=== PATIENT | male | born 1990 | race Caucasian/White ===

== ENCOUNTER 2022-06-28 18:23 | Emergency (ER) | payer OTHER ==
[2022-06-28] MEDS ORDERED: MORPHINE 4 MG/ML SYR ONE (18:34)
[2022-06-28] MEDS ORDERED: ONDANSETRON 4 MG/2 ML VIAL ONE ×3 (18:34→20:38)
[2022-06-28] MEDS ORDERED: HYDROMORPHONE HCL 1 MG/ML INJ ONE ×2 (18:48→20:37)
[2022-06-28] MEDS ORDERED: DIPHENHYDRAMINE 50 MG/ML VIAL ONE (18:52)
--- NOTE | 2022-06-28 19:11 | ER ---
Nurse's Notes [facility] Name: Curtis Castorena Jr Age: 31 yrs Sex: Male : 1990 Arrival Date: 06/28/2022 Time: 18:24 Bed 4 Private MD: Diagnosis: avulsion fracture of the distal lateral humerus;Oblique fracture of the intratrochanteric and lesser trochanter left femur Presentation: 06/28 18:34 Chief complaint: EMS states: Fell riding skateboard, landed on L side, c/o pain to L ph hip/thigh area, obvious deformity to area, also c/o L elbow pain and states that he hit the L side of his face, denies LOC, IV initiated and 150 mcg Fentanyl total given. Coronavirus screen: Vaccine status: Patient reports receiving the 1st dose of the Covid vaccine. Ebola Screen: No symptoms or risks identified at this time. Initial Sepsis Screen: Does the patient meet any 2 criteria? Yes Does the patient have a suspected source of infection? No. Patient's initial sepsis screen is negative. Risk Assessment: Do you want to hurt yourself or someone else? Patient reports no desire to harm self or others. Onset of symptoms was June 28, 2022. 18:34 Method Of Arrival: EMS: [facility] ph 18:34 Acuity: NAVEEN 2 ph 19:00 Care prior to arrival: None. Mechanism of Injury: Fall skateboard. Trauma event ph details: Injury occurred in the [facility], Injury occurred: on a street or highway. Injury occurred: June 28, 2022. Triage Assessment: 18:37 General: Appears in no apparent distress. uncomfortable, slender, well groomed, ph Behavior is calm, cooperative, appropriate for age. Pain: Complains of pain in left elbow and left quadriceps. Neuro: Level of Consciousness is awake, alert, obeys commands, Oriented to person, place, time, situation. Cardiovascular: Capillary refill < 3 seconds in bilateral fingers Patient's skin is warm and dry. Respiratory: Airway is patent Respiratory effort is even, unlabored, Respiratory pattern is regular, symmetrical. GI: No signs and/or symptoms were reported involving the gastrointestinal system. Derm: Skin is healthy with good turgor, Skin is pink, warm \\T\\ dry. Musculoskeletal: Circulation, motion, and sensation intact. Range of motion: intact in all extremities, Swelling present in left quadriceps. Historical: - Allergies: 18:41 No Known Allergies; ph - PMHx: 18:41 Diabetes mellitus; ph - PSHx: 18:41 hernia repair; testicular torsion; ph - Immunization history:: Adult Immunizations unknown. - Social history:: Smoking status: Reported history of juuling and/or vaping. - Immunization history: Last tetanus immunization: Last tetanus immunization: - up to date. Screenin:44 [facility] ED Fall Risk Assessment (Adult) History of falling in the last 3 months, ph including since admission Yes- single mechanical fall (1 pt) Confusion or Disorientation No (0 pts) Intoxicated or Sedated No (0 pts) Impaired Gait Yes (1 pt) Mobility Assist Device Used Yes (1 pt) Altered Elimination No (0 pt) Score/Fall Risk Level 0 - 2 = Low Risk Oriented to surroundings, Maintained a safe environment, Educated pt \\T\\ family on fall prevention, incl call for assistance when getting out of bed, Hourly rounding (assess needs \\T\\ fall precautionary measures) done, Used ambulatory aids as needed (educated on \\T\\ assisted with). Abuse screen: Denies threats or abuse. Denies injuries from another. Nutritional screening: No deficits noted. Tuberculosis screening: No symptoms or risk factors identified. Primary Survey: 18:33 NO uncontrolled hemorrhage observed. A: The client is awake and alert. The airway is ph patent. Breathing/Chest: Spontaneous respiratory effort, equal unlabored respirations, breath sounds clear bilaterally, regular pattern, symmetrical chest rise and fall. Circulation: No external hemorrhage present. Regular and strong central pulse, skin warm/dry/normal color. Disability Pupils are equal, round, reactive to light and accommodation. Client is alert. Exposure/Environment: All clothing and personal items were removed. Forensic evidence collection is not deemed to be indicated at this time. Items placed in patient belonging bag. There is no evidence of uncontrolled external bleeding. Obvious injury(ies) are noted at this time: swelling to L thigh. 20:17 Reassessment Breathing: Spontaneous respiratory effort, equal unlabored respirations, tw5 breath sounds clear bilaterally, regular pattern with symmetrical chest rise and fall. Secondary Survey: 18:59 Musculoskeletal: Circulation, motion, and sensation intact. Bony deformity noted of ph left quadriceps Reports pain in left elbow and left quadriceps. Assessment: 18:56 Reassessment: Patient appears in no apparent distress at this time. Patient and/or ph family updated on plan of care and expected duration. Pain level reassessed. Patient is alert, oriented x 3, equal unlabored respirations, skin warm/dry/pink. Hives noted above IV site, pt denies itching, reports hx of allergies to some adhesives, ERP notified, Benadryl ordered, see MAR. 20:15 General: Appears uncomfortable, Behavior is cooperative, appropriate for age, agitated, tw5 Reports "I am in shit ton of pain.". Neuro: Level of Consciousness is awake, alert, obeys commands, Oriented to person, place, time, situation. Vital Signs: 18:34 BP 137 / 80; Pulse 57; Resp 18; Temp 97.6; Pulse Ox 100% on R/A; Weight 70.31 kg; ph Height 6 ft. 1 in. (185.42 cm); Pain 10/10; 20:15 BP 128 / 85; Pulse 90; Resp 18; Pulse Ox 100% on R/A; Pain 9/10; tw5 21:13 BP 134 / 82; Pulse 102; Resp 19; Pulse Ox 98% on R/A; kd3 18:34 Body Mass Index 20.45 (70.31 kg, 185.42 cm) ph Tania Coma Score: 18:59 Eye Response: spontaneous(4). Verbal Response: oriented(5). Motor Response: obeys ph commands(6). Total: 15. Trauma Score (Adult): 18:59 Eye Response: spontaneous(1); Verbal Response: oriented(1); Motor Response: obeys ph commands(2); Systolic BP: > 89 mm Hg(4); Respiratory Rate: 10 to 29 per min(4); Tania Score: 15; Trauma Score: 12 ED Course: 18:24 Patient arrived in ED. eb 18:26 Porsche Rosa FNP-C is [facility]. kb 18:26 Nikita Engle MD is Attending Physician. kb 18:34 Yasmin Mercedes, YUE is Primary Nurse. ph 18:37 Triage completed. ph 18:38 Arm band placed on Patient placed in an exam room, on a stretcher, on pulse oximetry. ph 19:01 Patient has correct armband on for positive identification. Placed in gown. Bed in low ph position. Call light in reach. Side rails up X2. Pulse ox on. NIBP on. Door closed. Warm blanket given. Pillow given. 19:02 Primary Nurse role handed off by Yasmin Mercedes RN tw5 19:02 Tyshawn Niki is Primary Nurse. tw5 19:05 Femur Left XRAY In Process Unspecified. EDMS 19:05 Elbow Left 3 View XRAY In Process Unspecified. EDMS 19:15 Orthoglass splint: posterior long arm splint applied to the left arm. mm9 19:28 Initiated transfer to [facility], spoke with Melani Colbert. wm 19:59 Pt accepted for transfer w/o Doc to [facility], by Lakhwinder Curtis per Melani Colbert. wm 20:17 No provider procedures requiring assistance completed. Patient transferred, IV remains tw5 in place. 20:18 Patient maintains SpO2 saturation greater than 95% on room air. tw5 20:18 Thermoregulation: warm blanket given to patient. tw5 20:28 Attending Physician role handed off by Nikita Engle MD [facility] 20:28 Checo Carcamo MD is Attending Physician. [facility] Administered Medications: 18:41 Drug: morphine 4 mg Route: IVP; Infused Over: 4 mins; Site: right forearm; ph 19:18 Follow up: Response: No adverse reaction ph 18:41 Drug: Zofran (Ondansetron) 4 mg Route: IVP; Site: right forearm; ph 19:18 Follow up: Response: No adverse reaction ph 18:47 Drug: Dilaudid (HYDROmorphone) 1 mg Route: IVP; Site: right forearm; ph 19:18 Follow up: Response: No adverse reaction ph 18:50 Drug: Benadryl (diphenhydrAMINE) 50 mg Route: IVP; Site: right forearm; ph 19:18 Follow up: Response: No adverse reaction ph 20:15 Drug: Dilaudid (HYDROmorphone) 0.5 mg Route: IVP; Site: right forearm; tw5 21:12 Follow up: Response: No adverse reaction kd3 20:15 Drug: Zofran (Ondansetron) 4 mg Route: IVP; Site: right forearm; tw5 21:12 Follow up: Response: No adverse reaction kd3 20:38 Drug: Valium (diazepam) 5 mg Route: IVP; Site: right forearm; bb 21:12 Follow up: Response: No adverse reaction kd3 20:40 Drug: Zofran (Ondansetron) 4 mg Route: IVP; Site: right forearm; bb 21:08 Follow up: Response: No adverse reaction bb 21:12 Follow up: Response: No adverse reaction kd3 20:42 Drug: Ketorolac 30 mg Route: IVP; Site: right forearm; bb 21:07 Follow up: Response: No change in condition bb 20:47 Drug: Dilaudid (HYDROmorphone) 1 mg Route: IVP; Site: right forearm; bb 21:08 Follow up: Response: No change in condition bb 21:08 Not Given (pt transferredd): Dilaudid (HYDROmorphone) 1 mg IVP once bb Medication: 18:56 VIS not applicable for this client. ph Intake: 18:59 PO: 0ml; Total: 0ml. ph Output: 18:59 Urine: 0ml; Total: 0ml. ph Outcome: 19:10 ER care complete, transfer ordered by . kb 20:17 Transferred by ground EMS tw5 20:17 Transferred Note: report called to Evangelina TURNER at [facility]. ETA for pickup 2100 20:17 Condition: stable 20:17 Discharge instructions given to patient, family, Instructed on the need for transfer. 20:50 Transferred Note: bedside report given to ems tw5 21:11 Patient's length of stay in the Emergency Department was greater than 2 hours. due to kd3 transportatrion Patient's length of stay extended due to 21:14 Patient left the ED. kd3 Signatures: Dispatcher [employer] EDNJ Porsche Rosa, MINESWEEPING OFFICERIsmaC MINESWEEPING OFFICER-Checo Caban MD MD cha Ballard, Brenda RN RN Yasmin Brown RN RN Ana Maria Alfaro Wendy wm Wood, Tiffany tw5 Gracie Sy RN RN kd3 Trinity Alfonso mm9 Corrections: (The following items were deleted from the chart) 19:34 19:28 Initiated transfer to [facility], spoke with [facility] 20:19 20:18 Immunization history Last tetanus immunization: unknown tw5 tw5 20:25 20:13 SARS-COV-2 Antigen Rapid+I.LAB.BRZ drawn and sent. bb EDMS
--- NOTE | 2022-06-28 19:11 | EDPHYS ---
Physician Documentation [facility] Name: Curtis Castorena Jr Age: 31 yrs Sex: Male : 1990 Arrival Date: 06/28/2022 Time: 18:24 Bed 4 Private MD: ED Physician Checo Carcamo HPI: 06/28 18:33 This 31 yrs old Male presents to ER via Unassigned with complaints of skateboard kb accident, leg pain . 18:33 Trauma demographics: County: The injury occurred in [place] Location of Injury: The kb injury occurred outdoors, Date: June 28, 2022. Mechanism of injury: Fall: the patient fell skateboard, and struck a concrete surface. Associated injuries: The patient sustained left quadriceps, decreased range of motion, painful injury, swelling, left elbow, decreased range of motion, painful injury. Onset: The symptoms/episode began/occurred just prior to arrival. The patient has not experienced similar symptoms in the past. The patient has not recently seen a physician. 18:37 Pt fell while trying to do a trick on a skateboard. Reports pain to left femur and kb elbow. Historical: - Allergies: 18:41 No Known Allergies; ph - PMHx: 18:41 Diabetes mellitus; ph - PSHx: 18:41 hernia repair; testicular torsion; ph - Immunization history:: Adult Immunizations unknown. - Social history:: Smoking status: Reported history of juuling and/or vaping. - Immunization history: Last tetanus immunization: Last tetanus immunization: - up to date. ROS: 18:33 Constitutional: Negative for fever, chills, and weight loss. kb 18:33 MS/extremity: Positive for decreased range of motion, pain, swelling, tenderness, of the left quadriceps. 18:33 MS/extremity: Positive for decreased range of motion, pain, of the left elbow. 18:33 All other systems are negative. Exam: 18:36 Constitutional: This is a well developed, well nourished patient who is awake, alert, kb and in no acute distress. Head/Face: Normocephalic, atraumatic. ENT: Moist Mucous membranes Cardiovascular: Regular rate and rhythm with a normal S1 and S2. No gallops, murmurs, or rubs. No pulse deficits. Respiratory: Respirations even and unlabored. No increased work of breathing. Talking in full sentences Abdomen/GI: Soft, non-tender. No distention Skin: Warm, dry with normal turgor. Normal color. Neuro: Awake and alert, GCS 15, oriented to person, place, time, and situation. Moves all extremities. Normal gait. Psych: Awake, alert, with orientation to person, place and time. Behavior, mood, and affect are within normal limits. 18:36 Musculoskeletal/extremity: Extremities: grossly normal except: noted in the left elbow: decreased ROM, pain, tenderness, noted in the left quadriceps: decreased ROM, pain, swelling, tenderness, ROM: limited active range of motion, in the left elbow and left leg, limited active range of motion due to pain, in the left elbow and left leg, Circulation is intact in all extremities. Sensation intact. Weight bearing: is unable to bear weight. Vital Signs: 18:34 BP 137 / 80; Pulse 57; Resp 18; Temp 97.6; Pulse Ox 100% on R/A; Weight 70.31 kg; ph Height 6 ft. 1 in. (185.42 cm); Pain 10/10; 20:15 BP 128 / 85; Pulse 90; Resp 18; Pulse Ox 100% on R/A; Pain 9/10; tw5 21:13 BP 134 / 82; Pulse 102; Resp 19; Pulse Ox 98% on R/A; kd3 18:34 Body Mass Index 20.45 (70.31 kg, 185.42 cm) ph Tania Coma Score: 18:59 Eye Response: spontaneous(4). Verbal Response: oriented(5). Motor Response: obeys ph commands(6). Total: 15. Trauma Score (Adult): 18:59 Eye Response: spontaneous(1); Verbal Response: oriented(1); Motor Response: obeys ph commands(2); Systolic BP: > 89 mm Hg(4); Respiratory Rate: 10 to 29 per min(4); Tania Score: 15; Trauma Score: 12 MDM: 18:26 Patient medically screened. kb 18:35 Data reviewed: vital signs, nurses notes. Data interpreted: Pulse oximetry: on room air kb is 100 %. Interpretation: normal. 18:49 ED course: pt developed hives near IV site. Benadryl ordered. kb 19:08 Counseling: I had a detailed discussion with the patient and/or guardian regarding: the kb historical points, exam findings, and any diagnostic results supporting the discharge/admit diagnosis, radiology results, the need to transfer to another facility, for higher level of care, [facility] does not immediately have the required specialist. Physician consultation: Syed Ortiz MD was contacted at 19:08, after a discussion of the case, a recommendation for transfer for higher level of care is made. 19:50 ED course: Dr Keane accepts pt to [place] without conference. . kb 06/28 20:25 Order name: SARS-COV-2 RT PCR EDMS 06/28 18:26 Order name: Femur Left XRAY; Complete Time: 19:28 kb 06/28 18:26 Order name: Elbow Left 3 View XRAY; Complete Time: 19:24 kb 06/28 18:38 Order name: Posterior Elbow Splint; Complete Time: 19:15 kb Administered Medications: 18:41 Drug: morphine 4 mg Route: IVP; Infused Over: 4 mins; Site: right forearm; ph 19:18 Follow up: Response: No adverse reaction ph 18:41 Drug: Zofran (Ondansetron) 4 mg Route: IVP; Site: right forearm; ph 19:18 Follow up: Response: No adverse reaction ph 18:47 Drug: Dilaudid (HYDROmorphone) 1 mg Route: IVP; Site: right forearm; ph 19:18 Follow up: Response: No adverse reaction ph 18:50 Drug: Benadryl (diphenhydrAMINE) 50 mg Route: IVP; Site: right forearm; ph 19:18 Follow up: Response: No adverse reaction ph 20:15 Drug: Dilaudid (HYDROmorphone) 0.5 mg Route: IVP; Site: right forearm; tw5 21:12 Follow up: Response: No adverse reaction kd3 20:15 Drug: Zofran (Ondansetron) 4 mg Route: IVP; Site: right forearm; tw5 21:12 Follow up: Response: No adverse reaction kd3 20:38 Drug: Valium (diazepam) 5 mg Route: IVP; Site: right forearm; bb 21:12 Follow up: Response: No adverse reaction kd3 20:40 Drug: Zofran (Ondansetron) 4 mg Route: IVP; Site: right forearm; bb 21:08 Follow up: Response: No adverse reaction bb 21:12 Follow up: Response: No adverse reaction kd3 20:42 Drug: Ketorolac 30 mg Route: IVP; Site: right forearm; bb 21:07 Follow up: Response: No change in condition bb 20:47 Drug: Dilaudid (HYDROmorphone) 1 mg Route: IVP; Site: right forearm; bb 21:08 Follow up: Response: No change in condition bb 21:08 Not Given (pt transferredd): Dilaudid (HYDROmorphone) 1 mg IVP once bb Disposition: 06/29 07:02 Co-signature as Attending Physician, Nikita Engle MD I agree with the assessment and rn plan of care. Attestation: The patient's history, exam findings, diagnostics, and a summary of any interventions or procedures was reviewed in detail with Porsche NIETO. Disposition Summary: 06/28/22 19:10 Transfer Ordered Transfer Location: [facility] Reason: Higher level of care kb Condition: Stable kb Problem: new kb Symptoms: are unchanged kb Accepting Physician: Dr. Keane(06/28/22 21:14) kd3 Diagnosis - Displaced femur fracture - left kb - Elbow fracture - left kb - avulsion fracture of the distal lateral humerus kb - Oblique fracture of the intratrochanteric and lesser trochanter left femur kb Forms: - Medication Reconciliation Form kb - SBAR form kb Signatures: Dispatcher [employer] Porsche Dejesus FNP-C FNP-CkCheco Browning MD MD cha Ballard, Brenda, RN RN Nikita Lake MD MD rn Hall, Patricia, RN RN Niki Villagran tw5 Gracie Sy RN RN kd3 Corrections: (The following items were deleted from the chart) 06/28 19:28 19:10 Dr valentin kb 19:52 19:28 Dr valentin kb 20:19 20:18 Immunization history Last tetanus immunization: unknown tw tw5 20:25 19:26 SARS-COV-2 Antigen Rapid+I.LAB.BRZ ordered. [facility] EDMI 21:14 19:52 Dr. Lakhwinder valentin kd3
--- NOTE | 2022-06-28 19:23 | RAD REPORT ---
EXAM DESCRIPTION: RAD - Elbow Left 3 View - 06/28/2022 7:03 pm CLINICAL HISTORY: Left elbow pain status post trauma FINDINGS: 2.6 centimeter avulsion fracture of the distal lateral humerus. This probably represents the lateral humeral condyle. If so then there is also a a dislocation of the radio capitellum joint
--- NOTE | 2022-06-28 19:25 | RAD REPORT ---
EXAM DESCRIPTION: RAD - Femur Left - 06/28/2022 7:03 pm CLINICAL HISTORY: Left leg pain FINDINGS: Oblique fracture involves the intratrochanteric and lesser trochanter left femur. It exten ds into the left femoral diaphysis. There is moderate displacement of fracture fragments and angulation present at the fracture site. The craniocaudal length of the fracture is 15 centimeters.
[2022-06-28] MEDS ORDERED: HYDROMORPHONE HCL 0.5 MG/0.5 ML INJ ONE (20:03)
[2022-06-28] MEDS ORDERED: DIAZEPAM 10 MG/2 ML INJ SYRINGE ONE (20:38)
[2022-06-28] MEDS ORDERED: KETOROLAC 30 MG/ML INJ ONE (20:38)
[2022-06-28 21:24] VITALS: TEMP 97.6
[2022-06-28 21:30] VITALS: BP 134/82; O2SAT 98
== END 2022-06-28 21:14 | disposition short-term general hospital (02) ==
LOC: ER 18:23
PROC: 2W3BX1Z Immobilization of Left Upper Arm using Splint (ICD-10-PCS; principal; 2022-06-28)
DX: S42.402A Unspecified fracture of lower end of left humerus, initial encounter for closed fracture (principal); S72.122A Displaced fracture of lesser trochanter of left femur, initial encounter for closed fracture; Z20.822 Contact with and (suspected) exposure to COVID-19
CPT/HCPCS: 73080; 73552; 96375; 96374; 99285; 29105; U0003; J1200; J3360; J1170 ×3; J2405 ×3

== ENCOUNTER 2022-09-02 19:17 | Emergency (ER) | payer OTHER ==
--- OUTSIDE RECORDS SUMMARY | 2022-09-02 19:24 | XMS REPORT | Continuity of Care Document ---
:1990 Author Organization [facility] t Address [address] [place] [address] Care Team Providers Name Role Phone Pcp, Patient Does Not Have A Primary Care Physician +[id number] JACOB BARAKAT Attending Clinician Unavailable JOHN CATHERINE Attending Clinician Unavailable COREY SANTOS Attending Clinician Unavailable Corey Clinton Attending Clinician Leonidas_A Attending Clinician Unavailable ELISEO GOLDSTEIN Attending Clinician Unavailable Jenna Lambert Attending Clinician Leonidas_A Admitting Clinician Unavailable Payers Payer Name Policy Type Policy Number Effective Date Expiration Date [facility] [id number] 2016 00:00:00 [facility] [id number] 2022 00:00:00 REGION 4 Problems Condition Condition Condition Status Onset Resolution Last Treating Co mments Source Name Details Category Date Date Treatment Clinician Date Displaced Displaced Disease Active [place] fracture fracture 2-08 Health of lateral of lateral 00:00: condyle of condyle of 00 left left humerus humerus with with routine routine healing healing Displaced Displaced Disease Active [place] fracture fracture 2-08 Health of lateral of lateral 00:00: epicondyle epicondyle 00 of left of left humerus humerus with with routine routine healing healing Displaced Displaced Disease Active UT subtrochan subtrochan 1-18 He alth teric teric 00:00: fracture fracture 00 of left of left femur, femur, initial initial encounter encounter for closed for closed fracture fracture Hyperglyce Hyperglyce Disease Active Deangelo thompson 6-28 ity of 00:00: [place] [address] Medical Branch Allergies, Adverse Reactions, Alerts Allergy Allergy Status Severity Reaction(s) Onset Inactive Treating Comm ents Source Name Type Date Date Clinician NO KNOWN Drug Active Univers ALLERGIE Class ity of S [place] [facility] Social History Social Habit Start Date Stop Date Quantity Comments Source Exposure to 2022-07-28 2022-08-07 Not sure [facility] SARS-CoV-2 (event) 00:00:00 12:37:00 [facility] 1990 [facility] [place] [facility] Medical Branch Smoking Status Start Date Stop Date Source Former Smoker [place] Gabe [facility] Tobacco smoking consumption [facility] Medical unknown Branch Medications Ordered Filled Start Stop Current Ordering Indication Dosage Frequency Signature Comments Components Source Medication Medication Date Date Medication? Clinician (SIG) Name Name magnesium 2022- Yes 2g 2 g, IV Univ ers sulfate in 09-02 Piggyback, it y of water 2 23:30: 11:29 Administer Kaleb as gram/50 mL 00 :00 over 60 Medica l (4 %) Minutes, Branch infusion 2 ONCE, 1 g dose, On Fri09/02/22 at 1730, Routine HYDROcodone 2022- Yes [id number] 1{tbl} Q6H Take 1 UT -acetaminop 2-03 -11 tablet by Vinny tyler ([place]) 00:00: 05:59 mouth 5-325 MG 00 :00 every 6 tablet (six) hours if needed for severe pain for up to 7 days. HYDROcodone 2022- Yes [id number] 1{tbl} Q6H Take 1 UT -acetaminop 2-03 02-11 tablet by Vinny tyler ([place]) 00:00: 05:59 mouth 5-325 MG 00 :00 every 6 tablet (six) hours if needed for severe pain for up to 7 days. methocarbam 2022- Yes [id number] 500mg Take 1 UT ol 07-25 tablet Health (Robaxin) 00:00: 05:59 (500 mg 500 MG 00 :00 total) by tablet mouth 1 (one) time each day if needed for muscle spasms for up to 20 days. methocarbam [id number] 500mg Take 1 UT ol 07-25 tablet Health (Robaxin) 00:00: 05:59 (500 mg 500 MG 00 :00 total) by tablet mouth 1 (one) time each day if needed for muscle spasms for up to 20 days. naloxone Yes [id number] 4mg Administer UT (Narcan) 4 07-18 1 spray (4 He alth mg/0.1 mL 00:00: 05:59 mg total) nasal spray 00 :00 into affected nostril(s) if needed for opioid reversal. May repeat every 2-3 minutes if needed, alternatin g nostrils, until medical assistance becomes available. naloxone Yes [id number] 4mg Administer UT (Narcan) 4 07-18 1 spray (4 He alth mg/0.1 mL 00:00: 05:59 mg total) nasal spray 00 :00 into affected nostril(s) if needed for opioid reversal. May repeat every 2-3 minutes if needed, alternatin g nostrils, until medical assistance becomes available. naloxone Yes [id number] 4mg Administer UT (Narcan) 4 07-18 1 spray (4 He alth mg/0.1 mL 00:00: 05:59 mg total) nasal spray 00 :00 into affected nostril(s) if needed for opioid reversal. May repeat every 2-3 minutes if needed, alternatin g nostrils, until medical assistance becomes available. naloxone Yes [id number] 4mg Administer UT (Narcan) 4 07-18 1 spray (4 He alth mg/0.1 mL 00:00: 05:59 mg total) nasal spray 00 :00 into affected nostril(s) if needed for opioid reversal. May repeat every 2-3 minutes if needed, alternatin g nostrils, until medical assistance becomes available. gabapentin Yes [id number] 300mg Q.[id number] Take 1 UT (Neurontin) 07-18 [id number] capsule Health 300 MG 00:00: 05:59 3D (300 mg capsule 00 :00 total) by mouth in the morning and 1 capsule (300 mg total) at noon and 1 capsule (300 mg total) in the evening. gabapentin 2022- Yes [id number] 300mg Q.[id number] Take 1 UT (Neurontin) 07-18 [id number] capsule Health 300 MG 00:00: 05:59 3D (300 mg capsule 00 :00 total) by mouth in the morning and 1 capsule (300 mg total) at noon and 1 capsule (300 mg total) in the evening. gabapentin 2022- Yes [id number] 300mg Q.[id number] Take 1 UT (Neurontin) 07-18 [id number] capsule Health 300 MG 00:00: 05:59 3D (300 mg capsule 00 :00 total) by mouth in the morning and 1 capsule (300 mg total) at noon and 1 capsule (300 mg total) in the evening. gabapentin 2022- Yes [id number] 300mg Q.[id number] Take 1 UT (Neurontin) 07-18 [id number] capsule Health 300 MG 00:00: 05:59 3D (300 mg capsule 00 :00 total) by mouth in the morning and 1 capsule (300 mg total) at noon and 1 capsule (300 mg total) in the evening. HYDROcodone 2022- Yes [id number] 1{tbl} Q6H Take 1 UT -acetaminop 07-18 tablet by Vinny tyler ([place]) 00:00: 05:59 mouth 5-325 MG 00 :00 every 6 tablet (six) hours if needed for severe pain for up to 7 days. methocarbam 2022- Yes [id number] 500mg Q.[id number] Take 1 UT ol 07-18 [id number] tablet Health (Robaxin) 00:00: 05:59 3D (500 mg 500 MG 00 :00 total) by tablet mouth in the morning and 1 tablet (500 mg total) at noon and 1 tablet (500 mg total) in the evening. Do all this for 7 days. HYDROcodone 2022- Yes [id number] 1{tbl} Q6H Take 1 UT -acetaminop 07-18 tablet by He chandu tyler ([place]) 00:00: 05:59 mouth 5-325 MG 00 :00 every 6 tablet (six) hours if needed for severe pain for up to 7 days. methocarbam 2022- Yes [id number] 500mg Q.[id number] Take 1 UT ol 07-18 [id number] tablet Health (Robaxin) 00:00: 05:59 3D (500 mg 500 MG 00 :00 total) by tablet mouth in the morning and 1 tablet (500 mg total) at noon and 1 tablet (500 mg total) in the evening. Do all this for 7 days. insulin Yes 20U inject 20 Unive rs glargine,hu 6-28 Units ity of .rec.anlog 14:36: under the ex (LANTUS 32 skin. Medical U-100 Branch INSULIN SC) insulin Yes 5U inject 5 Univer s lispro, 6-28 Units ity of human, 14:36: under the [place] (HUMALOG 32 skin 3 Medical U-100 (three) Branch INSULIN) times 100 unit/mL daily with injection meals. ondansetron Yes [id number] 4mg Take 1 Univers (ZOFRAN 6-28 tablet by ity of ODT) 4 mg 00:00: mouth [place] disintegrat 00 every 8 Medic al ing tablet (eight) Branch hours as needed for Nausea and Vomiting (N/V). ondansetron Yes [id number] 8mg Take 1 Univers 8 mg tablet 6-28 tablet by ity of 00:00: mouth [place] 00 every 8 Medical (eight) Branch hours as needed for Nausea and Vomiting (N/V). gabapentin gabapentin No gabapentin [place] 300 mg 300 mg 300 mg [facility] capsule capsule capsule Urolog y TAKE 1 TAKE 1 TAKE 1 CAPSULE BY CAPSULE BY CAPSULE BY MOUTH EVERY MOUTH EVERY MOUTH 8 HOURS FOR 8 HOURS FOR EVERY 8 7 DAYS. 7 DAYS. HOURS FOR 7 DAYS. hydrocodone hydrocodone No hydrocodon [place] 5 5 e 5 [facility] mg-acetamin mg-acetamin mg-acetami Urology ophen 325 ophen 325 nophen 325 mg tablet mg tablet mg tablet TAKE 1 TAKE 1 TAKE 1 TABLET BY TABLET BY TABLET BY MOUTH EVERY MOUTH EVERY MOUTH 6 HOURS FOR 6 HOURS FOR EVERY 6 UP TO 7 UP TO 7 HOURS FOR DAYS DAYS UP TO 7 NEEDED FOR NEEDED FOR DAYS SEVERE PAIN SEVERE PAIN NEEDED FOR SEVERE PAIN methocarbam methocarbam No methocarba [place] ol 750 mg ol 750 mg mol 750 mg [facility] tablet TAKE tablet TAKE tablet Urology 1 TABLET BY 1 TABLET BY TAKE 1 MOUTH EVERY MOUTH EVERY TABLET BY 6 HOURS FOR 6 HOURS FOR MOUTH 7 DAYS. 7 DAYS. EVERY 6 HOURS FOR 7 DAYS. naproxen naproxen No naproxen Iliana ston 500 mg 500 mg 500 mg [facility] tablet TAKE tablet TAKE tablet Urology 1 TABLET BY 1 TABLET BY TAKE 1 MOUTH EVERY MOUTH EVERY TABLET BY 12 HOURS 12 HOURS MOUTH FOR 7 DAYS FOR 7 DAYS EVERY 12 HOURS FOR 7 DAYS polyethylen polyethylen No polyethyle [place] e glycol e glycol ne glycol Me tro 3350 17 3350 17 3350 17 Urolog y gram/dose gram/dose gram/dose oral powder oral powder oral DISSOLVE 17 DISSOLVE 17 powder GRAMS IN GRAMS IN DISSOLVE WATER OR WATER OR 17 GRAMS JUICE AND JUICE AND IN WATER DRINK EVERY DRINK EVERY OR JUICE DAY FOR 7 DAY FOR 7 AND DRINK DAYS DAYS EVERY DAY FOR 7 DAYS gabapentin gabapentin No gabapentin [place] 300 mg 300 mg 300 mg Metro capsule capsule capsule Urolog y TAKE 1 TAKE 1 TAKE 1 CAPSULE BY CAPSULE BY CAPSULE BY MOUTH EVERY MOUTH EVERY MOUTH 8 HOURS FOR 8 HOURS FOR EVERY 8 7 DAYS. 7 DAYS. HOURS FOR 7 DAYS. hydrocodone hydrocodone No hydrocodon [place] 5 5 e 5 [facility] mg-acetamin mg-acetamin mg-acetami Urology ophen 325 ophen 325 nophen 325 mg tablet mg tablet mg tablet TAKE 1 TAKE 1 TAKE 1 TABLET BY TABLET BY TABLET BY MOUTH EVERY MOUTH EVERY MOUTH 6 HOURS FOR 6 HOURS FOR EVERY 6 UP TO 7 UP TO 7 HOURS FOR DAYS DAYS UP TO 7 NEEDED FOR NEEDED FOR DAYS SEVERE PAIN SEVERE PAIN NEEDED FOR SEVERE PAIN methocarbam methocarbam No methocarba [place] ol 750 mg ol 750 mg mol 750 mg [facility] tablet TAKE tablet TAKE tablet Urology 1 TABLET BY 1 TABLET BY TAKE 1 MOUTH EVERY MOUTH EVERY TABLET BY 6 HOURS FOR 6 HOURS FOR MOUTH 7 DAYS. 7 DAYS. EVERY 6 HOURS FOR 7 DAYS. naproxen naproxen No naproxen Iliana ston 500 mg 500 mg 500 mg [facility] tablet TAKE tablet TAKE tablet Urology 1 TABLET BY 1 TABLET BY TAKE 1 MOUTH EVERY MOUTH EVERY TABLET BY 12 HOURS 12 HOURS MOUTH FOR 7 DAYS FOR 7 DAYS EVERY 12 HOURS FOR 7 DAYS polyethylen polyethylen No polyethyle [place] e glycol e glycol ne glycol Me tro 3350 17 3350 17 3350 17 Urolog y gram/dose gram/dose gram/dose oral powder oral powder oral DISSOLVE 17 DISSOLVE 17 powder GRAMS IN GRAMS IN DISSOLVE WATER OR WATER OR 17 GRAMS JUICE AND JUICE AND IN WATER DRINK EVERY DRINK EVERY OR JUICE DAY FOR 7 DAY FOR 7 AND DRINK DAYS DAYS EVERY DAY FOR 7 DAYS gabapentin gabapentin No gabapentin [place] 300 mg 300 mg 300 mg Metro capsule capsule capsule Urolog y TAKE 1 TAKE 1 TAKE 1 CAPSULE BY CAPSULE BY CAPSULE BY MOUTH EVERY MOUTH EVERY MOUTH 8 HOURS FOR 8 HOURS FOR EVERY 8 7 DAYS. 7 DAYS. HOURS FOR 7 DAYS. hydrocodone hydrocodone No hydrocodon [place] 5 5 e 5 [facility] mg-acetamin mg-acetamin mg-acetami Urology ophen 325 ophen 325 nophen 325 mg tablet mg tablet mg tablet TAKE 1 TAKE 1 TAKE 1 TABLET BY TABLET BY TABLET BY MOUTH EVERY MOUTH EVERY MOUTH 6 HOURS FOR 6 HOURS FOR EVERY 6 UP TO 7 UP TO 7 HOURS FOR DAYS DAYS UP TO 7 NEEDED FOR NEEDED FOR DAYS SEVERE PAIN SEVERE PAIN NEEDED FOR SEVERE PAIN methocarbam methocarbam No methocarba [place] ol 750 mg ol 750 mg mol 750 mg [facility] tablet TAKE tablet TAKE tablet Urology 1 TABLET BY 1 TABLET BY TAKE 1 MOUTH EVERY MOUTH EVERY TABLET BY 6 HOURS FOR 6 HOURS FOR MOUTH 7 DAYS. 7 DAYS. EVERY 6 HOURS FOR 7 DAYS. naproxen naproxen No naproxen Iliana ston 500 mg 500 mg 500 mg [facility] tablet TAKE tablet TAKE tablet Urology 1 TABLET BY 1 TABLET BY TAKE 1 MOUTH EVERY MOUTH EVERY TABLET BY 12 HOURS 12 HOURS MOUTH FOR 7 DAYS FOR 7 DAYS EVERY 12 HOURS FOR 7 DAYS polyethylen polyethylen No polyethyle [place] e glycol e glycol ne glycol Me tro 3350 17 3350 17 3350 17 Urolog y gram/dose gram/dose gram/dose oral powder oral powder oral DISSOLVE 17 DISSOLVE 17 powder GRAMS IN GRAMS IN DISSOLVE WATER OR WATER OR 17 GRAMS JUICE AND JUICE AND IN WATER DRINK EVERY DRINK EVERY OR JUICE DAY FOR 7 DAY FOR 7 AND DRINK DAYS DAYS EVERY DAY FOR 7 DAYS Vital Signs Vital Name Observation Time Observation Value Comments Source Systolic blood 2022-09-02 20:04:00 140 mm[Hg] Univer sity of pressure [facility] Diastolic blood 2022-09-02 20:04:00 83 mm[Hg] Unive rsity of [facility] Heart rate 2022-09-02 20:04:00 55 /min [facility] Body temperature 2022-09-02 20:04:00 36.56 Edna [facility] Res[facility] 2022-09-02 20:04:00 18 /min [facility] Body weight 2022-09-02 20:04:00 63.504 kg [facility] Oxygen saturation in 2022-09-02 20:04:00 99 /min [facility] Arterial blood by [facility] Pulse oximetry Branch Height 2022-08-14 00:00:00 73 [in_i] [facility] Body height 2022-08-07 18:54:00 185.4 cm [facility] Body weight 2022-08-07 18:54:00 70.308 kg [facility] BMI 2022-08-07 18:54:00 20.45 kg/m2 [facility] Procedures Procedure Date / Time Performed Performing Clinician Sourc e LIPASE 2022-09-02 21:29:00 Corey Santos [facility] MAGNESIUM 2022-09-02 21:29:00 Corey Santos [facility] COMP. METABOLIC PANEL 2022-09-02 21:29:00 Corey Santos Un [facility] ([id number]) [facility] CBC WITH DIFF 2022-09-02 21:29:00 Corey Santos [facility] COVID-19 (ID NOW 2022-09-02 21:29:00 Corey Santos [facility] RAPID TESTING) [facility] CONSENT/REFUSAL FOR 2022-09-02 19:47:27 Doctor Unassigned, No Un [facility] DIAGNOSIS AND Name [facility] TREATMENT Plan of Care Planned Activity Planned Date Details Comments Source Diagnostic Test 2022-08-14 urinalysis, Artemio montaño Pending 00:00:00 dipstick [code = Urology urinalysis, dipstick] Encounters Start End Encounter Admission Attending Care Care Encounter Source Date/Time Date/Time Type Type Clinicians Facility Department ID 2022-07-18 Outpatient [facility] [id number] [place] 12:27:15 [id number] [facility] 2022-07-17 Outpatient [facility] [id number] [place] 15:48:48 [id number] [facility] 2022-07-16 Outpatient [facility] [id number] [place] 13:44:41 [id number] [facility] 2022-07-09 Outpatient [facility] [id number] [place] 10:37:11 [id number] [facility] 2022 2022 Outpatient ROSHNI, [facility] [id number] [place] 12:15:00 12:15:00 [facility] 2022 2022 Outpatient JUAN, [facility] [id number] [place] 12:00:00 12:00:00 [facility] 2022-09-02 2022-09-02 Emergency X [facility] ERT [id number] [facility] 14:06:00 17:23:00 COREY ity [facility] 2022-09-02 2022-09-02 Emergency [facility] [id number] [facility] 14:06:00 17:23:00 Corey Jolly [place] [id number] ity [facility] [id number] [facility] [id number] [place] [address] Branch 2022-08-26 2022-08-26 Outpatient Hananel_A [facility] [id number] [place] 00:00:00 00:00:00 [id number] [facility] 2022-08-20 2022-08-20 Outpatient Hananel_A [facility] [id number] [place] 00:00:00 00:00:00 [id number] [facility] 2022-08-20 2022-08-[address] [facility] - [id number] [place] 00:00:00 00:00:00 Artemio Lauren [facility]: [id number] [facility] [address], - [facility] [id number] , Ph. 2022-08-15 2022-08-15 Outpatient CHRIS [facility] [id number] [place] 12:15:00 12:15:00 ELISEO anderson 2022-08-14 2022-08-14 Outpatient Hananel_A [facility] [id number] [place] 00:00:00 00:00:00 [id number] [facility] 2022-08-14 2022-08-14 Outpatient Hananel_A U [facility] [id number] [place] 00:00:00 00:00:00 [id number] [facility] 2022-08-14 2022-08-14 Agustin Cohen [facility] - [id number] [place] 00:00:00 00:00:00 Artemio Lauren MD: [id number] [facility] [address], [place] [address] , Ph. 2022-08-12 2022-08-12 Outpatient Hananel_A U [facility] [id number] [place] 00:00:00 00:00:00 [id number] [facility] 2022-08-07 2022-08-07 Office BALTA Catherine 6414 [id number] [place] 13:00:00 13:26:[address] [id number] Health [id number] 1 2022-08-07 2022-08-07 Office BALTA BARAKAT 6414 [id number] [place] 13:15:00 13:15:[address] [id number] Health [id number] 1 2022-08-07 2022-08-07 Outpatient [facility] [id number] [place] 13:00:00 13:00:00 Health 2022-07-18 2022-07-18 Office BALTA Wilkerson 6414 [id number] [place] 12:30:00 13:54:[address] [id number] Health [id number] 1 2022-07-18 2022-07-18 Office BALTA Goldstein 6414 [id number] [place] 12:15:00 13:48:[address] [id number] Health [id number] 1 2022-07-18 2022-07-18 Outpatient [facility] [id number] UT 12:45:00 12:45:00 Health 2022-07-10 2022-07-10 Out[facility] [id number] [place] 00:00:00 00:00:00 [id number] [facility] 2022-07-10 2022-07-10 Outpatient [place]anel_[place] [facility] [id number] [place] 00:00:00 00:00:00 [id number] [facility] 2022-07-05 2022-07-05 [id number] [place] 00:00:00 00:00:00 [id number] [facility] Results Test Description Test Time Test Comments Results Result Comments Source Urinalysis macro (dipstick) panel - Urine 2022-08-14 14:52:0 0 Test Item Value Reference Range Interpretation Comme nts leukocytes (test code = negative neg leukocytes) urobilinogen (test code = 0.2 E.U./dL sm amt (.5-1mg/dL) urobilinogen) protein (test code = negative See_Comment [Autom ated message] The protein) system which ge nerated this result tra nsmitted reference range : <=150 mg/d. The refer ence range was not used to interpret this result as normal/abnormal . pH (test code = pH) 6.0 4.5-8 blood (test code = blood) negative See_Comment [ Automated message] The system which ge nerated this result tra nsmitted reference range : <=3 RBC. The reference r blanca was not used to int erpret this result as normal/abnormal . specific gravity (test code 1.015 1.005-1.025 = specific gravity) ketone (test code = ketone) trace none bilirubin (test code = negative neg bilirubin) glucose (test code = >=1000 See_Comment [Autom ated message] The glucose) system which ge nerated this result tra nsmitted reference range : <=130 mg/d. The refer ence range was not used to interpret this result as normal/abnormal . color (test code = color) yellow yellow clarity (test code = clear clear or cloudy clarity) nitrite (test code = negative neg nitrite) [facility] UrologyUrinalysis macro (dipstick) panel - [id number] 14:52:00 Test Item Value Reference Range Interpretation Comments leukocytes (test code negative neg = leukocytes) urobilinogen (test 0.2 E.U./dL sm amt (.5-1mg/dL) code = urobilinogen) protein (test code = negative See_Comment [Autom ated protein) message] The sy stem which generated this result transmitted reference range : <=150 mg/d. The reference range was not used to interpret this result as normal/abnormal . pH (test code = pH) 6.0 4.5-8 blood (test code = negative See_Comment [Automat ed blood) message] The sy stem which generated this result transmitted reference range : <=3 RBC. The reference range was not used to interpret this result as normal/abnormal . specific gravity 1.015 1.005-1.025 (test code = specific gravity) ketone (test code = trace none ketone) bilirubin (test code negative neg = bilirubin) glucose (test code = >=1000 See_Comment [Autom ated glucose) message] The sy stem which generated this result transmitted reference range : <=130 mg/d. The reference range was not used to interpret this result as normal/abnormal . color (test code = yellow yellow color) clarity (test code = clear clear or cloudy clarity) nitrite (test code = negative neg nitrite) [facility] UrologyUrinalysis macro (dipstick) panel - [id number] 14:52:00 Test Item Value Reference Range Interpretation Comments leukocytes (test code negative neg = leukocytes) urobilinogen (test 0.2 E.U./dL sm amt (.5-1mg/dL) code = urobilinogen) protein (test code = negative See_Comment [Autom ated protein) message] The sy stem which generated this result transmitted reference range : <=150 mg/d. The reference range was not used to interpret this result as normal/abnormal . pH (test code = pH) 6.0 4.5-8 blood (test code = negative See_Comment [Automat ed blood) message] The sy stem which generated this result transmitted reference range : <=3 RBC. The reference range was not used to interpret this result as normal/abnormal . specific gravity 1.015 1.005-1.025 (test code = specific gravity) ketone (test code = trace none ketone) bilirubin (test code negative neg = bilirubin) glucose (test code = >=1000 See_Comment [Autom ated glucose) message] The sy stem which generated this result transmitted reference range : <=130 mg/d. The reference range was not used to interpret this result as normal/abnormal . color (test code = yellow yellow color) clarity (test code = clear clear or cloudy clarity) nitrite (test code = negative neg nitrite) [facility] Urology
[2022-09-02] MEDS ORDERED: ONDANSETRON 4 MG/2 ML VIAL ONE (20:44)
[2022-09-02] MEDS ORDERED: NA CHLORIDE 0.9% 1,000 ML ONE ×2 (20:44→21:50)
[2022-09-02] MEDS ORDERED: FAMOTIDINE 20 MG/2 ML VIAL IV ONE (20:45)
[2022-09-02 21:11] LABS: Hematocrit 43.1 % (39.6-49.0); Lymphocytes % 6.9 % (15.3-44.8); MCV 86.3 fL (80-100); MPV 9.2 fL (7.6-11.3)
[2022-09-02 21:23] LABS: ALT/SGPT 27 U/L (16-61); AST/SGOT 16 U/L (15-37); Albumin 4.9 g/dL (3.4-5.0); Alkaline Phosphatase 148 U/L (45-117); BUN Blood Urea Nitrogen 23 mg/dL (7-18); Bicarbonate 22 mmol/L (21-32); Bilirubin Total 0.6 mg/dL (0.2-1.0); Glomerular Filtration Rate 80 ml/min (=/>90); Glucose Level 301 mg/dL (74-106); Lipase 14 U/L (13-75); Potassium 3.7 mmol/L (3.5-5.1); Protein, Total 8.6 g/dL (6.4-8.2); Sodium Level 137 mmol/L (136-145)
[2022-09-02] MEDS ORDERED: INSULIN -REGULAR HUMAN 50 UNIT/0.5 ML ML ONE (21:49)
[2022-09-02] MEDS ORDERED: NA CHLORIDE 0.9% 100 ML ONE (21:50)
[2022-09-02 21:51] LABS: SARS-COV-2 RT PCR NEGATIVE (NEGATIVE)
[2022-09-02] MEDS ORDERED: PROMETHAZINE INJ 25 MG/ML AMP ONE (22:29)
[2022-09-02 23:33] LABS: Urine Blood Negative (Negative); Urine Glucose 2+ (Negative); Urine Protein 1+ (Negative); Urine Specific Gravity >=1.030 (1.005-1.030); Urine pH 5.5 (5.0-7.0)
[2022-09-02] MEDS ORDERED: D5 0.45 NS 1,000 ML IV ONE (23:52)
--- NOTE | 2022-09-03 00:47 | EDPHYS ---
Physician Documentation [facility] Name: Curtis Castorena Jr Age: 31 yrs Sex: Male : 1990 Arrival Date: 09/02/2022 Time: 19:21 Bed 17 Private MD: ED Physician Yuniel Meraz HPI: 09/02 23:49 This 31 yrs old Male presents to ER via Ambulatory with complaints of Vomiting, kb Anxiety, High Blood Sugar. 23:49 The patient presents to the emergency department with nausea, vomiting, diarrhea. kb Onset: The symptoms/episode began/occurred this morning. Possible causes: unknown. The symptoms are aggravated by nothing. The symptoms are alleviated by nothing. Associated signs and symptoms: Pertinent positives: diarrhea, nausea, vomiting. Severity of symptoms: At their worst the symptoms were moderate in the emergency department the symptoms are unchanged. The patient has experienced similar episodes in the past. The patient has not recently seen a physician. Historical: - Allergies: 20:16 No Known Allergies; bb - PMHx: 20:16 diabetes mellitus; bb - Immunization history:: Client reports receiving the Dario \T\ Dario single-dose vaccine. - Social history:: Smoking status: Patient denies any tobacco usage or history of. ROS: 23:48 Constitutional: Negative for fever, chills, and weight loss. kb 23:48 Abdomen/GI: Positive for nausea, vomiting, and diarrhea. 23:48 All other systems are negative. Exam: 23:48 Constitutional: This is a well developed, well nourished patient who is awake, alert, kb and in no acute distress. Head/Face: Normocephalic, atraumatic. ENT: Moist Mucous membranes Cardiovascular: Regular rate and rhythm with a normal S1 and S2. No gallops, murmurs, or rubs. No pulse deficits. Respiratory: Respirations even and unlabored. No increased work of breathing. Talking in full sentences Abdomen/GI: Soft, non-tender. No distention Skin: Warm, dry with normal turgor. Normal color. MS/ Extremity: Pulses equal, no cyanosis. Neurovascular intact. Full, normal range of motion. Neuro: Awake and alert, GCS 15, oriented to person, place, time, and situation. Moves all extremities. Normal gait. 23:52 ECG was reviewed by the Attending Physician. kb Vital Signs: 20:12 BP 142 / 81; Pulse 55; Resp 23; Temp 99.2(O); Pulse Ox 100% on R/A; Weight 65.77 kg bb (R); Height 6 ft. 1 in. (185.42 cm) (R); Pain 10/10; 20:37 BP 147 / 85; Pulse 78; Resp 16; Pulse Ox 100% ; mb9 23:38 BP 136 / 65; Pulse 78; Resp 15; Pulse Ox 99% on R/A; kl 20:12 Body Mass Index 19.13 (65.77 kg, 185.42 cm) bb MDM: 20:31 Patient medically screened. kb 23:49 Differential diagnosis: gastritis, viral gastroenteritis, gastroenteritis, DKA. Data kb reviewed: vital signs, nurses notes. Consideration of Admission/Observation Patient was admitted/placed on observation. Patient will be transferred due to capacity.. Management of patient was discussed with the following: ERP. Independent interpretation of the following test(s) in the Emergency Department EKG: See my EKG interpretation above. Historians other than the Patient: Parent: Mother. Care significantly affected by the following chronic conditions: Diabetes. Counseling: I had a detailed discussion with the patient and/or guardian regarding: the historical points, exam findings, and any diagnostic results supporting the discharge/admit diagnosis, lab results, radiology results, the need to transfer to another facility. ED course: Patient is a 31-year-old male who presents for nausea, vomiting and diarrhea that started this morning. States he feels like he is in DKA. On exam patient has no abdominal tenderness, respirations even and unlabored, lungs clear throughout, nontoxic in appearance, tolerating p.o. intake. Patient educated that he should remain n.p.o. Patient still drinking his water. Serum labs completed. Anion gap of 19 with large serum ketones. Transfer to the [facility] initiated and pending.. 09/02 20:31 Order name: CMP kb 09/02 20: Order name: Lipase kb 09/03 19:31 Order name: IV Saline Lock; Complete Time: 21:01 kb 09/02 20: Order name: Labs collected and sent; Complete Time: 21:02 kb 09/02 20: Order name: Urine Dipstick-Ancillary (obtain specimen) kb 09/02 20:31 Order name: Acetone, Serum kb 09/02 20:31 Order name: EKG; Complete Time: 20:33 kb 09/02 20:31 Order name: EKG - Nurse/Tech; Complete Time: 21:01 kb 09/02 20:37 Order name: COVID-19/FLU A+B kb 09/02 21:33 Order name: ABG kb 09/02 20:34 Order name: Glucose, Ancillary Testing; Complete Time: 20:36 EDMS 09/02 21:22 Order name: CBC with Automated Diff; Complete Time: 21:23 EDMS 09/02 21:26 Order name: Comprehensive Metabolic Panel; Complete Time: 21:32 EDMS 09/02 21:26 Order name: Lipase; Complete Time: 21:32 EDMS 09/02 21:26 Order name: Acetone Level; Complete Time: 21:32 EDMS 09/02 21:51 Order name: COVID-19/FLU A+B; Complete Time: 21:53 EDMS 09/02 23:25 Order name: Glucose, Ancillary Testing; Complete Time: 23:29 EDMS 09/02 23:33 Order name: Urine Dipstick-Ancillary; Complete Time: 23:35 EDMS EC:52 Rate is 60 beats/min. Rhythm is regular. QRS [place] is Normal. NE interval is normal at kb 120 msec. QRS interval is normal at 94 msec. QT interval is normal at 456 msec. Administered Medications: 21:02 Drug: NS 0.9% 1000 ml Route: IV; Rate: 1 bolus; Site: left antecubital; mb9 21:02 Drug: Pepcid (famotidine) 20 mg Route: IVP; Site: left antecubital; mb9 21:02 Drug: Zofran (Ondansetron) 4 mg Route: IVP; Site: left antecubital; mb9 22:04 Drug: NS 0.9% 1000 ml Route: IV; Rate: 1000 ml; Site: left antecubital; kl 22:05 Drug: Insulin Drip - (Insulin Regular Human 100 units, NS 0.9% 100 ml) {Co-Signature: cecil jb4 (Merlin Narayan RN).} Route: IV; Rate: calculated rate; Site: left antecubital; 23:30 Follow up: Response: Blood sugar is lowered; Blood sugar is lowered to 189 rate kl deccreased to 2.5 units/hr 22:25 Drug: Phenergan (promethazine) 12.5 mg Route: IM; Site: left deltoid; kl 22:49 Follow up: Response: No adverse reaction; Marked relief of symptoms kl 23:55 Drug: D5-1/2 NS 1000 ml Route: IV; Rate: 150 ml/hr; Site: left antecubital; kl Disposition Summary: 09/03/22 00:46 Transfer Ordered Accepting Physician: Dr valentin Transfer Location: [facility] kb Reason: Higher level of care kb Condition: Stable kb Problem: new kb Symptoms: are unchanged kb Diagnosis - Diabetes mellitus due to underlying condition with ketoacidosis kb Discharge Instructions: - Discharge Summary Sheet bd Forms: - SBAR form bd - Medication Reconciliation Form kb Signatures: Dispatcher [employer] EDPorsche Lyon FNP-C FNP-Chelsie Elizabeth RN aNdiya Tena RN Lissa Riddle RN RN mb9 Merlin Narayan RN jb4 Corrections: (The following items were deleted from the chart) 21:42 20:32 CBC+H.LAB.BRZ ordered. EDMS HIDALGO
--- NOTE | 2022-09-03 00:47 | ER ---
Nurse's Notes [facility] Name: Curtis Castorena Jr Age: 31 yrs Sex: Male : 1990 Arrival Date: 09/02/2022 Time: 19:21 Bed 17 Private MD: Diagnosis: Diabetes mellitus due to underlying condition with ketoacidosis Presentation: 09/02 20:12 Chief complaint: Patient states: he thinks he has DKA he has been vomiting since 0500 bb this morning with diarrhea went to [facility] this morning and he was not seen. Coronavirus screen: At this time, the client does not indicate any symptoms associated with coronavirus-19. Ebola Screen: No symptoms or risks identified at this time. Initial Sepsis Screen: Does the patient meet any 2 criteria? No. Patient's initial sepsis screen is negative. Does the patient have a suspected source of infection? No. Patient's initial sepsis screen is negative. Risk Assessment: Do you want to hurt yourself or someone else? Patient reports no desire to harm self or others. Onset of symptoms was September 02, 2022. 20:12 Method Of Arrival: Ambulatory bb 20:12 Acuity: NAVEEN 2 bb Triage Assessment: 20:16 General: Appears uncomfortable, ill, Behavior is anxious. Pain: Complains of pain in bb all over. Neuro: Level of Consciousness is awake, alert, obeys commands, Oriented to person, place, time, situation. Cardiovascular: Capillary refill < 3 seconds Patient's skin is warm and dry. Respiratory: Respiratory effort is unlabored, Respiratory pattern is tachypnea. GI: Reports vomiting, since this morning. Derm: Skin is pink, warm \T\ dry. Musculoskeletal: Circulation, motion, and sensation intact. Historical: - Allergies: 20:16 No Known Allergies; bb - PMHx: 20:16 diabetes mellitus; bb - Immunization history:: Client reports receiving the Dario \T\ Dario single-dose vaccine. - Social history:: Smoking status: Patient denies any tobacco usage or history of. Screenin:38 [facility] ED Fall Risk Assessment (Adult) History of falling in the last 3 months, mb9 including since admission No falls in past 3 months (0 pts) Confusion or Disorientation No (0 pts) Intoxicated or Sedated No (0 pts) Impaired Gait No (0 pts) Mobility Assist Device Used No (0 pt) Altered Elimination No (0 pt) Score/Fall Risk Level 0 - 2 = Low Risk Oriented to surroundings, Maintained a safe environment, Educated pt \T\ family on fall prevention, incl call for assistance when getting out of bed. Abuse screen: Denies threats or abuse. Nutritional screening: No deficits noted. Nutritional screening: No deficits noted. Tuberculosis screening: No symptoms or risk factors identified. Assessment: 20:26 Reassessment: pt brought back to ER room. mb9 20:36 General: Appears in no apparent distress. Behavior is agitated, anxious. Pain: Denies mb9 pain. Neuro: Level of Consciousness is awake, alert, obeys commands, Oriented to person, place, time, situation, Appropriate for age. Cardiovascular: Patient's skin is warm and dry. Respiratory: Airway is patent Respiratory effort is even, unlabored, Respiratory pattern is regular, symmetrical. GI: Abdomen is flat, non-distended, Bowel sounds present X 4 quads. Abd is soft Abd is non tender Reports diarrhea, intolerance of fluids, nausea. :. Derm: Skin is pink, warm \T\ dry. Musculoskeletal: Range of motion: intact in all extremities. 21:16 Reassessment: Report given to YUE Jeter. mb9 23:37 Reassessment: Patient appears in no apparent distress at this time. Patient and/or kl family updated on plan of care and expected duration. Pain level reassessed. Patient is alert, oriented x 3, equal unlabored respirations, skin warm/dry/pink. Patient states feeling better. Patient states symptoms have improved. Vital Signs: 20:12 BP 142 / 81; Pulse 55; Resp 23; Temp 99.2(O); Pulse Ox 100% on R/A; Weight 65.77 kg bb (R); Height 6 ft. 1 in. (185.42 cm) (R); Pain 10/10; 20:37 BP 147 / 85; Pulse 78; Resp 16; Pulse Ox 100% ; mb9 23:38 BP 136 / 65; Pulse 78; Resp 15; Pulse Ox 99% on R/A; kl 20:12 Body Mass Index 19.13 (65.77 kg, 185.42 cm) ED Course: 19:21 Patient arrived in ED. ja2 19:52 Porsche Rosa FNP-C is PHCP. kb 19:52 Yuniel Merza MD is Attending Physician. kb 20:16 Triage completed. bb 20:16 Arm band placed on. bb 20:26 Lissa Ospina, YUE is Primary Nurse. mb9 20:38 Placed in gown. Bed in low position. Call light in reach. Side rails up X 1. Client mb9 placed on continuous cardiac and pulse oximetry monitoring. NIBP monitoring applied. groundwater monitoring technician on. 21:01 COVID-19/FLU A+B Sent. mb9 21:01 CMP Sent. mb9 21:01 Lipase Sent. mb9 21:02 EKG done, by ED staff, reviewed by Porsche NIETO. Inserted saline lock: 20 mb9 gauge in left antecubital area, using aseptic technique. Blood collected. 22:45 No apparent distress. Resting quietly. Appears to be sleeping. kl 23:39 Clinicals faxed to [facility]. bd Administered Medications: 21:02 Drug: NS 0.9% 1000 ml Route: IV; Rate: 1 bolus; Site: left antecubital; mb9 21:02 Drug: Pepcid (famotidine) 20 mg Route: IVP; Site: left antecubital; mb9 21:02 Drug: Zofran (Ondansetron) 4 mg Route: IVP; Site: left antecubital; mb9 22:04 Drug: NS 0.9% 1000 ml Route: IV; Rate: 1000 ml; Site: left antecubital; kl 22:05 Drug: Insulin Drip - (Insulin Regular Human 100 units, NS 0.9% 100 ml) {Co-Signature: cecil jb4 (Merlin Narayan RN).} Route: IV; Rate: calculated rate; Site: left antecubital; 23:30 Follow up: Response: Blood sugar is lowered; Blood sugar is lowered to 189 rate kl deccreased to 2.5 units/hr 22:25 Drug: Phenergan (promethazine) 12.5 mg Route: IM; Site: left deltoid; kl 22:49 Follow up: Response: No adverse reaction; Marked relief of symptoms kl 23:55 Drug: D5-1/2 NS 1000 ml Route: IV; Rate: 150 ml/hr; Site: left antecubital; kl Medication: 20:38 VIS not applicable for this client. mb9 Outcome: 09/03 00:46 ER care complete, transfer ordered by . kb Signatures: Porsche Rosa, SITE COORDINATOR-C SITE COORDINATOR-Meghan Cantu Kimberly, RN RN Nadiya Goodson RN RN Becky Willson Mary Beth RN RN mb9 Merlin Narayan RN jb4 Corrections: (The following items were deleted from the chart) 09/02 21:42 21:01 [facility]+H.LAB.JANELLE drawn and sent. mb9 EDMS
[2022-09-03 01:33] LABS: Potassium 3.5 mmol/L (3.5-5.1)
[2022-09-03 03:30] VITALS: TEMP 99.2
[2022-09-03 03:32] VITALS: BP 136/65; O2SAT 99
--- NOTE | 2022-09-03 17:33 | EKG ---
Test Date: 2022-09-02 Test Time: 20:57:31 Criminal Analyst: NINO MEASUREMENT RESULTS: Intervals: Rate: 60 HI: 120 QRSD: 94 QT: 456 QTc: 456 [place]: P: 68 HI: 120 QRS: 89 T: 75 INTERPRETIVE STATEMENTS: Sinus rhythm with marked sinus arrhythmia Incomplete right bundle branch block Borderline ECG No previous ECG available for comparison Electronically Signed On 09-03-22 17:31:12 MEMBERSHIP ADMINISTRATOR by Jerman Love
== END 2022-09-03 03:25 ==
LOC: ER 19:17
DX: E11.10 Type 2 diabetes mellitus with ketoacidosis without coma (principal); Z20.822 Contact with and (suspected) exposure to COVID-19
CPT/HCPCS: 96365; 96361; 93005; 85025; 80048; 36415; 82010; 82947 ×5; 81003; 83690; 80053; 0240U; 96375; 96372; 99285; 96366; J2550; J1815; J2405; J7799; J7030 ×2

== ENCOUNTER 2023-09-28 16:37 | Emergency (ER) | payer OTHER ==
--- OUTSIDE RECORDS SUMMARY | 2023-09-28 16:40 | XMS REPORT | Continuity of Care Document ---
Author Name Unknown Address [address] [facility] [address] [place] [address] [facility] thconnect Address [address] [facility] [place] [address] Care Team Providers Care Tile Layer Name Role Phone Pcp, Patient Does Not Have A Primary Care Physic sharlene Hananel_A Attending Clinician Unavailable JACOB BARAKAT Attending Clinician UnavailJOHN Ponce Attending Clinician Unavailable COREY SANTOS Attending Clinician UnavailCorey Lynn Attending Clinician ELISEO GOLDSTEIN Attending Clinician Unavaila Jenna Pepper Attending Clinician Hananel_A Admitting Clinician Unavailable Payers Payer Name Policy Type Policy Number Effective Date Expirati on Date Source [facility] OON [id number] 2016 00:00:00 [facility] 4 [id number] 2022 00:00:00 Problems Condition Name Condition Details Condition Category Status Onset Date Resolution Date Last Treatment Date Treating Clinician Comments Source Displaced fracture of lateral condyle of left humerus with routine healing Displaced fracture of lateral condyle of left humerus with routine healing Disease Active 08-07 00:00: 00 [facility] Displaced fracture of lateral epicondyle of left humerus with routine healing Displaced fracture of lateral epicondyle of left humerus with routine healing Disease Active 08-07 00:00: 00 [facility] Displaced subtrochan teric fracture of left femur, initial encounter for closed fracture Displaced subtrochan teric fracture of left femur, initial encounter for closed fracture Disease Active 1-18 00:00: 00 [facility] Hyperglyce jay Hyperglyce jay Disease Active 6- 00:00: 00 [facility] Allergies, Adverse Reactions, Alerts Allergy Name Allergy Type Status Severity Reaction(s) Onset Date Inactive Date Treating Clinician Comments Source NO KNOWN ALLERGIE S Drug Class Active [facility] Social History Social Habit Start Date Stop Date Quantity Comments Source Exposure to SARS-CoV-2 (event) 2022-07-28 00:00:00 2022-08-07 12:37:00 Not sure [facility] Sex Assigned At 1990 00:00:00 1990 00:00:00 [facility] Smoking Status Start Date Stop Date Source Former Smoker [facility] Tobacco smoking consumption unknown [facility] Medications Ordered Medication Name Filled Medication Name Start Date Stop Date Current Medication? Ordering Clinician Indication Dosage Frequency Signature (SIG) Comments Components Source magnesium sulfate in water 2 gram/50 mL (4 %) infusion 2 g 3 23:30: 00 09-03 11:29 :00 No 2g 2 g, IV Piggyback, Administer over 60 Minutes, ONCE, 1 dose, On Fri09/02/22 at 1730, Routine [facility] HYDROcodone -acetaminop hen (Navajo) 5-325 MG tablet 2- 00:00: 00 08-10 05:59 :00 No [id number] 1{tbl} Q6H Take 1 tablet by mouth every 6 (six) hours if needed for severe pain for up to 7 days. [facility] HYDROcodone -acetaminop hen (Navajo) 5-325 MG tablet 2-03 00:00: 00 08-10 05:59 :00 No [id number] 1{tbl} Q6H Take 1 tablet by mouth every 6 (six) hours if needed for severe pain for up to 7 days. [facility] methocarbam ol (Robaxin) 500 MG tablet 1-26 00:00: 00 08-15 05:59 :00 No [id number] 500mg Take 1 tablet (500 mg total) by mouth 1 (one) time each day if needed for muscle spasms for up to 20 days. [facility] methocarbam ol (Robaxin) 500 MG tablet 07-25 00:00: 00 08-15 05:59 :00 No [id number] 500mg Take 1 tablet (500 mg total) by mouth 1 (one) time each day if needed for muscle spasms for up to 20 days. [facility] naloxone (Narcan) 4 mg/0.1 mL nasal spray 07-18 00:00: 00 07-19 05:59 :00 No [id number] 4mg Administer 1 spray (4 mg total) into affected nostril(s) if needed for opioid reversal. May repeat every 2-3 minutes if needed, alternatin g nostrils, until medical assistance becomes available. [facility] naloxone (Narcan) 4 mg/0.1 mL nasal spray 07-18 00:00: 00 07-19 05:59 :00 No [id number] 4mg Administer 1 spray (4 mg total) into affected nostril(s) if needed for opioid reversal. May repeat every 2-3 minutes if needed, alternatin g nostrils, until medical assistance becomes available. [facility] naloxone (Narcan) 4 mg/0.1 mL nasal spray 07-18 00:00: 00 07-19 05:59 :00 No [id number] 4mg Administer 1 spray (4 mg total) into affected nostril(s) if needed for opioid reversal. May repeat every 2-3 minutes if needed, alternatin g nostrils, until medical assistance becomes available. [facility] naloxone (Narcan) 4 mg/0.1 mL nasal spray 07-18 00:00: 00 07-19 05:59 :00 No [id number] 4mg Administer 1 spray (4 mg total) into affected nostril(s) if needed for opioid reversal. May repeat every 2-3 minutes if needed, alternatin g nostrils, until medical assistance becomes available. [facility] gabapentin (Neurontin) 300 MG capsule 07-18 00:00: 00 08-18 05:59 :00 No [id number] 300mg Q.[id number] 3D Take 1 capsule (300 mg total) by mouth in the morning and 1 capsule (300 mg total) at noon and 1 capsule (300 mg total) in the evening. [facility] gabapentin (Neurontin) 300 MG capsule 07-18 00:00: 00 08-18 05:59 :00 No [id number] 300mg Q.[id number] 3D Take 1 capsule (300 mg total) by mouth in the morning and 1 capsule (300 mg total) at noon and 1 capsule (300 mg total) in the evening. [facility] gabapentin (Neurontin) 300 MG capsule 07-18 00:00: 00 08-18 05:59 :00 No [id number] 300mg Q.[id number] 3D Take 1 capsule (300 mg total) by mouth in the morning and 1 capsule (300 mg total) at noon and 1 capsule (300 mg total) in the evening. [facility] gabapentin (Neurontin) 300 MG capsule 07-18 00:00: 00 08-18 05:59 :00 No [id number] 300mg Q.[id number] 3D Take 1 capsule (300 mg total) by mouth in the morning and 1 capsule (300 mg total) at noon and 1 capsule (300 mg total) in the evening. [facility] HYDROcodone -acetaminop hen ([place]ajo) 5-325 MG tablet 07-18 00:00: 00 07-26 05:59 :00 No [id number] 1{tbl} Q6H Take 1 tablet by mouth every 6 (six) hours if needed for severe pain for up to 7 days. [facility] methocarbam ol (Robaxin) 500 MG tablet 07-18 00:00: 00 07-26 05:59 :00 No [id number] 500mg Q.[id number] 3D Take 1 tablet (500 mg total) by mouth in the morning and 1 tablet (500 mg total) at noon and 1 tablet (500 mg total) in the evening. Do all this for 7 days. [facility] HYDROcodone -acetaminop hen ([place]ajo) 5-325 MG tablet 07-18 00:00: 00 07-26 05:59 :00 No [id number] 1{tbl} Q6H Take 1 tablet by mouth every 6 (six) hours if needed for severe pain for up to 7 days. [facility] methocarbam ol (Robaxin) 500 MG tablet 07-18 00:00: 00 07-26 05:59 :00 No [id number] 500mg Q.[id number] 3D Take 1 tablet (500 mg total) by mouth in the morning and 1 tablet (500 mg total) at noon and 1 tablet (500 mg total) in the evening. Do all this for 7 days. [facility] insulin glarginegilaanlog (LANTUS U-100 INSULIN SC) 12-25 14:36: 32 Yes 20U inject 20 Units under the skin. [facility] insulin lispro, human, (HUMALOG U-100 INSULIN) 100 unit/mL injection 12-25 14:36: 32 Yes 5U inject 5 Units under the skin 3 (three) times daily with meals. [facility] ondansetron (ZOFRAN ODT) 4 mg disintegrat ing tablet 12-25 00:00: 00 Yes [id number] 4mg Take 1 tablet by mouth every 8 (eight) hours as needed for Nausea and Vomiting (N/V). [facility] ondansetron 8 mg tablet 12-25 00:00: 00 Yes [id number] 8mg Take 1 tablet by mouth every 8 (eight) hours as needed for Nausea and Vomiting (N/V). [facility] gabapentin 300 mg capsule TAKE 1 CAPSULE BY MOUTH EVERY 8 HOURS FOR 7 DAYS. gabapentin 300 mg capsule TAKE 1 CAPSULE BY MOUTH EVERY 8 HOURS FOR 7 DAYS. No gabapentin 300 mg capsule TAKE 1 CAPSULE BY MOUTH EVERY 8 HOURS FOR 7 DAYS. [facility] hydrocodone 5 mg-acetamin ophen 325 mg tablet TAKE 1 TABLET BY MOUTH EVERY 6 HOURS FOR UP TO 7 DAYS NEEDED FOR SEVERE PAIN hydrocodone 5 mg-acetamin ophen 325 mg tablet TAKE 1 TABLET BY MOUTH EVERY 6 HOURS FOR UP TO 7 DAYS NEEDED FOR SEVERE PAIN No hydrocodon e 5 mg-acetami nophen 325 mg tablet TAKE 1 TABLET BY MOUTH EVERY 6 HOURS FOR UP TO 7 DAYS NEEDED FOR SEVERE PAIN [facility] methocarbam ol 750 mg tablet TAKE 1 TABLET BY MOUTH EVERY 6 HOURS FOR 7 DAYS. methocarbam ol 750 mg tablet TAKE 1 TABLET BY MOUTH EVERY 6 HOURS FOR 7 DAYS. No methocarba mol 750 mg tablet TAKE 1 TABLET BY MOUTH EVERY 6 HOURS FOR 7 DAYS. [facility] naproxen 500 mg tablet TAKE 1 TABLET BY MOUTH EVERY 12 HOURS FOR 7 DAYS naproxen 500 mg tablet TAKE 1 TABLET BY MOUTH EVERY 12 HOURS FOR 7 DAYS No naproxen 500 mg tablet TAKE 1 TABLET BY MOUTH EVERY 12 HOURS FOR 7 DAYS [facility] polyethylen e glycol 3350 17 gram/dose oral powder DISSOLVE 17 GRAMS IN WATER OR JUICE AND DRINK EVERY DAY FOR 7 DAYS polyethylen e glycol 3350 17 gram/dose oral powder DISSOLVE 17 GRAMS IN WATER OR JUICE AND DRINK EVERY DAY FOR 7 DAYS No polyethyle ne glycol 3350 17 gram/dose oral powder DISSOLVE 17 GRAMS IN WATER OR JUICE AND DRINK EVERY DAY FOR 7 DAYS [facility] gabapentin 300 mg capsule TAKE 1 CAPSULE BY MOUTH EVERY 8 HOURS FOR 7 DAYS. gabapentin 300 mg capsule TAKE 1 CAPSULE BY MOUTH EVERY 8 HOURS FOR 7 DAYS. No gabapentin 300 mg capsule TAKE 1 CAPSULE BY MOUTH EVERY 8 HOURS FOR 7 DAYS. [facility] hydrocodone 5 mg-acetamin ophen 325 mg tablet TAKE 1 TABLET BY MOUTH EVERY 6 HOURS FOR UP TO 7 DAYS NEEDED FOR SEVERE PAIN hydrocodone 5 mg-acetamin ophen 325 mg tablet TAKE 1 TABLET BY MOUTH EVERY 6 HOURS FOR UP TO 7 DAYS NEEDED FOR SEVERE PAIN No hydrocodon e 5 mg-acetami nophen 325 mg tablet TAKE 1 TABLET BY MOUTH EVERY 6 HOURS FOR UP TO 7 DAYS NEEDED FOR SEVERE PAIN [facility] methocarbam ol 750 mg tablet TAKE 1 TABLET BY MOUTH EVERY 6 HOURS FOR 7 DAYS. methocarbam ol 750 mg tablet TAKE 1 TABLET BY MOUTH EVERY 6 HOURS FOR 7 DAYS. No methocarba mol 750 mg tablet TAKE 1 TABLET BY MOUTH EVERY 6 HOURS FOR 7 DAYS. [facility] naproxen 500 mg tablet TAKE 1 TABLET BY MOUTH EVERY 12 HOURS FOR 7 DAYS naproxen 500 mg tablet TAKE 1 TABLET BY MOUTH EVERY 12 HOURS FOR 7 DAYS No naproxen 500 mg tablet TAKE 1 TABLET BY MOUTH EVERY 12 HOURS FOR 7 DAYS [facility] polyethylen e glycol 3350 17 gram/dose oral powder DISSOLVE 17 GRAMS IN WATER OR JUICE AND DRINK EVERY DAY FOR 7 DAYS polyethylen e glycol 3350 17 gram/dose oral powder DISSOLVE 17 GRAMS IN WATER OR JUICE AND DRINK EVERY DAY FOR 7 DAYS No polyethyle ne glycol 3350 17 gram/dose oral powder DISSOLVE 17 GRAMS IN WATER OR JUICE AND DRINK EVERY DAY FOR 7 DAYS [facility] gabapentin 300 mg capsule TAKE 1 CAPSULE BY MOUTH EVERY 8 HOURS FOR 7 DAYS. gabapentin 300 mg capsule TAKE 1 CAPSULE BY MOUTH EVERY 8 HOURS FOR 7 DAYS. No gabapentin 300 mg capsule TAKE 1 CAPSULE BY MOUTH EVERY 8 HOURS FOR 7 DAYS. [facility] hydrocodone 5 mg-acetamin ophen 325 mg tablet TAKE 1 TABLET BY MOUTH EVERY 6 HOURS FOR UP TO 7 DAYS NEEDED FOR SEVERE PAIN hydrocodone 5 mg-acetamin ophen 325 mg tablet TAKE 1 TABLET BY MOUTH EVERY 6 HOURS FOR UP TO 7 DAYS NEEDED FOR SEVERE PAIN No hydrocodon e 5 mg-acetami nophen 325 mg tablet TAKE 1 TABLET BY MOUTH EVERY 6 HOURS FOR UP TO 7 DAYS NEEDED FOR SEVERE PAIN [facility] methocarbam ol 750 mg tablet TAKE 1 TABLET BY MOUTH EVERY 6 HOURS FOR 7 DAYS. methocarbam ol 750 mg tablet TAKE 1 TABLET BY MOUTH EVERY 6 HOURS FOR 7 DAYS. No methocarba mol 750 mg tablet TAKE 1 TABLET BY MOUTH EVERY 6 HOURS FOR 7 DAYS. [facility] naproxen 500 mg tablet TAKE 1 TABLET BY MOUTH EVERY 12 HOURS FOR 7 DAYS naproxen 500 mg tablet TAKE 1 TABLET BY MOUTH EVERY 12 HOURS FOR 7 DAYS No naproxen 500 mg tablet TAKE 1 TABLET BY MOUTH EVERY 12 HOURS FOR 7 DAYS [facility] polyethylen e glycol 3350 17 gram/dose oral powder DISSOLVE 17 GRAMS IN WATER OR JUICE AND DRINK EVERY DAY FOR 7 DAYS polyethylen e glycol 3350 17 gram/dose oral powder DISSOLVE 17 GRAMS IN WATER OR JUICE AND DRINK EVERY DAY FOR 7 DAYS No polyethyle ne glycol 3350 17 gram/dose oral powder DISSOLVE 17 GRAMS IN WATER OR JUICE AND DRINK EVERY DAY FOR 7 DAYS [facility] Vital Signs Vital Name Observation Time Observation Value Comments S ource Systolic blood pressure 2022-09-02 20:04:00 140 mm[Hg] [facility] Diastolic blood pressure 2022-09-02 20:04:00 83 mm[Hg] [facility] Heart rate 2022-09-02 20:04:00 55 /min [facility] Body temperature 2022-09-02 20:04:00 36.56 [place] [facility] Respiratory rate 2022-09-02 20:04:00 18 /min [facility] Body weight 2022-09-02 20:04:00 63.504 kg [facility] Oxygen saturation in Arterial blood by Pulse oximetry 2022-09-02 20:04:00 99 /min [facility] Height 2022-08-14 00:00:00 73 [in_i] [facility] Body height 2022-08-07 18:54:00 [facility] Body weight 2022-08-07 18:54:00 70.308 [facility] BMI 2022-08-07 18:54:00 20.45 kg/m2 [facility] Procedures Procedure Date / Time Performed Performing Clinicia n Source LIPASE 2022-09-02 21:29:00 Corey Santos U [facility] MAGNESIUM 2022-09-02 21:29:00 Corey Santos [facility] COMP. METABOLIC PANEL (39819) 2022-09-02 21:29:00 Corey Santos [facility] CBC WITH DIFF 2022-09-02 21:29:00 Corey Santos [facility] COVID-19 (ID NOW RAPID TESTING) 2022-09-02 21:29:00 Corey Santos [facility] CONSENT/REFUSAL FOR DIAGNOSIS AND TREATMENT 2022-09-02 19:47:27 Doctor Unassigned, [place] [facility] Plan of Care Planned Activity Planned Date Details Comments Source Diagnostic Test Pending 2022-08-14 00:00:00 urinalysis, dipstick [code = urinalysis, dipstick] [facility] Encounters Start Date/Time End Date/Time Encounter Type Admission Type Attending Clinicians Care Facility Care Department Encounter ID Source 2022-09-17 07:31:[address] [facility] [id number] [facility] 2022-09-16 15:36:[address] [facility] [id number] [facility] 2022-07-18 12:27:[address] [facility] [id number] [facility] 2022-07-17 15:48:[address] [facility] [id number] [facility] 2022-07-16 13:44:[address] [facility] [id number] [facility] 2022-07-09 10:37:[address] [facility] [id number] [facility] 2022-11-04 00:00:00 2022-11-04 00:00:00 Outpatient Hananel_A U [facility] [id number] [facility] 2022-09-30 00:00:00 2022-09-30 00:00:00 Outpatient Hananel_A [facility] [id number] [facility] 12:15:00 2022 12:15:[address] [facility] [id number] [facility] 2022 12:00:00 2022 12:00:[address] [facility] [id number] [facility] 2022 12:00:00 2022 12:00:[address] [facility] [id number] [facility] 2022-09-02 14:06:00 2022-09-02 17:23:00 Emergency X COREY SANTOS [facility] ERT [id number] [facility] 2022-09-02 14:06:00 2022-09-02 17:23:00 Emergency Corey Santos [facility] [id number] [facility] 2022-08-26 00:00:2022-08-26 00:00:00 Outpatient Hananel_A [facility] [id number] [facility] 2022-08-26 00:00:00 2022-08-26 00:00:00 Outpatient Hananel_A [facility] [id number] [facility] 2022-08-20 00:00:00 2022-08-20 00:00:00 Outpatient Hananel_A [facility] [id number] [facility] 2022-08-20 00:00:00 2022-08-20 00:00:00 Agustin Lauren MD: [id number] [address], [place] [address] [facility] [id number] [facility] 2022-08-15 12:15:00 2022-08-15 12:15:[address] [facility] [id number] [facility] 2022-08-14 00:00:00 2022-08-14 00:00:00 Outpatient Hananel_A [facility] [id number] [facility] 2022-08-14 00:00:00 2022-08-14 00:00:00 Outpatient Hananel_A [facility] [id number] [facility] 2022-08-14 00:00:00 2022-08-14 00:00:00 Agustin Lauren MD: [id number] [facility] [address], [place] [address] [address] [facility] [id number] [facility] 2022-08-12 00:00:00 2022-08-12 00:00:00 Outpatient Hananel_A [facility] [id number] [facility] 2022-08-07 13:00:00 2022-08-07 13:26:34 Office Visit John Martinez [facility] [address] [facility] [id number] [facility] 2022-08-07 13:15:00 2022-08-07 13:15:00 Office Visit JACOB BARAKAT [facility] [address] [id number] [facility] 2022-08-07 13:00:00 2022-08-07 13:00:[address] [facility] [id number] [facility] 2022-07-18 12:30:00 2022-07-18 13:54:05 Office Visit Rock Denisedixie [facility] [address] [id number] [facility] 2022-07-18 12:15:00 2022-07-18 13:48:22 Office Visit Eliseo Goldstein [facility] [address] [id number] [facility] 2022-07-18 12:45:00 2022-07-18 12:45:[address] [facility] [id number] [facility] 2022-07-10 00:00:00 2022-07-10 00:00:00 Outpatient Hananel_A [facility] [id number] [facility] 2022-07-10 00:00:00 2022-07-10 00:00:00 Outpatient Hananel_A [facility] U [id number] [facility] 2022-07-05 00:00:00 2022-07-05 00:00:00 Outpatient Hananel_A [facility] U [id number] [facility] 2022-07-03 13:15:00 2022-07-03 13:15:[address] [facility] [id number] [facility] 2022-07-01 10:00:00 2022-07-01 10:00:[address] [facility] [id number] [facility] Results Test Description Test Time Test Comments Results Result Co mments Source [facility] UrologyUrinalysis macro (dipstick) panel - [id number] 14:52:00* Test Item Value Reference Range Interpretation Comme nts leukocytes (test code = leukocytes) negative neg urobilinogen (test code = urobilinogen) 0.2 E.U./dL sm amt (.5-1mg/dL) protein (test code = protein) negative See_Comment [Automated messa ge] The system which generated this result transmitted reference range: <=150 mg/d. The reference range was not used to interpret this result as normal/abnormal. pH (test code = pH) 6.0 4.5-8 blood (test code = blood) negative See_Comment [Automated messa ge] The system which generated this result transmitted reference range: <=3 RBC. The reference range was not used to interpret this result as normal/abnormal. specific gravity (test code = specific gravity) 1.015 1.005-1.025 ketone (test code = ketone) trace none bilirubin (test code = bilirubin) negative neg glucose (test code = glucose) >=1000 See_Comment [Automated messa ge] The system which generated this result transmitted reference range: <=130 mg/d. The reference range was not used to interpret this result as normal/abnormal. color (test code = color) yellow yellow clarity (test code = clarity) clear clear or cloudy nitrite (test code = nitrite) negative neg [facility]rology[facility] macro (dipstick) panel - [id number] 14:52:00* Test Item Value Reference Range Interpretation Comme nts leukocytes (test code = leukocytes) negative neg urobilinogen (test code = urobilinogen) 0.2 E.U./dL sm amt (.5-1mg/dL) protein (test code = protein) negative See_Comment [Automated messa ge] The system which generated this result transmitted reference range: <=150 mg/d. The reference range was not used to interpret this result as normal/abnormal. pH (test code = pH) 6.0 4.5-8 blood (test code = blood) negative See_Comment [Automated messa ge] The system which generated this result transmitted reference range: <=3 RBC. The reference range was not used to interpret this result as normal/abnormal. specific gravity (test code = specific gravity) 1.015 1.005-1.025 ketone (test code = ketone) trace none bilirubin (test code = bilirubin) negative neg glucose (test code = glucose) >=1000 See_Comment [Automated [place] [employer]] The system which generated this result transmitted reference range: <=130 mg/d. The reference range was not used to interpret this result as normal/abnormal. color (test code = color) yellow yellow clarity (test code = clarity) clear clear or cloudy nitrite (test code = nitrite) negative neg [facility]
[2023-09-28] MEDS ORDERED: MORPHINE 4 MG/ML SYR ONE (17:00)
[2023-09-28] MEDS ORDERED: ONDANSETRON 4 MG (ODT) TAB ONE (17:00)
--- NOTE | 2023-09-28 17:38 | RAD REPORT ---
EXAM DESCRIPTION: RAD - Foot Left 3 View - 09/28/2023 5:28 pm CLINICAL HISTORY: PAIN COMPARISON: Knee Right 3 View dated 09/28/2023; Tib Fib Right dated 09/28/2023; Foot Right 3 View date d 09/28/2023; Ankle Right 3 View dated 09/28/2023 FINDINGS/IMPRESSION: Longitudinally oriented nondisplaced fracture involving the first toe, proximal phalanx. There is intra-articular extension.
--- NOTE | 2023-09-28 17:40 | RAD REPORT ---
EXAM DESCRIPTION: RAD - Knee Right 3 View - 09/28/2023 5:27 pm CLINICAL HISTORY: PAIN COMPARISON: No comparisons FINDINGS/IMPRESSION: Proximal tibial fracture with involvement of the tibial spine and lateral daron n of the tibial plateau. Proximal fibular fracture identified which is minimally displaced. Lipohemar throsis. CT could better delineate the fracture.
--- NOTE | 2023-09-28 17:41 | RAD REPORT ---
EXAM DESCRIPTION: RAD - Tib Fib Right - 09/28/2023 5:28 pm CLINICAL HISTORY: PAIN COMPARISON: Ankle Right 3 View dated 09/28/2023 FINDINGS/IMPRESSION: Proximal tibial and proximal fibular fracture. Reference knee radiograph. No ot her fracture of the tibia or fibula is identified. Intact ankle.
--- NOTE | 2023-09-28 17:41 | RAD REPORT ---
EXAM DESCRIPTION: RAD - Ankle Right 3 View - 09/28/2023 5:27 pm CLINICAL HISTORY: PAIN COMPARISON: No comparisons FINDINGS/IMPRESSION: No acute fracture. No malalignment. No significant focal degenerative changes.
--- NOTE | 2023-09-28 17:42 | RAD REPORT ---
EXAM DESCRIPTION: RAD - Foot Right 3 View - 09/28/2023 5:28 pm CLINICAL HISTORY: PAIN COMPARISON: No comparisons FINDINGS/IMPRESSION: No acute fracture. No malalignment. Mild degenerative changes at the first inte rphalangeal joint.
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
[2023-09-29 00:47] VITALS: BP 118/86; TEMP 97.3; O2SAT 99
== END 2023-09-28 18:22 | disposition home or self-care (01) ==
LOC: ER 16:37
DX: S82.831A Other fracture of upper and lower end of right fibula, initial encounter for closed fracture (principal); S82.101A Unspecified fracture of upper end of right tibia, initial encounter for closed fracture; S92.415A Nondisplaced fracture of proximal phalanx of left great toe, initial encounter for closed fracture
CPT/HCPCS: 73630 ×2; 73562; 73590; 73610; 96372; 99285; Q0162

== ENCOUNTER 2024-09-03 18:56 | Emergency (ER) | payer OTHER ==
--- OUTSIDE RECORDS SUMMARY | 2024-09-03 18:59 | XMS REPORT | Continuity of Care Document ---
Author Name Unknown Address [address] [place] [address] Organization [facility] Address [address] [place] [address] Care Team Providers Care Crane Ladle Person Name Role Phone No MD, Pcp Primary Care Physician Unavailab bobo Doctor Unassigned, [place] Attending Clinician U ELLIOTT [place] Attending Clinician Unavailable Elliott Linares MD Attending Clinician [phone] Ash Newby MD Attending Clinician [phone] ASH NEWBY Attending Clinician UnavailAsh Crowe Attending Clinician Unavailable WALLACE ROOT Attending Clinician Unavailable RAJAN DEAL Attending Clinician UnavailRAJAN Liu Attending Clinician Unavailprice Rivera, Generic Provider Attending Clinician Unavailable Wallace Root MD Attending Clinician [phone] Cindy Neely MD Attending Clinician [phone] Unknown, Attending Attending Clinician UnavailCINDY Lyle Attending Clinician Unavailable Fernando Attending Clinician Unavailable JACOB BARAKAT Attending Clinician UnavailJOHN Ponce Attending Clinician Unavailable COREY SANTOS Attending Clinician UnavailCorey Lynn Attending Clinician [phone] ELISEO GOLDSTEIN Attending Clinician Jenna Burton Attending Clinician Leonidas_Erin Admitting Clinician Unavailable Payers Payer Name Policy Type Policy Number Effective Date Expirati on Date Source [facility] [id number] 2016 00:00:00 [facility] 4 [id number] 2022 00:00:00 Problems Condition Name Condition Details Condition Category Status Onset Date Resolution Date Last Treatment Date Treating Clinician Comments Source Displaced fracture of lateral condyle of left humerus with routine healing Displaced fracture of lateral condyle of left humerus with routine healing Disease Active 08-07 00:00: 00 [facility] Displaced fracture of lateral epicondyle of left humerus with routine healing Displaced fracture of lateral epicondyle of left humerus with routine healing Disease Active 08-07 00:00: 00 [facility] Displaced subtrochan teric fracture of left femur, initial encounter for closed fracture Displaced subtrochan teric fracture of left femur, initial encounter for closed fracture Disease Active 07-17 00:00: 00 [facility] Hyperglyce jay Hyperglyce jay Disease Active 12-25 00:00: 00 [facility] Allergies, Adverse Reactions, Alerts Allergy Name Allergy Type Status Severity Reaction(s) Onset Date Inactive Date Treating Clinician Comments Source NO KNOWN ALLERGIE S Drug Class Active [facility] Social History Social Habit Start Date Stop Date Quantity Comments Source Sexual orientation U [facility] History of Social function 2024-01-16 00:00:00 2024-01-16 00:00:00 [facility] Exposure to SARS-CoV-2 (event) 2022-07-28 00:00:00 2022-08-07 12:37:00 Not sure [facility] Sex assigned at 1990 00:00:00 1990 00:00:00 [facility] Smoking Status Start Date Stop Date Source Former Smoker [facility] Tobacco smoking consumption unknown [facility] Medications Ordered Medication Name Filled Medication Name Start Date Stop Date Current Medication? Ordering Clinician Indication Dosage Frequency Signature (SIG) Comments Components Source Blood-Gluco se Sensor (GUARDIAN SENSOR 3) Lizzy 2023-06 00:00: 00 Yes Use as directed [facility] insulin aspart RAPID (NOVOLOG U-100 INSULIN ASPART) 100 unit/mL injection 2023-06 00:00: 00 Yes [id number] Use via insulin pump. Max dose 50 units daily. [facility] Blood-Gluco se Sensor (GUARDIAN 4 GLUCOSE SENSOR) Lizzy 03-12 00:00: 00 Yes Use as directed [facility] insulin aspart RAPID (NOVOLOG U-100 INSULIN ASPART) 100 unit/mL injection 03-12 00:00: 00 03-30 00:00 :00 No [id number] Use via insulin pump. Max dose 50 units daily. [facility] Blood-Gluco se Transmitter (DEXCOM G6 TRANSMITTER ) Lizzy 03-08 00:00: 00 Yes Use as directed [facility] Blood-Gluco se Sensor (DEXCOM G6 SENSOR) Lizzy 03-08 00:00: 00 Yes Use as directed [facility] insulin aspart RAPID (NOVOLOG U-100 INSULIN ASPART) 100 unit/mL injection 03-04 00:00: 00 03-12 00:00 :00 No Use via insulin pump. Max dose 50 units daily. [facility] insulin glarginegilarec.anlog (LANTUS U-100 INSULIN SC) 01-15 09:33: 34 Yes 20U inject 20 Units under the skin. [facility] insulin lispro, human, (HUMALOG U-100 INSULIN) 100 unit/mL injection 01-15 09:33: 34 03-12 00:00 :00 No 5U inject 5 Units under the skin in the morning and 5 Units at noon and 5 Units in the evening. inject with meals. [facility] empaglifloz in 25 mg Tab tablet 12-22 00:00: 00 Yes 12.5mg Take 0.5 tablets by mouth in the morning. [facility] traMADoL 50 mg tablet 12-22 00:00: 00 Yes 100mg Take 2 tablets by mouth as needed. [facility] HYDROcodone -acetaminop hen 5-325 mg tablet 10-05 00:00: 00 Yes 4647 1{tbl} Take 1 tablet by mouth every 6 (six) hours as needed for Pain (scale 7-10), Pain (scale 4-6) or Pain (scale 1-3). Indication s: acute pain [facility] ibuprofen 600 mg tablet 09-30 00:00: 00 Yes [id number] 600mg Take 1 tablet by mouth every 6 (six) hours as needed for Pain (scale 1-3) or Pain (scale 4-6). [facility] HYDROcodone -acetaminop hen 5-325 mg tablet 09-30 00:00: 00 10-05 00:00 :00 No 4647 1{tbl} Take 1 tablet by mouth every 6 (six) hours as needed for Pain (scale 7-10), Pain (scale 4-6) or Pain (scale 1-3) for up to 7 days. Indication s: acute pain [facility] acetaminoph en-codeine 300-30 mg tablet 09-30 00:00: 00 09-30 00:00 :00 No 4647 1{tbl} Take 1 tablet by mouth every 6 (six) hours as needed for Pain (scale 1-3), Pain (scale 4-6) or Pain (scale 7-10) for up to 7 days. Indication s: acute pain [facility] magnesium sulfate in water 2 gram/50 mL (4 %) infusion 2 g 09-02 23:30: 00 09-03 11:29 :00 No 2g 2 g, IV Piggyback, Administer over 60 Minutes, ONCE, 1 dose, On Fri09/02/22 at 1730, Routine [facility] methocarbam ol (Robaxin) 500 MG tablet 07-25 00:00: 00 08-15 05:59 :00 No [id number] 500mg Take 1 tablet (500 mg total) by mouth 1 (one) time each day if needed for muscle spasms for up to 20 days. [facility] naloxone (Narcan) 4 mg/0.1 mL nasal spray 07-18 00:00: 00 07-19 05:59 :00 No [id number] 4mg Administer 1 spray (4 mg total) into affected nostril(s) if needed for opioid reversal. May repeat every 2-3 minutes if needed, alternatin g nostrils, until medical assistance becomes available. [facility] methocarbam ol (Robaxin) 500 MG tablet 07-18 00:00: 00 07-26 05:59 :00 No [id number] 500mg [id number] 3D Take 1 tablet (500 mg total) by mouth in the morning and 1 tablet (500 mg total) at noon and 1 tablet (500 mg total) in the evening. Do all this for 7 days. [facility] insulin glarginegilarec.anlog (LANTUS U-100 INSULIN SC) 12-25 14:36: 32 Yes 20U inject 20 Units under the skin. [facility] insulin lispro, human, (HUMALOG U-100 INSULIN) 100 unit/mL injection 12-25 14:36: 32 Yes 5U inject 5 Units under the skin 3 (three) times daily with meals. [facility] ondansetron (ZOFRAN ODT) 4 mg disintegrat ing tablet 12-25 00:00: 00 Yes [id number] 4mg Take 1 tablet by mouth every 8 (eight) hours as needed for Nausea and Vomiting (N/V). [facility] ondansetron 8 mg tablet 12-25 00:00: 00 Yes [id number] 8mg Take 1 tablet by mouth every 8 (eight) hours as needed for Nausea and Vomiting (N/V). [facility] gabapentin 300 mg capsule TAKE 1 CAPSULE BY MOUTH EVERY 8 HOURS FOR 7 DAYS. gabapentin 300 mg capsule TAKE 1 CAPSULE BY MOUTH EVERY 8 HOURS FOR 7 DAYS. No gabapentin 300 mg capsule TAKE 1 CAPSULE BY MOUTH EVERY 8 HOURS FOR 7 DAYS. [facility] methocarbam ol 750 mg tablet TAKE 1 TABLET BY MOUTH EVERY 6 HOURS FOR 7 DAYS. methocarbam ol 750 mg tablet TAKE 1 TABLET BY MOUTH EVERY 6 HOURS FOR 7 DAYS. No methocarba mol 750 mg tablet TAKE 1 TABLET BY MOUTH EVERY 6 HOURS FOR 7 DAYS. [facility] naproxen 500 mg tablet TAKE 1 TABLET BY MOUTH EVERY 12 HOURS FOR 7 DAYS naproxen 500 mg tablet TAKE 1 TABLET BY MOUTH EVERY 12 HOURS FOR 7 DAYS No naproxen 500 mg tablet TAKE 1 TABLET BY MOUTH EVERY 12 HOURS FOR 7 DAYS [facility] polyethylen e glycol 3350 17 gram/dose oral [...] AND DRINK EVERY DAY FOR 7 DAYS [facility] gabapentin 300 mg capsule TAKE 1 CAPSULE BY MOUTH EVERY 8 HOURS FOR 7 DAYS. gabapentin 300 mg capsule TAKE 1 CAPSULE BY MOUTH EVERY 8 HOURS FOR 7 DAYS. No gabapentin 300 mg capsule TAKE 1 CAPSULE BY MOUTH EVERY 8 HOURS FOR 7 DAYS. [facility] methocarbam ol 750 mg tablet TAKE 1 TABLET BY MOUTH EVERY 6 HOURS FOR 7 DAYS. methocarbam ol 750 mg tablet TAKE 1 TABLET BY MOUTH EVERY 6 HOURS FOR 7 DAYS. No methocarba mol 750 mg tablet TAKE 1 TABLET BY MOUTH EVERY 6 HOURS FOR 7 DAYS. [facility] naproxen 500 mg tablet TAKE 1 TABLET BY MOUTH EVERY 12 HOURS FOR 7 DAYS naproxen 500 mg tablet TAKE 1 TABLET BY MOUTH EVERY 12 HOURS FOR 7 DAYS No naproxen 500 mg tablet TAKE 1 TABLET BY MOUTH EVERY 12 HOURS FOR 7 DAYS [facility] polyethylen e glycol 3350 17 gram/dose oral [...] AND DRINK EVERY DAY FOR 7 DAYS [facility] gabapentin 300 mg capsule TAKE 1 CAPSULE BY MOUTH EVERY 8 HOURS FOR 7 DAYS. gabapentin 300 mg capsule TAKE 1 CAPSULE BY MOUTH EVERY 8 HOURS FOR 7 DAYS. No gabapentin 300 mg capsule TAKE 1 CAPSULE BY MOUTH EVERY 8 HOURS FOR 7 DAYS. [facility] hydrocodone 5 mg-acetamin ophen 325 mg tablet [...] TO 7 DAYS NEEDED FOR SEVERE PAIN [facility] methocarbam ol 750 mg tablet TAKE 1 TABLET BY MOUTH EVERY 6 HOURS FOR 7 DAYS. methocarbam ol 750 mg tablet TAKE 1 TABLET BY MOUTH EVERY 6 HOURS FOR 7 DAYS. No methocarba mol 750 mg tablet TAKE 1 TABLET BY MOUTH EVERY 6 HOURS FOR 7 DAYS. [facility] naproxen 500 mg tablet TAKE 1 TABLET BY MOUTH EVERY 12 HOURS FOR 7 DAYS naproxen 500 mg tablet TAKE 1 TABLET BY MOUTH EVERY 12 HOURS FOR 7 DAYS No naproxen 500 mg tablet TAKE 1 TABLET BY MOUTH EVERY 12 HOURS FOR 7 DAYS [facility] polyethylen e glycol 3350 17 gram/dose oral [...] AND DRINK EVERY DAY FOR 7 DAYS [facility] Vital Signs Vital Name Observation Time Observation Value Comments S ource Systolic blood pressure 2024-03-12 15:11:00 98 mm[Hg] [facility] Diastolic blood pressure 2024-03-12 15:11:00 60 mm[Hg] [facility] Heart rate 2024-03-12 15:11:00 108 /min [facility] Body height 2024-03-12 15:11:00 185.4 cm [facility] Body weight 2024-03-12 15:11:00 65.726 kg [facility] BMI 2024-03-12 15:11:00 19.12 kg/m2 [facility] Oxygen saturation in Arterial blood by Pulse oximetry 2024-03-12 15:11:00 96 /min [facility] Systolic blood pressure 2024-01-16 14:34:00 125 mm[Hg] [facility] Diastolic blood pressure 2024-01-16 14:34:00 83 mm[Hg] [facility] Heart rate 2024-01-16 14:34:00 82 /min [facility] Respiratory rate 2024-01-16 14:34:00 17 /min [facility] Body height 2024-01-16 14:34:00 185.4 cm [facility] Body weight 2024-01-16 14:34:00 64.275 kg [facility] BMI 2024-01-16 14:34:00 18.70 kg/m2 [facility] Oxygen saturation in Arterial blood by Pulse oximetry 2024-01-16 14:34:00 100 /min [facility] Systolic blood pressure 2023-10-06 14:45:00 133 mm[Hg] [facility] Diastolic blood pressure 2023-10-06 14:45:00 87 mm[Hg] [facility] Heart rate 2023-10-06 14:45:00 99 /min [facility] Body temperature 2023-10-06 14:45:00 36.94 Edna [facility] Body height 2023-10-06 14:45:00 185.4 cm [facility] Body weight 2023-10-06 14:45:00 69.854 kg [facility] BMI 2023-10-06 14:45:00 20.32 kg/m2 [facility] Systolic blood pressure 2023-10-01 20:37:00 164 mm[Hg] [facility] Diastolic blood pressure 2023-10-01 20:37:00 99 mm[Hg] [facility] Heart rate 2023-10-01 20:36:00 88 /min [facility] Body temperature 2023-10-01 20:36:00 37.11 Edna [facility] Respiratory rate 2023-10-01 20:36:00 20 /min [facility] Body height 2023-10-01 20:36:00 185.4 cm [facility] Body weight 2023-10-01 20:36:00 69.945 kg [facility] BMI 2023-10-01 20:36:00 20.34 kg/m2 [facility] Oxygen saturation in Arterial blood by Pulse oximetry 2023-10-01 20:36:00 98 /min [facility] Systolic blood pressure 2022-09-02 20:04:00 140 mm[Hg] [facility] Diastolic blood pressure 2022-09-02 20:04:00 83 mm[Hg] [facility] Heart rate 2022-09-02 20:04:00 55 /min [facility] Body temperature 2022-09-02 20:04:00 36.56 Edna [facility] Respiratory rate 2022-09-02 20:04:00 18 /min [facility] Body weight 2022-09-02 20:04:00 63.504 kg [facility] Oxygen saturation in Arterial blood by Pulse oximetry 2022-09-02 20:04:00 99 /min [facility] Height 2022-08-14 00:00:00 73 [in_i] [facility] Body height 2022-08-07 18:54:00 185.4 cm [facility] Body weight 2022-08-07 18:54:00 70.308 [facility] BMI 2022-08-07 18:54:00 20.45 kg/m2 [facility] Procedures Procedure Date / Time Performed Performing Clinicia n Source POCT HEMOGLOBIN A1C TEST 2024-03-12 15:12:00 Ash Newby [facility] REFERRAL- REQUEST/RESPONSE 2023-12-03 16:29:41 Doctor Unassigned, [place] [facility] LIPASE 2022-09-02 21:29:00 Corey Santos [facility] MAGNESIUM 2022-09-02 21:29:00 Corey Santos U [facility] COMP. METABOLIC PANEL ([id number]) 2022-09-02 21:29:00 Corey Santos [facility] CBC WITH DIFF 2022-09-02 21:29:00 Corey Santos [facility] COVID-19 (ID NOW RAPID TESTING) 2022-09-02 21:29:00 Corey Santos [facility] CONSENT/REFUSAL FOR DIAGNOSIS AND TREATMENT 2022-09-02 19:47:27 Doctor Unassigned, [place] [facility] Plan of Care Planned Activity Planned Date Details Comments Source Diagnostic Test Pending 2022-08-14 00:00:00 urinalysis, dipstick [code = urinalysis, dipstick] [facility] Encounters Start Date/Time End Date/Time Encounter Type Admission Type Attending [facility] Care Department Encounter ID Source 2022-09-17 07:31:[address] [facility] [id number] [facility] 2022-09-16 15:36:[address] [facility] [id number] [facility] 2022-07-18 12:27:[address] [facility] [id number] [facility] 2022-07-17 15:48:[address] [facility] [id number] [facility] 2022-07-16 13:44:[address] [facility] [id number] [facility] 2022-07-09 10:37:[address] [facility] [id number] [facility] 2023-12-03 00:00:00 2024-08-14 07:36:01 Orders Only Doctor Unassigned, [place] Doctor Unassigned, [place] [facility] 1.2.840.114 350.1.13.10 4.2.7.2.686 [id number] [facility] 2024-08-10 14:30:00 2024-08-10 14:30:00 [id number] 2024-08-03 15:00:00 2024-08-03 15:00:00 [facility] [id number] [facility] 2024-03-25 00:00:00 2024-03-30 15:28:17 Patient Secure Msg Lina[place], [facility] 1.2840.114 350.1.13.10 4.2.7.2.686 [id number] [facility] 2024-03-12 00:00:00 2024-03-12 15:02:17 Refill NewbyAsh [facility] 1.2840.114 350.1.13.10 4.2.7.2.686 [id number] [facility] 2024-03-12 10:00:00 2024-03-12 11:00:30 Outpatient R ASH NEWBY [facility] [id number] [facility] 2024-03-12 10:00:00 2024-03-12 11:00:30 [facility] 1.2840.114 350.1.13.10 4.2.7.2.686 [id number] [facility] 2024-03-10 00:00:00 2024-03-10 15:02:19 Telephone Allen Ash [facility] 1.2840.114 350.1.13.10 4.2.7.2.686 [id number] [facility] 2024-03-05 00:00:00 2024-03-08 09:32:19 Telephone NewbyAsh [facility] 1.2840.114 350.1.13.10 4.2.7.2.686 [id number] [facility] 2024-03-04 00:00:00 2024-03-04 15:00:07 Telephone NewbyAsh [facility] 1.2840.114 350.1.13.10 4.2.7.2.686 [id number] [facility] 2024-03-03 00:00:00 2024-03-03 12:10:51 Telephone Ash Newby [facility] 1.2.840.114 350.1.13.10 4.2.7.2.686 [id number] [facility] 2024-02-27 13:30:00 2024-02-27 13:30:00 Outpatient R ASH [facility] [id number] [facility] 2024-02-24 00:00:00 2024-02-25 15:53:47 Telephone Ash Newby [facility] 1.2.840.114 350.1.13.10 4.2.7.2.686 [id number] [facility] 2024-01-16 09:00:00 2024-01-16 10:33:51 Outpatient R NEWBYASH BELL [facility] [id number] [facility] 2024-01-16 09:00:00 2024-01-16 10:33:51 Office Visit Ash Newby [facility] 1.2.840.114 350.1.13.10 4.2.7.2.686 [id number] [facility] 2023-11-11 13:00:00 2023-11-11 13:00:00 Outpatient WALLACE BENDER [facility] [id number] [facility] 2023-10-20 09:30:00 2023-10-20 09:30:00 Outpatient R RAJAN DEAL [facility] [id number] [facility] 2023-10-08 00:00:00 2023-10-08 00:00:00 Letter (Out) Campaigns, Generic Provider [facility] 1..840.114 350.1.13.10 4.2.7.2.686 [id number] [facility] 2023-10-06 09:00:00 2023-10-06 10:29:27 Outpatient WALLACE BENDER [facility] [id number] [facility] 2023-10-06 09:00:00 2023-10-06 10:29:27 Office Visit Wallace Root [facility] 1.840.114 350.1.13.10 4.2.7.2.686 [id number] [facility] 2023-10-01 15:20:00 2023-10-01 16:03:05 Urgent Care Cindy Neely, Attending [facility] 1..840.114 350.1.13.10 4.2.7.2.686 [id number] [facility] 2023-10-01 15:20:00 2023-10-01 16:03:05 Outpatient CINDY [facility] [id number] [facility] 2022-11-04 00:00:00 2022-11-04 00:00:00 Outpatient Hananel_A [facility] [id number] [facility] 2022-09-30 00:00:00 2022-09-30 00:00:00 Outpatient Hananel_A [facility] [id number] [facility] 2022 12:15:00 2022 12:15:[address] [facility] [id number] [facility] 2022 12:00:00 2022 12:00:[address] [facility] [id number] [facility] 2022 12:00:00 2022 12:00:[address] [facility] [id number] [facility] 2022-09-02 14:06:00 2022-09-02 17:23:00 Emergency X COREY SANTOS [facility] ERT [id number] [facility] 2022-09-02 14:06:00 2022-09-02 17:23:00 Emergency Corey Santos F [facility] 1.2.840.114 350.1.13.10 4.2.7.2.686 [id number] [facility] 2022-08-26 00:00:00 2022-08-26 00:00:00 Outpatient Hananel_A [facility] [id number] [facility] 2022-08-26 00:00:00 2022-08-26 00:00:00 Outpatient Hananel_A [facility] [id number] [facility] 2022-08-20 00:00:00 2022-08-20 00:00:00 Outpatient Hananel_A [facility] [id number] [facility] 2022-08-20 00:00:00 2022-08-20 00:00:00 Agustin Lauren MD: [id number] [facility] [address], [place] [address] , Ph. [facility] [id number] [facility] 2022-08-15 12:15:00 2022-08-15 12:15:[address] [facility] [id number] [facility] 2022-08-14 00:00:00 2022-08-14 00:00:00 Outpatient Hananel_A [facility] [id number] [facility] 2022-08-14 00:00:00 2022-08-14 00:00:00 Outpatient Hananel_A [facility] [id number] [facility] 2022-08-14 00:00:00 2022-08-14 00:00:00 Agutsin Lauren MD: [id number] [address], [place] [address] , Ph. [facility] OSVALDO - GENNY [id number] [facility] 2022-08-12 00:00:00 2022-08-12 00:00:00 Outpatient Hananel_A [facility] [id number] [facility] 2022-08-07 13:00:00 2022-08-07 13:26:34 Office Visit John Catherine [facility] [address] 1.2.840.114 350.1.13.58 9.2.7.2.686 [id number] [facility] 2022-08-07 13:15:00 2022-08-07 13:15:00 Office Visit ROSHNI, JACOB [facility] [address] 1.2.840.114 350.1.13.58 9.2.7.2.686 [id number] [facility] 2022-08-07 13:00:00 2022-08-07 13:00:[address] [facility] [id number] [facility] 2022-07-18 12:30:00 2022-07-18 13:54:05 Office Visit Jenna Wilkerson [facility] [address] 1.2.840.114 350.1.13.58 9.2.7.2.686 [id number] [facility] 2022-07-18 12:15:00 2022-07-18 13:48:22 Office Visit Eliseo Goldstein [facility] [address] 1.2.840.114 350.1.13.58 9.2.7.2.686 [id number] [facility] 2022-07-18 12:45:00 2022-07-18 12:45:[address] [facility] [id number] [facility] 2022-07-10 00:00:00 2022-07-10 00:00:00 Outpatient Hananel_A [facility] [id number] [facility] 2022-07-10 00:00:00 2022-07-10 00:00:00 Outpatient Hananel_A [facility] [id number] [facility] 2022-07-05 00:00:00 2022-07-05 00:00:00 Outpatient Hananel_A [facility] [id number] [facility] 2022-07-03 13:15:00 2022-07-03 13:15:[address] [facility] [id number] [facility] 2022-07-01 10:00:00 2022-07-01 10:00:[address] [facility] [id number] [facility] Results Test Description Test Time Test Comments Results Result Co mments Source [facility]/[id number] 16:29:41 Ordered by an unspecified provider.[facility] Hospital[facility] macro (dipstick) panel - [id number] 14:52:00* Test Item Value Reference Range Interpretation Comme nts leukocytes (test code = leukocytes) negative neg urobilinogen (test code = urobilinogen) 0.2 E.U./dL sm amt (.5-1mg/dL) protein (test code = protein) negative See_Comment [[employer]] The system which generated this result transmitted reference range: <=150 mg/d. The reference range was not used to interpret this result as normal/abnormal. pH (test code = pH) 6.0 4.5-8 blood (test code = blood) negative See_Comment [[employer]] The system which generated this result transmitted reference range: <=3 RBC. The reference range was not used to interpret this result as normal/abnormal. specific gravity (test code = specific gravity) 1.015 1.005-1.025 ketone (test code = ketone) trace none bilirubin (test code = bilirubin) negative neg glucose (test code = glucose) >=1000 See_Comment [[employer]] The system which generated this result transmitted reference range: <=130 mg/d. The reference range was not used to interpret this result as normal/abnormal. color (test code = color) yellow yellow clarity (test code = clarity) clear clear or cloudy nitrite (test code = nitrite) negative neg [facility] Urology Notes Date/Time Note Provider Source 2024-03-30 13:22:[address] Vijay sanders switched to [facility] pharm, pt verbalized understanding, stated he is waiting on sooner appointment if we have one available. [facility] 2024-03-12 15:01:17 Clarified RX with pharmacy. Order processing. No further actions. Cindy Hill RN [facility] 2024-03-11 10:23:02 Form received, awaiting provider signature. Cindy Hill RN [facility] 2024-03-10 14:20:21 [facility]ceived [facility] diabetic supplies rx, placed in providers box for review and signature. Alessandra Mendoza [facility] 2024-03-08 09:31:17 Dexcom g6 transmitter and sensors sent to [facility] Pharmacy. RX was accepted. Cindy Hill RN [facility] 2024-03-05 15:50:28 Estephania Penningtonmukul Albrecht is a 33 year old male Tasha from [employer] calling regarding pts transmitter and sensors asking for these orders to be sent over to [facility] so pt can receive supplies states [facility] They need to be sent to [facility] directly if any questions call back: [phone] extension [phone] David Cristina [facility] 2024-03-04 14:56:51 Insulin vials requested for pump training. Novolog sent per provider Arvind Downs RN [facility] 2024-03-03 12:10:40 Appointment scheduled for 03/12. Genet Arguelles RN [facility] 2024-03-03 09:54:42 Let PSS know if is ok by provider to OB patient Elio Garcia [facility] 2024-03-03 08:45:58 Estephania Castorena is a 33 year old male Pt is calling to request a sooner appt, Pt states, he was told to see Dr. Newby in two weeks, Pt denied to be scheduled next available appointment, Please advise (home) Anne Marie Houser [facility] 2024-02-24 16:44:58 Provider asked nurse to reach out [employer] for assistance with supplies. Email was sent to rep on 02/19/24. Rep responded that [facility] and that he will look into what supplier works with his insurance. Dr. Newby suggested re-scheduling patient's appointment so that patient is on pump for follow up. Patient became irate with PSS and demanded to speak directly with Dr. Newby. I offered to speak with patient and apologized for the delay in [employer] processing. Pt stated he should have had pump training set up by [facility] weeks ago. I advised patient that provider had recently asked for assistance from [facility] as [place] has had some staff changes. Pt stated "If doesn't call me tomorrow, I promise I'm coming up there and I'm going to cause some problems". Pt stated "Dr. Newby shouldn't be going on vacation while he has diabetic patients under his care, that is unacceptable. My sugars have been out of control due to this. Do you know how that feels?" I apologized to patient and told him his frustration was valid. I let him know that I would reach out to the [facility] to set up training, but that we do not know his availability so that it is usually easier for the patient to call. Pt was very upset with this as he states he was told that [facility] would set this up. I gave patient the reps number. Pt continued to voice anger with [facility]. Pt notified that I would forward his concerns to patient services. Pt disconnected phone call. [employer] rep, Lee Cleary called and given patient's info to set up training. Arvind Downs RN [facility]
[2024-09-03 19:38] LABS: Absolute Basophils 0.1 K/uL (0-0.5); Absolute Eosinophils 0.3 K/uL (0-0.5); Absolute Lymphocytes (CBC) 3.7 K/uL (0.7-4.9); Absolute Monocytes 0.7 K/uL (0.1-1.3); Absolute Neutrophil 5.5 K/uL (1.8-8.0); Basophils % 0.7 % (0-1.3); Eosinophils % 3.3 % (0-4.4); Hematocrit 42.2 % (39.6-49.0); Hemoglobin 14.2 g/dL (13.6-17.9); Lymphocytes % 35.8 % (15.3-44.8); MCH 30.3 pg (27.0-35.0); MCHC 33.7 g/dL (32.0-36.0); MPV 8.5 fL (7.6-11.3); Monocytes % 6.6 % (3.3-12.3); Neutrophils % 53.6 % (41.7-73.7); Platelets 273 thou/uL (152-406); RBC Red Blood Cell Count 4.69 M/uL (4.33-5.43); Red Cell Distribution Width 13.3 % (12.1-15.2)
[2024-09-03 19:47] LABS: PT Prothrombin Time 10.6 SECONDS (10.0-13.0); PTT, Activated Partial Thromb 44.6 SECONDS (24.3-36.9); Protime INR 0.93
--- NOTE | 2024-09-03 19:50 | EDPHYS ---
Physician Documentation [facility] Name: Curtis Castorena Jr Age: 33 yrs Sex: Male : 1990 Arrival Date: 09/03/2024 Time: 18:56 Bed 20 Private MD: ED Physician Hannah Joy HPI: 09/03 19:55 This 33 yrs old Male presents to ER via Law Enforcement with complaints of Suicidal sb4 Ideation. 19:55 Patient presents to the ED after suicide attempt and with current suicidal ideations. sb4 Patient attempted to hang himself on extension cord unsuccessfully. His girlfriend immediately called PD. Patient states that he tried to kill himself due to issues he is having with his girlfriend but will not elaborate any further. He does have a history of mental illness-bipolar disorder and depressive disorder. Had a previous suicide attempt several years ago. Historical: - Allergies: 19:10 No Known Allergies; me1 - PMHx: 19:10 diabetes mellitus; Bipolar disorder; Depressive disorder; ADHD; PTSD; me1 19:21 herniated disc lumbar spine; me1 - PSHx: 19:10 Elbow; leg; hernia repair; Testicular torsion; me1 - Immunization history:: Adult Immunizations up to date. - Infectious Disease History:: Denies. - Social history:: Smoking status: Reported history of juuling and/or vaping. ROS: 19:55 Constitutional: Negative for fever, chills, and weight loss, sb4 19:55 Psych: Positive for suicide gesture, suicidal ideation, 19:55 All other systems are negative, Exam: 19:55 Constitutional: This is a well developed, well nourished patient who is awake, alert, sb4 and in no acute distress. Head/Face: Normocephalic, atraumatic. Eyes: Extra-ocular motions intact. Periorbital areas with no swelling, redness, or edema. ENT: Mucous membranes moist. Respiratory: No increased work of breathing, no retractions or nasal flaring. Skin: Warm, dry with normal turgor. Normal color with no rashes, no lesions, and no evidence of cellulitis. 19:55 Psych: Behavior/mood is suicidal, Affect is flat, Patient having thoughts of suicide. Vital Signs: 19:14 BP 124 / 71; Pulse 77; Resp 16; Temp 98.2; Pulse Ox 99% ; Weight 72.57 kg; Height 6 ft. me1 1 in. ; 22:27 BP 119 / 68; Pulse 79; Resp 15; Temp 98.1; Pulse Ox 100% ; me1 19:14 Body Mass Index 21.11 (72.57 kg, 185.42 cm) [facility] [place]DM: 19:01 Medical Screening Exam initiated sb4 19:57 Data reviewed: vital signs, nurses notes, lab test result(s), EKG, radiologic studies. sb4 09/03 19:02 Order name: Acetaminophen; Complete Time: 19:58 sb4 09/03 19:02 Order name: Basic Metabolic Panel; Complete Time: 19:58 sb4 09/03 19:02 Order name: CBC with Diff; Complete Time: 19:46 sb4 09/03 19:02 Order name: ETOH Level; Complete Time: 19:52 sb4 09/03 19:02 Order name: Hepatic Function; Complete Time: 19:58 sb4 09/03 19:02 Order name: PT-INR; Complete Time: 19:48 sb4 09/03 19:02 Order name: Ptt, Activated; Complete Time: 19:48 sb4 09/03 19:02 Order name: Salicylate; Complete Time: 20:07 sb4 09/03 19:02 Order name: Urinalysis w/ reflexes; Complete Time: 21:24 sb4 09/03 19:02 Order name: Urine Drug Screen; Complete Time: 21:25 sb4 09/03 20:39 Order name: Glucose, Ancillary Testing; Complete Time: 20:44 EDNV 09/03 19:02 Order name: EKG - Nurse/Tech; Complete Time: 20:07 sb4 09/03 19:02 Order name: IV Saline Lock; Complete Time: 20:06 sb4 09/03 19:02 Order name: Labs collected and sent; Complete Time: 20:06 sb4 09/03 19:02 Order name: Suicide Precautions; Complete Time: 20:06 sb4 09/03 19:02 Order name: Suicide Screening (Randle); Complete Time: 20:06 sb4 EC:39 Rate is 74 beats/min. Rhythm is regular, Normal Sinus Rhythm. MD interval is normal at sb4 136 msec. QRS interval is normal at 98 msec. QT interval is normal at 392 msec. No Q waves. T waves are Normal. No ST changes noted. Clinical impression: Normal ECG. Interpreted by me. Reviewed by me. Administered Medications: 21:36 CANCELLED (Physician Discretion): ativan1 mg IVP once sb4 21:39 Drug: LORazepam IM 2 mg IM once Route: IM; Site: left deltoid; me1 22:26 Follow up: Response: No adverse reaction; Anxiety decreased me1 Disposition: 20:03 Co-signature as Attending Physician, Hannah Joy MD I reviewed the patient's care gb1 provided by the Advanced Practice Provider and agree with the diagnosis and treatment plan. Disposition Summary: 09/03/24 19:49 Transfer Ordered Notes: Transfer Location: Psych Facility sb4 Reason: Higher level of care sb4 Condition: Fair sb4 Problem: new sb4 Symptoms: are unchanged sb4 Accepting Physician: brittany(09/03/24 22:27) me1 Diagnosis - Suicidal ideations sb4 Forms: - Medication Reconciliation Form sb4 - SBAR form sb4 Signatures: Dispatcher [employer] EDJimena Ha PA-C PA-C sb4 Yvette Garza, YUE RN me1 Hannah Joy MD MD gb1 Corrections: (The following items were deleted from the chart) 19:02 19:02 ACETAMINOPHEN+C.LAB.BRZ ordered. EDMS EDMS 19:02 19:02 BASIC METABOLIC PANEL+C.LAB.BRZ ordered. EDMS EDMS 19:02 19:02 CBC+H.LAB.BRZ ordered. EDMS EDMS 19:02 19:02 ETHANOL+C.LAB.BRZ ordered. EDMS EDMS 19:02 19:02 HEPATIC FUNCTION+C.LAB.BRZ ordered. EDMS EDMS 19:02 19:02 PROTIME (+INR)+COAG.LAB.BRZ ordered. EDMS EDMS 19:02 19:02 PTT, ACTIVATED+COAG.LAB.BRZ ordered. EDMS EDMS 19:02 19:02 SALICYLATE+C.LAB.BRZ ordered. EDMS EDMS 19:02 19:02 Urinalysis+U.LAB.BRZ ordered. EDMS EDMS 19:02 19:02 URINE DRUG SCREEN+UC.LAB.BRZ ordered. EDMS EDMS 21:36 21:25 Ativan IVP 1 mg IVP once ordered. sb4 sb4 22:27 19:49 psych sb4 me1
--- NOTE | 2024-09-03 19:50 | ER ---
Nurse's Notes [facility] Name: Curtis Castorena Jr Age: 33 yrs Sex: Male : 1990 Arrival Date: 09/03/2024 Time: 18:56 Bed 20 Private MD: Diagnosis: Suicidal ideations Presentation: 09/03 19:05 Chief complaint:. Coronavirus screen: Vaccine status: Patient reports receiving the 1st me1 dose of the Covid vaccine. Ebola Screen: No symptoms or risks identified at this time. Initial Sepsis Screen:. Risk Assessment: Do you want to hurt yourself or someone else? Patient reports desire/thoughts of hurting themselves or someone else. Provider notified. Onset of symptoms is unknown. 19:05 Method Of Arrival: Law Enforcement: Fermin MARRERO ak1 19:05 Acuity: NAVEEN 2 me1 22:26 Initial Sepsis Screen: Does the patient meet any 2 criteria? No. Patient's initial me1 sepsis screen is negative. Does the patient have a suspected source of infection? No. Patient's initial sepsis screen is negative. Triage Assessment: 19:10 General: Appears well groomed, well developed, well nourished, Behavior is cooperative, me1 flat, quiet. Pain: Complains of pain in Right first toenail Pain does not radiate. Pain currently is 2 out of 10 on a pain scale. at worst was 8 out of 10 on a pain scale. Quality of pain is described as throbbing, Pain began gradually, Is continuous. Pain: Complains of pain in back of neck and right great toe. EENT: No signs and/or symptoms were reported regarding the EENT system. Neuro: Level of Consciousness is awake, alert, obeys commands, Oriented to person, place, time, situation, Appropriate for age. Cardiovascular: Patient's skin is warm and dry. Respiratory: Airway is patent Respiratory effort is even, unlabored, Respiratory pattern is regular, symmetrical. GI: No signs and/or symptoms were reported involving the gastrointestinal system. : No signs and/or symptoms were reported regarding the genitourinary system. Derm: Skin is intact, is healthy with good turgor, Skin is pink, warm \\T\\ dry. Musculoskeletal: Reports pain in Right first toenail. Musculoskeletal: Reports pain in back of neck. Injury Description: brought in by CONCHA MARRERO. Patient attempted to hang himself with an extension cord and his girlfriend interrupted and called the police. Patient does have a hx of suicide attempt from 8 years ago. Patient does not want to discuss why he wants to . States, "Lets just get me checked in and do this. I didn't want to do this. I'm here because of my girlfriend.". Historical: - Allergies: 19:10 No Known Allergies; me1 - PMHx: 19:10 diabetes mellitus; Bipolar disorder; Depressive disorder; ADHD; PTSD; me1 19:21 herniated disc lumbar spine; me1 - PSHx: 19:10 Elbow; leg; hernia repair; Testicular torsion; me1 - Immunization history:: Adult Immunizations up to date. - Infectious Disease History:: Denies. - Social history:: Smoking status: Reported history of juuling and/or vaping. Screenin:14 [facility] ED Fall Risk Assessment (Adult) History of falling in the last 3 months, ak1 including since admission No falls in past 3 months (0 pts) Confusion or Disorientation No (0 pts) Intoxicated or Sedated No (0 pts) Impaired Gait No (0 pts) Mobility Assist Device Used No (0 pt) Altered Elimination No (0 pt) Score/Fall Risk Level 0 - 2 = Low Risk Maintained a safe environment, Provided non-skid footwear, Hourly rounding (assess needs \\T\\ fall precautionary measures) done. Abuse screen: Denies threats or abuse. Nutritional screening: No deficits noted. Tuberculosis screening: No symptoms or risk factors identified. Assessment: 19:14 General: See triage assessment. me1 19:20 General: Patient is here voluntarily at this time per Officer Lina. Instructed to call me1 for RICHARD if needed.. 21:19 Reassessment: PT WANTS TO KEEP THE CURTAIN CLOSED. I ASKED PT IF WE CAN MEET CARE HOME br2 AND LEAVE CURTAIN OPEN AND CLOSE DOOR. PT BEGAN SCREAMING THAT HE WANTS THE CURTAINS CLOSED AND IF WE DON'T WE ARE GOING TO HAVE A PROBLEM. PT STATES HE WANTS IT DARK IN THE ROOM. FERMIN MARRERO NOTIFIED. 21:40 Reassessment: RICHARD obtained and placed on the chart. me1 21:50 General: Nurse to nurse done with Sayra at [facility].. me1 22:12 Reassessment: Patient accepted at [facility]. me1 Psych: 19:15 [place] Suicide Severity Screening: In the past month, have you wished you were me1 or wished you could go to sleep and not wake up? Patient responds "yes." Based off the client's responses additional C-SSRS screening is required. "In the past month, have you actually had any thoughts of killing yourself?" Patient responds "yes." Based off the client's response additional [place] suicide severity screening questions to be further documented on paper forms. "In your lifetime, have you ever done anything, started to do anything, or prepared to do anything to end your life?" Patient responds "yes." Patient reports suicidal intent occurred greater than 3 months prior. Patient hung himself tonight with an extension cord and girlfriend found him and called the yarn rewinder. Last suicide attempt was abouit 8 years ago. Subjective: Patient's mood is sad, Delusions are denied, Hallucinations are denied Having thoughts of suicide. Plan for suicide is hang himself. Objective: Patient is cooperative, Speech is normal, Affect is flat, Patient has mutilated themselves by denies. Interventions: Removed personal items and placed in bag. Patient placed in hospital gown. Searched person for dangerous items. Urine collected and sent for urine drug test. Belonging list filled out. Safety Checks: Personal items have been removed. Pt has been placed in a hallway bed/chair. No visitors are present at this time. PD Officer present at bedside. Pt denies substance abuse. Commitment: Patient will be a voluntary commitment. Vital Signs: 19:14 BP 124 / 71; Pulse 77; Resp 16; Temp 98.2; Pulse Ox 99% ; Weight 72.57 kg; Height 6 ft. me1 1 in. ; 22:27 BP 119 / 68; Pulse 79; Resp 15; Temp 98.1; Pulse Ox 100% ; me1 19:14 Body Mass Index 21.11 (72.57 kg, 185.42 cm) ak1 ED Course: 19:01 Patient arrived in ED. ll1 19:01 [facility] sb4 19:01 Hannah Joy MD is Attending Physician. sb4 19:05 Eddleman, Yvette, RN is Primary Nurse. me1 19:10 Triage completed. me1 19:10 Arm band placed on Patient placed in an exam room. me1 19:14 Patient has correct armband on for positive identification. Bed in low position. Call me1 light in reach. Side rails up X 1. Provided Education on: POC. Verbalized understanding.. 19:14 No provider procedures requiring assistance completed. me1 20:06 Initial lab(s) drawn, by ak, sent to lab. Inserted saline lock: 20 gauge in right me1 antecubital area, using aseptic technique. 20:07 EKG done, by ED staff, reviewed by Jimena Mcdonald PA-C. me1 20:14 initiated transfer with the [facility] spoke with Steffany. vk 20:40 [facility] to . vk 21:04 Urine Drug Screen Sent. me1 21:04 Urinalysis w/ reflexes Sent. me1 21:04 Urine collected: clean catch specimen, clear. me1 21:20 called [facility] spoke with Sue to verify they received documents advised they have and have vk sent to psychiatrist iron assorter. 21:26 faxed documents to Tania zheng, [facility]. vk 21:56 Behavioral Richard called for nurse to nurse transferred call to Yvette, alin sarmiento patient was accepted per Lorena at transfer center. 21:56 Patient was accepted to Dr. Eduardo \\[id number], Admin accepted Yary Rebollar \\T\\[id number]. 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 22:26 IV discontinued, intact, bleeding controlled, No redness/swelling at site. Pressure me1 dressing applied. Administered Medications: 21:36 CANCELLED (Physician Discretion): ativan1 mg IVP once sb4 21:39 Drug: LORazepam IM 2 mg IM once Route: IM; Site: left deltoid; me1 22:26 Follow up: Response: No adverse reaction; Anxiety decreased me1 Medication: 19:14 VIS not applicable for this client. me1 Outcome: 19:49 ER care complete, transfer ordered by MD. sb4 22:27 Transferred by ground EMS Note: Hilary Darling me1 22:27 Condition: stable 22:27 Instructed on the need for transfer, 22:27 Patient left the ED. me1 Signatures: Porsche Goldman RN RN ll1 Jimena Mcdonald PA-C PA-C sb4 Yvette Garza RN RN me1 Jo Ann Bean Belinda, RN RN br2 Corrections: (The following items were deleted from the chart) 21:51 19:14 BP 124 / 71; Pulse 77bpm; Resp 16bpm; Pulse Ox 99%; Temp 98.2F; me1 me1
[2024-09-03 19:57] LABS: ALT/SGPT 24 U/L (16-61); AST/SGOT 17 U/L (15-37); Albumin 4.2 g/dL (3.4-5.0); Albumin/Globulin Ratio 1.1 (1.1-1.8); Alkaline Phosphatase 116 U/L (45-117); Anion Gap 9.5 mEq/L (5.0-15.0); BUN Blood Urea Nitrogen 14 mg/dL (7-18); Bicarbonate 28 mEq/L (21-32); Bilirubin Direct < 0.2 mg/dL (0-0.2); Bilirubin Indirect, Calculated 0.3 mg/dL (0.2-0.8); Bilirubin Total 0.5 mg/dL (0.2-1.0); Globulin 3.9 g/dL (2.3-3.5); Glomerular Filtration Rate 98 ml/min (=/>90); Glucose Level 65 mg/dL (74-106); Potassium 3.5 mEq/L (3.5-5.1); Protein, Total 8.1 g/dL (6.4-8.2); Sodium Level 140 mEq/L (136-145)
[2024-09-03 21:13] LABS: Specific Gravity 1.016 (1.005-1.030); Urine Bilirubin NEGATIVE (Negative); Urine Blood Negative (Negative); Urine Clarity Clear (Clear); Urine Color Light-Yellow (Yellow); Urine Glucose NEGATIVE (Negative); Urine Ketones NEGATIVE (Negative); Urine Microscopic Reflex YN NO UMIC; Urine Nitrite NEGATIVE (Negative); Urine Protein NEGATIVE (Negative); Urine Urobilinogen Normal (Normal); Urine pH 6.5 (5.0-7.0)
[2024-09-03 21:24] LABS: Barbiturates NEGATIVE (NEGATIVE); Benzodiazepines NEGATIVE (NEGATIVE); Cocaine NEGATIVE (NEGATIVE); METHAMPHETAM NEGATIVE (NEGATIVE); Methadone NEGATIVE (NEGATIVE); Opiates NEGATIVE (NEGATIVE); Phencyclidine NEGATIVE (NEGATIVE); THC Cannibis POSITIVE (NEGATIVE)
[2024-09-03] MEDS ORDERED: LORazepam 2 MG/ML VIAL ONE (21:37)
[2024-09-03 22:53] VITALS: BP 119/68; TEMP 98.1; O2SAT 100
--- NOTE | 2024-09-07 11:14 | EKG ---
Test Date: 2024-09-03 Test Time: 19:38:05 Crozer Operator: MAURA MEASUREMENT RESULTS: Intervals: Rate: 74 IN: 136 QRSD: 98 QT: 392 QTc: 435 [place]: P: 60 IN: 136 QRS: 93 T: 61 INTERPRETIVE STATEMENTS: Normal sinus rhythm with sinus arrhythmia Normal ECG Compared to ECG 09/02/2022 20:57:31 Incomplete right bundle-branch block no longer present Electronically Signed On 09-07-24 11:03:50 CDT by Brian Dolan
== END 2024-09-03 22:27 ==
LOC: ER 18:56
DX: R45.851 Suicidal ideations (principal); F31.9 Bipolar disorder, unspecified
CPT/HCPCS: 36415; 80048; 80076; 80143; 80179; 80307; 81003; 82077; 82947; 85025; 85610; 85730; 93005; 96372; 99285

== ENCOUNTER 2024-11-17 18:36 | Inpatient (IN) | payer OTHER ==
--- OUTSIDE RECORDS SUMMARY | 2024-11-17 18:41 | XMS REPORT | Continuity of Care Document ---
Author Name Unknown Address [address] [facility] [place] [address] [facility] [address] [facility] [place] [address] Care Team Providers Care [employer] Designer Name Role Phone Pcp, Pcp Primary Care Physician UnavailJACOB Sawyer Attending Clinician UnavailJacob Ng MD Attending Clinician [phone] Doctor Unassigned, [place] Attending Clinician U ELLIOTT Staton Attending Clinician Unavailable Elliott Wayne MD Attending Clinician [phone] Ash Newby MD Attending Clinician [phone] ASH NEWBY Attending Clinician UnavailAsh Crowe Attending Clinician Unavailable WALLACE ROOT Attending Clinician Unavailable RAJAN DEAL Attending Clinician UnavailRAJAN Liu Attending Clinician Unavailprice Rivera, Generic Provider Attending Clinician Unavailable Wallace Root MD Attending Clinician [phone] Cindy Neely MD Attending Clinician [phone] Unknown, Attending Attending Clinician UnavailCINDY Lyle Attending Clinician Unavailable Hananel_A Attending Clinician Unavailable JACOB BARAKAT Attending Clinician UnavailJOHN Ponce Attending Clinician Unavailable COREY SANTOS Attending Clinician Corey Tavarez Attending Clinician ELISEO GOLDSTEIN Attending Clinician Jenna Burton Attending Clinician [phone] Fernando Admitting Clinician Unavailable Payers Payer Name Policy Type Policy Number Effective Date Expirati on Date Source [facility] OON [id number] 1 00:00:00 [facility] Other [id number] 2024 00:00:00 [facility] 4 [id number] 2022 00:00:00 Problems Condition Name Condition Details Condition Category Status Onset Date Resolution Date Last Treatment Date Treating Clinician Comments Source Displaced fracture of lateral condyle of left humerus with routine healing Displaced fracture of lateral condyle of left humerus with routine healing Disease Active 08-07 00:00: 00 [facility] Displaced fracture of lateral epicondyle of left humerus with routine healing Displaced fracture of lateral epicondyle of left humerus with routine healing Disease Active 08-07 00:00: 00 [facility] Displaced subtrochan teric fracture of left femur, initial encounter for closed fracture Displaced subtrochan teric fracture of left femur, initial encounter for closed fracture Disease Active 18 00:00: 00 [facility] Hyperglyce jay Hyperglyce jay Disease Active 12-25 00:00: 00 [facility] Allergies, Adverse Reactions, Alerts Allergy Name Allergy Type Status Severity Reaction(s) Onset Date Inactive Date Treating Clinician Comments Source NO KNOWN ALLERGIE S Drug Class Active [facility] Social History Social Habit Start Date Stop Date Quantity Comments Source Gender identity 2023-09-21 08:57:54 Identifies as male gender (finding) [facility] History of tobacco use Smokes tobacco daily [facility] Sexual orientation M rivka Lucas [facility] History of Social function 2023-11-14 00:00:00 2023-11-14 00:00:00 [facility] Exposure to SARS-CoV-2 (event) 2022-07-28 00:00:00 2022-08-07 12:37:00 Not sure [facility] Sex assigned at 1990 00:00:00 1990 00:00:00 [facility] Smoking Status Start Date Stop Date Source Smokes tobacco daily Laurita Palomino Former Smoker [facility] Tobacco smoking consumption unknown [facility] Medications Ordered Medication Name Filled Medication Name Start Date Stop Date Current Medication? Ordering Clinician Indication Dosage Frequency Signature (SIG) Comments Components Source amoxicillin -clavulanat e (Augmentin) 875-125 MG per tablet 875 mg amoxicillin -clavulanat e (Augmentin) 875-125 MG per tablet 875 mg 09-08 05:20: 00 09-08 06:29 :00 No 1{tbl} 875 mg (1 tablet), Oral, Once, On Fri09/08/24 at 0520, For 1 dose, Give with food., Suspected Indication (Select all that apply): Intra-abdo akosua Infection Laurita Palomino electrolyte solution pH 7.4 (Plasma-lyt e/Normosol/ Isolyte) infusion 1,000 mL [id number] [id number] 3-12 04:10: 00 09-08 05:10 :00 No 1000mL 1,000 mL, Intravenou s, Administer over 1 Hours, Once, On Fri09/08/24 at 0410, For 1 dose Laurita Palomino droperidol (Inapsine) injection 1.25 mg droperidol (Inapsine) injection 1.25 mg 09-08 01:05: 00 09-08 01:08 :00 No 1.25mg 1.25 mg, Intravenou s, Once, On Fri09/08/24 at 0105, For 1 dose Laurita Palomino iohexol (OMNIPaque) 350 MG/ML injection 65 mL iohexol (OMNIPaque) 350 MG/ML injection 65 mL 09-08 01:00: 28 09-08 01:27 :00 No 65mL 65 mL, Intravenou s, Once in imaging, Starting on Fri09/08/24 at 0100, For 1 dose Laurita Palomino morphine PF injection 4 mg morphine PF injection 4 mg 09-08 01:00: 00 09-08 01:08 :00 No 4mg 4 mg, Intravenou s, Once, On Fri09/08/24 at 0100, For 1 dose Laurita Palomino sodium chloride (NS) 0.9 % flush 10 mL sodium chloride (NS) 0.9 % flush 10 mL 09-08 00:55: 42 Yes 10mL [Order 1 Start] Name: Insert peripheral IV Signed Summary: Once, On Fri09/08/24 at 0056, For 1 occurrence [Order 1 End] [Order 2 Start] Name: Saline lock IV Signed Summary: Once, On Fri09/08/24 at 0056, For 1 occurrence [Order 2 End] [Order 3 Start] Name: sodium chloride (NS) 0.9 % flush 10 mL Signed Summary: 10 mL, Intravenou s, As needed, line care, Starting on Fri09/08/24 at 0055 [Order 3 End] Laurita Palomino amoxicillin -clavulanat e (Augmentin) 875-125 MG tablet amoxicillin -clavulanat e (Augmentin) 875-125 MG tablet 09-08 00:00: 00 09-15 23:59 :00 No 875mg Q12H Take 1 tablet by mouth in the morning and 1 tablet in the evening. Do all this for 7 days. Laurita Palomino Blood-Gluco se Sensor (GUARDIAN SENSOR 3) Lizzy 2023-06 00:00: 00 Yes Use as directed [facility] insulin aspart RAPID (NOVOLOG U-100 INSULIN ASPART) 100 unit/mL injection 2023-06 00:00: 00 Yes [id number] Use via insulin pump. Max dose 50 units daily. [facility] Blood-Gluco se Sensor (GUARDIAN 4 GLUCOSE SENSOR) Lizzy 03-12 00:00: 00 Yes Use as directed [facility] insulin aspart RAPID (NOVOLOG U-100 INSULIN ASPART) 100 unit/mL injection 03-12 00:00: 00 03-30 00:00 :00 No [id number] Use via insulin pump. Max dose 50 units daily. [facility] Blood-Gluco se Transmitter (DEXCOM G6 TRANSMITTER ) Lizzy 03-08 00:00: 00 Yes Use as directed [facility] Blood-Gluco se Sensor (DEXCOM G6 SENSOR) Lizzy 03-08 00:00: 00 Yes Use as directed [facility] insulin aspart RAPID (NOVOLOG U-100 INSULIN ASPART) 100 unit/mL injection 03-04 00:00: 00 03-12 00:00 :00 No Use via insulin pump. Max dose 50 units daily. [facility] insulin glargine,hu m.rec.anlog (LANTUS U-100 INSULIN SC) 01-15 09:33: 34 Yes 20U inject 20 Units under the skin. [facility] insulin lispro, human, (HUMALOG U-100 INSULIN) 100 unit/mL injection 01-15 09:33: 34 03-12 00:00 :00 No 5U inject 5 Units under the skin in the morning and 5 Units at noon and 5 Units in the evening. inject with meals. [facility] empaglifloz in 25 mg Tab tablet 12-22 00:00: 00 Yes 12.5mg Take 0.5 tablets by mouth in the morning. [facility] traMADoL 50 mg tablet 12-22 00:00: 00 Yes 100mg Take 2 tablets by mouth as needed. [facility] HYDROcodone -acetaminop hen 5-325 mg tablet 10-05 00:00: 00 Yes [id number] 1{tbl} Take 1 tablet by mouth every 6 (six) hours as needed for Pain (scale 7-10), Pain (scale 4-6) or Pain (scale 1-3). Indication s: acute pain [facility] ibuprofen 600 mg tablet 09-30 00:00: 00 Yes [id number] 600mg Take 1 tablet by mouth every 6 (six) hours as needed for Pain (scale 1-3) or Pain (scale 4-6). [facility] HYDROcodone -acetaminop hen 5-325 mg tablet 09-30 00:00: 00 10-05 00:00 :00 No [id number] 1{tbl} Take 1 tablet by mouth every 6 (six) hours as needed for Pain (scale 7-10), Pain (scale 4-6) or Pain (scale 1-3) for up to 7 days. Indication s: acute pain [facility] acetaminoph en-codeine 300-30 mg tablet 09-30 00:00: 00 09-30 00:00 :00 No [id number] 1{tbl} Take 1 tablet by mouth every 6 (six) hours as needed for Pain (scale 1-3), Pain (scale 4-6) or Pain (scale 7-10) for up to 7 days. Indication s: acute pain [facility] magnesium sulfate in water 2 gram/50 mL (4 %) infusion 2 g 09-02 23:30: 00 09-03 11:29 :00 No 2g 2 g, IV Piggyback, Administer over 60 Minutes, ONCE, 1 dose, On Fri09/02/22 at 1730, Routine [facility] methocarbam ol (Robaxin) 500 MG tablet 07-25 00:00: 00 08-15 05:59 :00 No [id number] 500mg Take 1 tablet (500 mg total) by mouth 1 (one) time each day if needed for muscle spasms for up to 20 days. [facility] naloxone (Narcan) 4 mg/0.1 mL nasal spray 07-18 00:00: 00 07-19 05:59 :00 No [id number] 4mg Administer 1 spray (4 mg total) into affected nostril(s) if needed for opioid reversal. May repeat every 2-3 minutes if needed, alternatin g nostrils, until medical assistance becomes available. [facility] methocarbam ol (Robaxin) 500 MG tablet 07-18 00:00: 00 07-26 05:59 :00 No [id number] 500mg Q.[id number] 3D Take 1 tablet (500 mg total) by mouth in the morning and 1 tablet (500 mg total) at noon and 1 tablet (500 mg total) in the evening. Do all this for 7 days. [facility] insulin glarginegilarec.anlog (LANTUS U-100 INSULIN SC) 12-25 14:36: 32 Yes 20U inject 20 Units under the skin. [facility] insulin lispro, human, (HUMALOG U-100 INSULIN) 100 unit/mL injection 12-25 14:36: 32 Yes 5U inject 5 Units under the skin 3 (three) times daily with meals. [facility] ondansetron (ZOFRAN ODT) 4 mg disintegrat ing tablet 12-25 00:00: 00 Yes [id number] 4mg Take 1 tablet by mouth every 8 (eight) hours as needed for Nausea and Vomiting (N/V). [facility] ondansetron 8 mg tablet 12-25 00:00: 00 Yes [id number] 8mg Take 1 tablet by mouth every 8 (eight) hours as needed for Nausea and Vomiting (N/V). [facility] gabapentin 300 mg capsule TAKE 1 CAPSULE BY MOUTH EVERY 8 HOURS FOR 7 DAYS. gabapentin 300 mg capsule TAKE 1 CAPSULE BY MOUTH EVERY 8 HOURS FOR 7 DAYS. No gabapentin 300 mg capsule TAKE 1 CAPSULE BY MOUTH EVERY 8 HOURS FOR 7 DAYS. [facility] methocarbam ol 750 mg tablet TAKE 1 TABLET BY MOUTH EVERY 6 HOURS FOR 7 DAYS. methocarbam ol 750 mg tablet TAKE 1 TABLET BY MOUTH EVERY 6 HOURS FOR 7 DAYS. No methocarba mol 750 mg tablet TAKE 1 TABLET BY MOUTH EVERY 6 HOURS FOR 7 DAYS. [facility] naproxen 500 mg tablet TAKE 1 TABLET BY MOUTH EVERY 12 HOURS FOR 7 DAYS naproxen 500 mg tablet TAKE 1 TABLET BY MOUTH EVERY 12 HOURS FOR 7 DAYS No naproxen 500 mg tablet TAKE 1 TABLET BY MOUTH EVERY 12 HOURS FOR 7 DAYS [facility] polyethylen e glycol 3350 17 gram/dose oral [...] [facility] gabapentin 300 mg capsule TAKE 1 CAPSULE BY MOUTH EVERY 8 HOURS FOR 7 DAYS. gabapentin 300 mg capsule TAKE 1 CAPSULE BY MOUTH EVERY 8 HOURS FOR 7 DAYS. No gabapentin 300 mg capsule TAKE 1 CAPSULE BY MOUTH EVERY 8 HOURS FOR 7 DAYS. [facility] methocarbam ol 750 mg tablet TAKE 1 TABLET BY MOUTH EVERY 6 HOURS FOR 7 DAYS. methocarbam ol 750 mg tablet TAKE 1 TABLET BY MOUTH EVERY 6 HOURS FOR 7 DAYS. No methocarba mol 750 mg tablet TAKE 1 TABLET BY MOUTH EVERY 6 HOURS FOR 7 DAYS. [facility] naproxen 500 mg tablet TAKE 1 TABLET BY MOUTH EVERY 12 HOURS FOR 7 DAYS naproxen 500 mg tablet TAKE 1 TABLET BY MOUTH EVERY 12 HOURS FOR 7 DAYS No naproxen 500 mg tablet TAKE 1 TABLET BY MOUTH EVERY 12 HOURS FOR 7 DAYS [facility] polyethylen e glycol 3350 17 gram/dose oral [...] [facility] gabapentin 300 mg capsule TAKE 1 CAPSULE BY MOUTH EVERY 8 HOURS FOR 7 DAYS. gabapentin 300 mg capsule TAKE 1 CAPSULE BY MOUTH EVERY 8 HOURS FOR 7 DAYS. No gabapentin 300 mg capsule TAKE 1 CAPSULE BY MOUTH EVERY 8 HOURS FOR 7 DAYS. [facility] hydrocodone 5 mg-acetamin ophen 325 mg tablet [...] [facility] methocarbam ol 750 mg tablet TAKE 1 TABLET BY MOUTH EVERY 6 HOURS FOR 7 DAYS. methocarbam ol 750 mg tablet TAKE 1 TABLET BY MOUTH EVERY 6 HOURS FOR 7 DAYS. No methocarba mol 750 mg tablet TAKE 1 TABLET BY MOUTH EVERY 6 HOURS FOR 7 DAYS. [facility] naproxen 500 mg tablet TAKE 1 TABLET BY MOUTH EVERY 12 HOURS FOR 7 DAYS naproxen 500 mg tablet TAKE 1 TABLET BY MOUTH EVERY 12 HOURS FOR 7 DAYS No naproxen 500 mg tablet TAKE 1 TABLET BY MOUTH EVERY 12 HOURS FOR 7 DAYS [facility] polyethylen e glycol 3350 17 gram/dose oral [...] [facility] Vital Signs Vital Name Observation Time Observation Value Comments Ivonne celestin Systolic blood pressure 2024-09-08 07:54:00 130 mm[Hg] [facility] Diastolic blood pressure 2024-09-08 07:54:00 92 mm[Hg] [facility] Heart rate 2024-09-08 07:54:00 112 /min [facility] 2024-09-08 07:54:00 37.06 Edna [facility] Respiratory rate 2024-09-08 07:54:00 18 /min [facility] Oxygen saturation in Arterial blood by Pulse oximetry 2024-09-08 07:54:00 99 /min [facility] Body height 2024-09-08 00:23:00 172.7 cm [facility] Body weight 2024-09-08 00:23:00 68.04 kg [facility] BMI 2024-09-08 00:23:00 22.81 kg/m2 [facility] Systolic blood pressure 2024-09-08 07:54:00 130 mm[Hg] [facility] Diastolic blood pressure 2024-09-08 07:54:00 92 mm[Hg] [facility] Heart rate 2024-09-08 07:54:00 112 /min [facility] Body temperature 2024-09-08 07:54:00 37.06 Edna [facility] Respiratory rate 2024-09-08 07:54:00 18 /min [facility] Oxygen saturation in Arterial blood by Pulse oximetry 2024-09-08 07:54:00 99 /min [facility] Body height 2024-09-08 00:23:00 172.7 cm Marv [facility] Body weight 2024-09-08 00:23:00 68.04 kg [facility] BMI 2024-09-08 00:23:00 22.81 kg/m2 Marv kathleen [facility] Systolic blood pressure 2024-03-12 15:11:00 98 mm[Hg] [facility] Diastolic blood pressure 2024-03-12 15:11:00 60 mm[Hg] [facility] Heart rate 2024-03-12 15:11:00 108 /min Unive [facility] Body height 2024-03-12 15:11:00 185.4 cm [facility] Body weight 2024-03-12 15:11:00 65.726 kg [facility] BMI 2024-03-12 15:11:00 19.12 kg/m2 [facility] Oxygen saturation in Arterial blood by Pulse oximetry 2024-03-12 15:11:00 96 /min [facility] Systolic blood pressure 2024-01-16 14:34:00 125 mm[Hg] [facility] Diastolic blood pressure 2024-01-16 14:34:00 83 mm[Hg] [facility] Heart rate 2024-01-16 14:34:00 82 /min [facility] Respiratory rate 2024-01-16 14:34:00 17 /min [facility] Body height 2024-01-16 14:34:00 185.4 cm Univ [facility] Body weight 2024-01-16 14:34:00 64.275 kg [facility] BMI 2024-01-16 14:34:00 18.70 kg/m2 [facility] Oxygen saturation in Arterial blood by Pulse oximetry 2024-01-16 14:34:00 100 /min [facility] Systolic blood pressure 2023-10-06 14:45:00 133 mm[Hg] [facility] Diastolic blood pressure 2023-10-06 14:45:00 87 mm[Hg] [facility] Heart rate 2023-10-06 14:45:00 99 /min Un[facility] Body temperature 2023-10-06 14:45:00 36.94 Edna [facility] Body height 2023-10-06 14:45:00 185.4 cm Univ [facility] Body weight 2023-10-06 14:45:00 69.854 kg [facility] BMI 2023-10-06 14:45:00 20.32 kg/m2 [facility] Systolic blood pressure 2023-10-01 20:37:00 164 mm[Hg] [facility] Diastolic blood pressure 2023-10-01 20:37:00 99 mm[Hg] [facility] Heart rate 2023-10-01 20:36:00 88 /min [facility] Body temperature 2023-10-01 20:36:00 37.11 Edna [facility] Respiratory rate 2023-10-01 20:36:00 20 /min [facility] Body height 2023-10-01 20:36:00 185.4 cm Univ [facility] Body weight 2023-10-01 20:36:00 69.945 kg [facility] BMI 2023-10-01 20:36:00 20.34 kg/m2 [facility] Oxygen saturation in Arterial blood by Pulse oximetry 2023-10-01 20:36:00 98 /min [facility] Systolic blood pressure 2022-09-02 20:04:00 140 mm[Hg] [facility] Diastolic blood pressure 2022-09-02 20:04:00 83 mm[Hg] [facility] Heart rate 2022-09-02 20:04:00 55 /min [facility] Body temperature 2022-09-02 20:04:00 36.56 Edna [facility] Respiratory rate 2022-09-02 20:04:00 18 /min [facility] Body weight 2022-09-02 20:04:00 63.504 kg [facility] Oxygen saturation in Arterial blood by Pulse oximetry 2022-09-02 20:04:00 99 /min [facility] Height 2022-08-14 00:00:00 73 [in_i] [facility] Body height 2022-08-07 18:54:00 185.4 cm [facility] Body weight 2022-08-07 18:54:00 70.308 [facility] BMI 2022-08-07 18:54:00 20.45 kg/m2 [facility] Procedures Procedure Date / Time Performed Performing Clinician Source UA WITH CULTURE IF INDICATED 2024-09-08 04:33:00 Jacob Lemus [facility] ABDOMEN PELVIS W IV CONTRAST 2024-09-08 01:27:00 Jacob Lemus [facility] Epi c COMPLETE BLOOD COUNT 2024-09-08 01:11:00 Gay Lemus [facility] Epic AUTOMATED DIFFERENTIAL 2024-09-08 01:11:00 Jamila Lemus eat [facility] Epic BASIC METABOLIC PANEL 2024-09-08 01:11:00 Vinny Lemus [facility] Epic HEPATIC FUNCTION PANEL 2024-09-08 01:11:00 Jamila Lemus marie [facility] Epic LIPASE LEVEL 2024-09-08 01:11:00 Jacob Lemus [facility] [place] [facility] COMPLETE BLOOD COUNT W/DIFF AND PLATELET 2024-09-08 01:11:00 Jacob Lemus [facility] Epi c POCT HEMOGLOBIN A1C TEST 2024-03-12 15:12:00 Ash Newby [facility] REFERRAL- REQUEST/RESPONSE 2023-12-03 16:29:41 Doctor Unassigned, [place] [facility] LIPASE 2022-09-02 21:29:00 Corey Santos U [facility] MAGNESIUM 2022-09-02 21:29:00 Corey Santos [facility] COMP. METABOLIC PANEL ([id number]) 2022-09-02 21:29:00 Corey Santos [facility] CBC WITH DIFF 2022-09-02 21:29:00 Corey Santos [facility] COVID-19 (ID NOW RAPID TESTING) 2022-09-02 21:29:00 Corey Santos [facility] CONSENT/REFUSAL FOR DIAGNOSIS AND TREATMENT 2022-09-02 19:47:27 Doctor Unassigned, [place] [facility] Oxygen Therapy - Patient Type: Adult; Device: Nasal Cannula; Rate in liters per minute: 2 Lpm; SpO2 Goals (select one): General: > or equal to 92%; Follow Respiratory Pathway: Yes [facility] Plan of Care Planned Activity Planned Date Details Comments Source Diagnostic Test Pending 2022-08-14 00:00:00 urinalysis, dipstick [code = urinalysis, dipstick] [facility] Encounters Start Date/Time End Date/Time Encounter Type Admission Type Attending [facility] Facility Care Department Encounter ID Source 2022-09-17 07:31:21 Outpatient [facility] [id number] [facility] 2022-09-16 15:36:55 Outpatient [facility] [id number] [facility] 2022-07-18 12:27:15 Outpatient [facility] [id number] [facility] 2022-07-17 15:48:48 Outpatient [facility] [id number] [facility] 2022-07-16 13:44:41 Outpatient [facility] [id number] [facility] 2022-07-09 10:37:11 Outpatient [facility] [id number] [facility] 2024-09-08 00:23:00 2024-09-08 08:00:00 Emergency Emergency JACOB LEMUS [facility] General Medicine [id number] [facility] 2024-09-08 00:23:00 2024-09-08 08:00:00 Emergency Jacob Lemus [facility] 1..840.114 350.1.13.70 [id number] Laurita malik [facility] 2023-12-03 00:00:00 2024-08-14 07:36:01 Orders Only Doctor Unassigned, [place] Doctor Unassigned, [place] [facility] [id number] 350.1.13.10 [id number] [id number] [facility] 2024-08-10 14:30:00 2024-08-10 14:30:00 Outpatient R ELLIOTT WAYNE [facility] [id number] [facility] 2024-08-03 15:00:00 2024-08-03 15:00:00 Outpatient R ELLIOTT WAYNE [facility] [id number] [facility] 2024-03-25 00:00:00 2024-03-30 15:28:17 Patient Secure Msg [facility] MIYA?[facility] [id number] 350.1.13.10 [id number] [id number] [facility] 2024-03-12 00:00:00 2024-03-12 15:02:17 [facility] 1..840.114 350.1.13.10 4.2.7.2.686 [id number] [facility] 2024-03-12 10:00:00 2024-03-12 11:00:30 Outpatient R KEYONNA ASH [facility] [id number] [facility] 2024-03-12 10:00:00 2024-03-12 11:00:30 [facility] 1..840.114 350.1.13.10 4.2.7.2.686 [id number] [facility] 2024-03-10 00:00:00 2024-03-10 15:02:19 [facility] [id number] 350.1.13.10 4.2.7.2.686 [id number] [facility] 2024-03-05 00:00:00 2024-03-08 09:32:19 [facility] [id number] 350.1.13.10 4.2.7.2.686 [id number] [facility] 2024-03-04 00:00:00 2024-03-04 15:00:07 Telephone Ash Newby [facility] MIYA?[facility] 1..840.114 350.1.13.10 4.2.7.2.686 [id number] [facility] 2024-03-03 00:00:00 2024-03-03 12:10:51 Telephone Ash Newby [facility] 1..840.114 350.1.13.10 4.2.7.2.686 [id number] [facility] 2024-02-27 13:30:00 2024-02-27 13:30:00 Outpatient R KEYONNA ASH [facility] [id number] [facility] 2024-02-24 00:00:00 2024-02-25 15:53:47 Telephone Ash Newby [facility] 1..840.114 350.1.13.10 4.2.7.2.686 [id number] [facility] 2024-01-16 09:00:00 2024-01-16 10:33:51 Outpatient R KEYONNA ASH [facility] [id number] [facility] 2024-01-16 09:00:00 2024-01-16 10:33:51 Office Visit Ash Newby [facility] 1.2.840.114 350.1.13.10 4.2.7.2.686 [id number] [facility] 2023-11-11 13:00:00 2023-11-11 13:00:00 Outpatient R WALLACE ROOT [facility] [id number] [facility] 2023-10-20 09:30:00 2023-10-20 09:30:00 Outpatient RAJAN PALMER CRAIG [facility] [id number] [facility] 2023-10-08 00:00:00 2023-10-08 00:00:00 Letter (Out) Campaigns, Generic Provider [facility] 1..840.114 350.1.13.10 4.2.7.2.686 [id number] [facility] 2023-10-06 09:00:00 2023-10-06 10:29:27 Outpatient WALLACE BENDER [facility] [id number] [facility] 2023-10-06 09:00:00 2023-10-06 10:29:27 Office Visit Wallace Root [facility] 1..840.114 350.1.13.10 4.2.7.2.686 [id number] [facility] 2023-10-01 15:20:00 2023-10-01 16:03:05 Urgent Care Cindy Neely Unknown, [facility] 1.2.840.114 350.1.13.10 4.2.7.2.686 [id number] [facility] 2023-10-01 15:20:00 2023-10-01 16:03:05 Outpatient CINDY RAJAN [facility] [id number] [facility] 2022-11-04 00:00:00 2022-11-04 00:00:00 Outpatient Hananel_A [facility] [id number] [facility] 2022-09-30 00:00:00 2022-09-30 00:00:00 Outpatient Hananel_A [facility] [id number] [facility] 2022 12:15:2022 12:15:00 Outpatient JACOB BARAKAT [facility] [id number] [facility] 2022 12:00:00 2022 12:00:00 Outpatient JOHN CATHERINE [facility] [id number] [facility] 2022 12:00:00 2022 12:00:00 Outpatient [facility] [id number] [facility] 2022-09-02 14:06:00 2022-09-02 17:23:00 Emergency X COREY SANTOS [facility] E[facility] [id number] [facility] 2022-09-02 14:06:00 2022-09-02 17:23:00 Emergency Dorothea Santossabra F [facility] 1.2.840.114 350.1.13.10 4.2.7.2.686 [id number] [facility] 2022-08-26 00:00:00 2022-08-26 00:00:00 Outpatient Hananel_A [facility] [id number] [facility] 2022-08-26 00:00:00 2022-08-26 00:00:00 Outpatient Hananel_A [facility] [id number] [facility] 2022-08-20 00:00:00 2022-08-20 00:00:00 Outpatient Hananel_A [facility] [id number] [facility] 2022-08-20 00:00:00 2022-08-20 00:00:00 Agustin Lauren MD: [id number], [place] [address] , Ph. [facility] [id number] [facility] 2022-08-15 12:15:00 2022-08-15 12:15:00 Outpatient ELISEO GOLDSTEIN [facility] [id number] [facility] 2022-08-14 00:00:00 2022-08-14 00:00:00 Outpatient Hananel_A [facility] [id number] [facility] 2022-08-14 00:00:00 2022-08-14 00:00:00 Outpatient Hananel_A [facility] [id number] [facility] 2022-08-14 00:00:00 2022-08-14 00:00:00 Agustin Lauren MD: [id number] [address] , Ph. [facility] [place] - [place] [id number] [facility] 2022-08-12 00:00:00 2022-08-12 00:00:00 Outpatient Hananel_A [facility] [id number] [facility] 2022-08-07 13:00:00 2022-08-07 13:26:34 Office Visit John Catherine [facility] [address] 1.2.840.114 350.1.13.58 9.2.7.2.686 [id number] [facility] 2022-08-07 13:15:00 2022-08-07 13:15:00 Office Visit JACOB BARAKAT [facility] [address] 1.2.840.114 350.1.13.58 9.2.7.2.686 [id number] [facility] 2022-08-07 13:00:00 2022-08-07 13:00:00 Outpatient [facility] [id number] [facility] 2022-07-18 12:30:00 2022-07-18 13:54:05 Office Visit Jenna Wilkerson [facility] [address] 1.2.840.114 350.1.13.58 9.2.7.2.686 [id number] [facility] 2022-07-18 12:15:00 2022-07-18 13:48:22 Office Visit Eliseo Goldstein [facility] [address] 1.2.840.114 350.1.13.58 9.2.7.2.686 [id number] [facility] 2022-07-18 12:45:00 2022-07-18 12:45:00 Outpatient [facility] [id number] [facility] 2022-07-10 00:00:00 2022-07-10 00:00:00 Outpatient Hananel_A [facility] [id number] [facility] 2022-07-10 00:00:00 2022-07-10 00:00:00 Outpatient Hananel_A [facility] [id number] [facility] 2022-07-05 00:00:00 2022-07-05 00:00:00 Outpatient Hananel_A [facility] [id number] [facility] 2022-07-03 13:15:00 2022-07-03 13:15:00 Outpatient JOHN CATHERINE [facility] [id number] [facility] 2022-07-01 10:00:00 2022-07-01 10:00:00 Outpatient ELISEO GOLDSTEIN [facility] [id number] [facility] Results Test Description Test Time Test Comments Results Result Co mments Source [facility]/[id number] 16:29:41 Ordered by an unspecified provider.[facility] CenterUrinalysis macro (dipstick) panel - [id number] 14:52:00* Test Item Value Reference Range Interpretation Comme nts leukocytes (test code = leukocytes) negative neg urobilinogen (test code = urobilinogen) 0.2 E.U./dL sm amt (.5-1mg/dL) protein (test code = protein) negative See_Comment [Automated Vertisheara ge] The system which generated this result transmitted reference range: <=150 mg/d. The reference range was not used to interpret this result as normal/abnormal. pH (test code = pH) 6.0 4.5-8 blood (test code = blood) negative See_Comment [Automated Vertisheara ge] The system which generated this result transmitted reference range: <=3 RBC. The reference range was not used to interpret this result as normal/abnormal. specific gravity (test code = specific gravity) 1.015 1.005-1.025 ketone (test code = ketone) trace none bilirubin (test code = bilirubin) negative neg glucose (test code = glucose) >=1000 See_Comment [Automated Vertisheara ge] The system which generated this result transmitted reference range: <=130 mg/d. The reference range was not used to interpret this result as normal/abnormal. color (test code = color) yellow yellow clarity (test code = clarity) clear clear or cloudy nitrite (test code = nitrite) negative neg [facility] Notes Date/Time Note Provider Source 2024-09-08 08:24:51 [facility] Suicide Severity Rating Scale (Screener/Recent Self-Report) Question Answer Date of Assessment Author 1. Wish to be (Past 1 Month) No 025 12:24 AM HAYLEYT Gerry Merida, YUE 2. Non-Specific Active Suici mesfin Thoughts (Past 1 Month) No 09/08/2024 12:24 AM HAYLEYT Cristian Merida, RN 6. Suicidal Behavior (Lifetime) No 12:24 AM HAYLEYT Gerry Merida, YUE [facility]psqvy8640-97-58 08:24:51Scheduled Orders Health Maintenance Due Date Last Done Comments Lipid Panel 1990 Annual Physical 1993 Diabetes: Foot Exam 2000 Diabetes: Retinopathy Screening 2000 Varicella Vaccines (1 of 2 - 13+ 2-dose series) 09/19/2003 DTaP/Tdap/Td Vaccines (1 - Tdap) 2009 Diabetes: Urine Protein Screening 2009 Hepatitis B Vaccines (1 of 3 - 19+ 3-dose series) 2009 Pneumococcal Vaccine: Pediatrics (0 to 5 Years) and At-Risk Patients (6 to 64 Years) (1 of 2 - PCV) 2009 Influenza Vaccine (#1) 2024 Diabetes: Hemoglobin A1C 06/11/2024 024, 12/25/2018 HIB Vaccines Aged Out No longer eligi ble based on patient's age to complete this topic HPV Vaccines Aged Out No longer eligi ble based on patient's age to complete this topic Hepatitis A Vaccines Aged Out No long er eligible based on patient's age to complete this topic IPV Vaccines Aged Out No longer eligi ble based on patient's age to complete this topic Meningococcal Vaccine Aged Out No amaury albina eligible based on patient's age to complete this topic Rotavirus Vaccines Aged Out No longer eligible based on patient's age to complete this topic [facility]woodPnkufvo8967-40-76 08:24:51 Diagnosis Generalized abdominal pain - Primary Abdominal pain, generalized Colitis Other and unspecified noninfectious gastroenteritis and colitis [facility] KingwoodObrweyz3298-46-48 08:24:51 [facility]woodMacpfah3910-90-70 00:19:00 History of Present Illness: Chief Complaint: Patient presents with Abdominal Pain Nausea Vomiting 33 year old male with PMHx of IDDM, neuropathy, psychiatric issues and currently being treated at [facility] after trying to hang self in a SI attempt, presents to the ED accompanied by caregiver for evaluation of abdominal pain onset today. Pain is constant, epigastric, nonradiating and moderate in severity. No known exacerbating or alleviatng factors reported. Reports associated sxs of nausea, vomiting and diarrhea. Denies any fever, chest pain and any other associated sxs. No other complaints were provided at this time. 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 No reported ETOH or recreational drug use Meds: aripiprazole, bactrim, gabapentin, ondansetron, promethazine, trazodone, olanzapine, insulin Patient History Medical History[1] Surgical History[2] Family History[3] Social History: Tobacco Use Smoking status: Every Day Smokeless tobacco: Not on file Substance Use Topics Alcohol use: Not on file Drug use: Not on file Review of Systems: Review of Systems Constitutional: Negative for chills and fever. HENT: Negative for ear pain and sore throat. Eyes: Negative for pain and visual disturbance. Respiratory: Negative for cough and shortness of breath. Cardiovascular: Negative for chest pain and palpitations. Gastrointestinal: Positive for abdominal pain, diarrhea, nausea and vomiting. Genitourinary: Negative for dysuria and hematuria. Musculoskeletal: Negative for arthralgias and back pain. Skin: Negative for color change and rash. Neurological: Negative for seizures and syncope. All other systems reviewed and are negative. Triage Vitals: BP: 128/72, Heart Rate: 60, Temp: 36.9 ?C (98.5 ?F), Resp: 18, SpO2: 100 %, Height: 172.7 cm (5' 8"), Weight: 68 kg (150 lb) Physical Exam: Vitals and nursing note reviewed. Constitutional: General: He is not in acute distress. Appearance: He is well-developed. HENT: Head: Normocephalic and atraumatic. Eyes: Conjunctiva/sclera: Conjunctivae normal. Cardiovascular: Rate and Rhythm: Normal rate and regular rhythm. Heart sounds: No murmur heard. Pulmonary: Effort: Pulmonary effort is normal. No respiratory distress. Breath sounds: Normal breath sounds. Abdominal: Palpations: Abdomen is soft. Tenderness: There is abdominal tenderness in the right upper quadrant and epigastric area. Musculoskeletal: General: No swelling. Cervical back: Neck supple. Skin: General: Skin is warm and dry. Capillary Refill: Capillary refill takes less than 2 seconds. Neurological: Mental Status: He is alert. Psychiatric: Mood and Affect: Mood normal. Procedures Performed: Procedures ED Course : Medical Decision Making 33 year old male with PMHx of IDDM, neuropathy, psychiatric issues and currently being treated at [facility] after trying to hang self in a SI attempt, presents to the ED accompanied by caregiver for evaluation of abdominal pain onset today. Pain is constant, epigastric, nonradiating and moderate in severity. No known exacerbating or alleviatng factors reported. Reports associated sxs of nausea, vomiting and diarrhea. Denies any fever, chest pain and any other associated sxs. No other complaints were provided at this time. Differential diagnosis includes but is not limited to: Bowel obstruction, Appendicitis, Perforated Bowel, Biliary Disease, Hepatic Disease, Gastritis, Gastroenteritis, Diarrhea, Infectious Colitis, Cystitis, Pyelonephritis, dka, hyperglycemia Labs, ct a/p, meds, ua My interpretation of patient results includes the following, CT shows some inflammation of the colon concerning for colitis, urine is negative for UTI however he does have glucose and ketones in the urine. His BMP shows a mildly elevated potassium to 5.0 and a glucose of 317, however he is getting IV fluids. His liver function tests are all within normal range his lipase is 52. His CBC does show a leukocytosis to 19.61 with a left shift, however he was not vomiting pretty profusely when he got here. Likely margination secondary to vomiting as a cause. Patient resting in bed in no acute distress. Patient has moderate risk for serious illness, but with improvement in their symptoms with ER treatment. Discussed the results of laboratory and radiology studies with patient. Advised patient of the plan for ongoing outpatient treatment, and close follow-up with their primary care physician or clinic. Patient acknowledges understanding of the results and is in agreement with the plan of care. All labs were reviewed individually, appropriate treatments were initiated based on these lab results then these lab results were then entered into the electronic medical record and used as part of the medical decision making process. The patient's plain films and/or CTs were reviewed by myself and the official read from radiology was entered into the medical record and uses part of the medical decision making. Had a conversation with the patient advising no need for hospitalization at this time or any surgical procedures. Patient will be sent home with prescription. Patient does not need further testing at this time. Amount and/or Complexity of Data Reviewed Labs: ordered. Decision-making details documented in ED Course. Radiology: ordered and independent interpretation performed. Decision-making details documented in ED Course. ECG/medicine tests: ordered and independent interpretation performed. Decision-making details documented in ED Course. Risk Prescription drug management. Parenteral controlled substances. Decision regarding hospitalization. ED Course: as of 09/08/24 0532 FriSep 08, [address] shows mildly hyperemic colon suspicious for colitis which is into him with his nausea vomiting diarrhea, however more in tune with a viral gastroenteritis versus colitis versus hyperglycemia. [HR] 0508 Patient's urine is negative for UTI however he does have glucose and ketones in the urine. [HR] ED Course: User Index [HR] Jacob Lemus MD Diagnoses as of 09/08/24 0532 Generalized abdominal pain Colitis Last Recorded Vitals: BP: 113/71, Heart Rate: 100, Temp: 36.9 ?C (98.5 ?F), Resp: 18, SpO2: 96 %, Height: 172.7 cm (5' 8"), Weight: 68 kg (150 lb) Medications Medications sodium chloride (NS) 0.9 % flush 10 mL (has no administration in time range) amoxicillin-clavulanate (Augmentin) 875-125 MG per tablet 875 mg (has no administration in time range) morphine PF injection 4 mg (4 mg Intravenous Given 09/08/24 0108) iohexol (OMNIPaque) 350 MG/ML injection 65 mL (65 mL Intravenous Given 09/08/24 0127) droperidol (Inapsine) injection 1.25 mg (1.25 mg Intravenous Given 09/08/24 0108) electrolyte solution pH 7.4 (Plasma-lyte/Normosol/Isolyte) infusion 1,000 mL (1,000 mL Intravenous Given 09/08/24 0410) Labs Ordered and Reviewed Labs Reviewed BASIC METABOLIC PANEL - Abnormal Result Value Glucose Lvl 317 (*) BUN 15 Creatinine Lvl 1.22 Sodium Lvl 136 Potassium Lvl 5.0 (*) Chloride Lvl 99 CO2 Lvl 20.8 Anion Gap 21.2 (*) Calcium Lvl 9.2 eGFR 80 UA WITH CULTURE IF INDICATED - Abnormal UA Color Light Yellow UA Turbidity Clear UA Spec Grav >=1.050 (*) UA pH 6.0 UA Protein Negative UA Glucose 500 (*) UA Ketones 80 (*) UA Bilirubin Negative UA Blood Negative UA Urobilinogen <=1.0 UA Nitrite Negative UA Leuk Esterase Negative UA Ascorbic Acid Negative UA Sq Epi Occasional UA WBC <1 UA RBC (Num) 1 COMPLETE BLOOD COUNT - Abnormal WBC 19.61 (*) RBC 4.60 NRBC % 0.0 Hgb 13.7 Hct 40.7 MCV 88.5 MCH 29.8 MCHC 33.7 RDW - SD 39.8 (*) Plt Count 284 MPV 10.7 AUTOMATED DIFFERENTIAL - Abnormal Segs % 89.0 (*) Lymphs % 6.2 (*) Monos % 4.0 (*) Eos % 0.0 (*) Basos % 0.2 Immature Grans % 0.6 Segs # 17.46 (*) Lymphs # 1.21 Monos # 0.78 Eos # 0.00 Basos # 0.04 Imm Grans # 0.12 (*) HEPATIC FUNCTION PANEL - Normal Protein 7.4 Albumin Lvl 4.5 Bilirubin Total 0.96 Bilirubin Direct 0.3 Bilirubin Indirect 0.7 Alkaline Phosphatase 101 AST 22 ALT 21 Globulin, Calc 2.9 Albumin/Globulin Ratio 1.55 LIPASE LEVEL - Normal Lipase Lvl 52 COMPLETE BLOOD COUNT W/DIFF AND PLATELET Narrative: The following orders were created for panel order CBC and differential. Procedure Abnormality Status --------- ------ Complete Blood Count[[id number]] Abnormal Final result Automated Differential[[id number]] Abnormal Final result Please view results for these tests on the individual orders. Radiology Interpretations CT ABDOMEN PELVIS W IV CONTRAST Final Result This patient's colon appears mildly hyperemic, concerning for colitis. Electronically signed by: David Martinez MD 09/08/2024 01:36 AM CDT RP Impression Final diagnoses: [R10.84] Generalized abdominal pain [K52.9] Colitis Prescriptions New Prescriptions AMOXICILLIN-CLAVULANATE (AUGMENTIN) 875-125 MG TABLET Take 1 tablet by mouth in the morning and 1 tablet in the evening. Do all this for 7 days. Disposition: Discharge Data Reviewed PROBLEMS ADDRESSED Patient presents with: [ ] 1 acute, uncomplicated illness or injury [ ] 2 or more self-limited or minor problems [ ] 1 stable, chronic illness [ ] 2 or more stable, chronic illnesses [ x ] 1 or more chronic illness with acute exacerbation or progression [ ] 2 or more chronic illnesses with acute exacerbation or progression [ x ] 1 new problem with uncertain prognosis [ ] 2 or more new problems with uncertain prognosis [ ] 1 acute illness with systemic symptoms [ ] 2 or more acute illnesses with systemic symptoms [ ] 1 acute complicated injury/illnesses [ ] 2 or more acute complicated injuries/illnesses [ ] 1 or more chronic illnesses with severe exacerbation or progression [ ] 1 acute or chronic illness or injury that represents a highly morbid condition with a possible threat to life or bodily function [ ] 2 or more illnessesthat represent highly morbid conditions with possible threat to life or bodily function DATA REVIEWED AND ANALYZED Category 1: Test, documents, or independent historians Additional history was required and obtained from: [ ] Family/Friends [ ] EMS/PD [ ] PCP/Specialist [ ] Other: Prior documentation reviewed: [ ] Prior ER [ ] H&P [ ] Clinic [ ] [facility] [ ] DC Summary [ ] Procedure [ ] External pharmacy records [ x ] Transfer papers [ ] PDMP [ ] Other: Prior test results reviewed: [ ] Serum labs [ ] Radiographs [ ] Cultures [ ] EKG [ ] Echo [ ] Other: [ x ] Tests were ordered and the results were independently reviewed by me [ ] Tests considered but not ordered: Category 2: Independent interpretation of tests [ x ] Tests were independently viewed and interpreted by me Category 3: Discussion of management with another professional [ ] [facility] [facility] [ ] Admitting service [ ] Radiology [ ] Behavioral Health [ ] Other: PATIENT MANAGEMENT (risk of complications and morbidity or mortality) [ x ] Prescription Drug Management [ ] Decision regarding minor surgery/procedure with identified patient or procedure risk factors [ ] Decision regarding major surgery/procedure with identified patient or procedure risk factors [ ] Social Determinates of health addressed: [ ] Poor access to care -- resources/referrals given [ ] Poor health literacy -- education provided [ ] Difficulty filling meds -- Good Rx cards and resources provided [ ] Non-Qatari -- medical logistics specialist used [ ] Other: [ x ] Considered / decision regarding hospitalization [ x ] Controlled parenteral medications [ ] Medications requiring intensive monitoring for toxicity or adverse effects were administered in ED or prior to ED, requiring same level of monitoring. [ ] Other: Raffy Dillard II is scribing for and in the presence of Dr. Jacob Lemus MD at 5:32 AM on 09/08/24. I personally performed the services described in documentation, reviewed and edited the documentation which was dictated to the scribe in my presence, and it accurately records my words and actions. Jacob Lemus MD Emergency Medicine [1] No past medical history on file. [2] Past Surgical History: Procedure Laterality Date ELBOW SURGERY Left 07/03/2022 OPEN REDUCTION INTERNAL FIXATION LEFT CAPITELLUM FEMUR SURGERY Left 07/01/2022 INTRAMEDULLARY NAILING LEFT FEMUR [3] No family history on file. Jacob Lemus MD 09/08/24 0532 [facility]woodKptilzw6135-26-31 13:22:[address] Vijay sanders switched to [facility] pharm, pt verbalized understanding, stated he is waiting on sooner appointment if we have one available. [facility]qd5148[facility]72-53 15:01:17 Clarified RX with pharmacy. Order processing. No further actions. [facility] Hill [facility] CenterMsivks3866-71-18 10:23:02 Form received, awaiting provider signature. Cindy Hill [facility] CenterSjmfoa0244-57-77 14:20:21 Received [place] outpatient pharmacy diabetic supplies rx, placed in providers box for review and signature. Alessandra MendozaAd[facility] County [facility] Medical CenterXvfrpg2363-88-04 09:31:17 Dexcom g6 transmitter and sensors sent to [facility] Pharmacy. RX was accepted. Cindy Hill [facility] CenterLdjool1248-23-54 15:50:28 Estephania Castorena is a 33 year old male Tasha from [employer] calling regarding pts transmitter and sensors asking for these orders to be sent over to [place] so pt can receive supplies states they do not handle these type of referrals with [place]. They need to be sent to [place] directly if any questions call back: [phone] extension [phone] David CristinaAdams County Regional Medical CenterTpttsw1555-91-54 14:56:51 Insulin vials requested for pump training. Novolog sent per provider Arvind Downs [facility] CenterKggjqc9212-04-81 12:10:40 Appointment scheduled for 03/12. Genet Arguelles RNUTMB - [id number] 09:54:42 Let PSS know if is ok by provider to OB patient Elio MartiCentral [facility] HospitalBucrkm7292-60-10 08:45:58 Estephania Castorena Jr. is a 33 year old male Pt is calling to request a sooner appt, Pt states, he was told to see Dr. Newby in two weeks, Pt denied to be scheduled next available appointment, Please advise (home) Anne Marie HouserAdams County Regional Medical CenterUxwodw1846-89-01 16:44:58 Provider asked nurse to reach out [employer] for assistance with supplies. [facility] on 02/19/24. Rep responded that the [place] originally shipped out his pump and that [...] have had pump training set up by [facility] weeks ago. I advised patient that provider had recently asked for assistance from [facility] as [place] has had some staff changes. Pt stated [...] that I would reach out to the rep to set up training, but that we do not know his availability so that it is usually easier for the patient to call. Pt was very upset with this as he states he was told that [facility] would set this up. I gave patient the reps number. Pt continued to voice anger with [facility]. Pt notified that I would forward his concerns to patient services. Pt disconnected phone call. [employer] rep, Lee Cleary called and given patient's info to set up training. [facility]
[2024-11-17] MEDS ORDERED: PROMETHAZINE INJ 25 MG/ML AMP IM ONE (19:21)
[2024-11-17] MEDS ORDERED: NA CHLORIDE 0.9% 1,000 ML ONE ×2 (19:21→20:09)
[2024-11-17 19:33] LABS: Absolute Basophils 0.1 K/uL (0-0.5); Absolute Lymphocytes (CBC) 1.2 K/uL (0.7-4.9); Absolute Monocytes 1.5 K/uL (0.1-1.3); Absolute Neutrophil 24.2 K/uL (1.8-8.0); Basophils % 0.2 % (0-1.3); Hemoglobin 16.3 g/dL (13.6-17.9); Lymphocytes % 4.5 % (15.3-44.8); MCH 30.1 pg (27.0-35.0); MCHC 33.9 g/dL (32.0-36.0); MCV 88.9 fL (80-100); MPV 10.4 fL (7.6-11.3); Monocytes % 5.6 % (3.3-12.3); Neutrophils % 89.7 % (41.7-73.7); Platelets 357 thou/uL (152-406); Red Cell Distribution Width 13.1 % (12.1-15.2)
[2024-11-17 19:52] LABS: Albumin 5.2 g/dL (3.4-5.0); Albumin/Globulin Ratio 1.2 (1.1-1.8); Anion Gap 26.5 mEq/L (5.0-15.0); Bilirubin Total 0.7 mg/dL (0.2-1.0); Globulin 4.2 g/dL (2.3-3.5); Potassium 4.5 mEq/L (3.5-5.1); Protein, Total 9.4 g/dL (6.4-8.2)
[2024-11-17 20:04] LABS: Band Neutrophils 3 % (0-1); Differential Total Cells Count 100; Lymphocytes 9 % (15-42); Monocytes 11 % (0-10); Segmented Neutrophils 77 % (40-80)
[2024-11-17 20:05] LABS: Blood Morphology Comment NOT SEEN (NOT SEEN); Platelet Estimate ADEQ
[2024-11-17] MEDS ORDERED: INSULIN REGULAR (HUMAN) 100 UNIT/ML ONE (20:08)
[2024-11-17] MEDS ORDERED: NA CHLORIDE 0.9% 100 ML ONE (20:09)
[2024-11-17] MEDS ORDERED: METOCLOPRAMIDE 10 MG/2mL INJ ONE (20:28)
[2024-11-17] MEDS ORDERED: DIPHENHYDRAMINE 50 MG/ML VIAL ONE (20:28)
[2024-11-17 20:55] LABS: PTT, Activated Partial Thromb 33.4 SECONDS (27.2-37.4); Protime INR 0.96
--- NOTE | 2024-11-17 21:11 | ER ---
Nurse's Notes [facility] Name: Curtis Castorena Jr Age: 34 yrs Sex: Male : 1990 Arrival Date: 11/17/2024 Time: 18:36 Bed 7 Private MD: Diagnosis: Diabetes mellitus due to underlying condition with ketoacidosis Presentation: 11/17 18:56 Chief complaint: Vomiting since this afternoon. Feels like DKA again. Home BGL 350. hb Coronavirus screen: At this time, the client does not indicate any symptoms associated with coronavirus-19. Ebola Screen: No symptoms or risks identified at this time. Initial Sepsis Screen: Does the patient meet any 2 criteria? No. Patient's initial sepsis screen is negative. Does the patient have a suspected source of infection? No. Patient's initial sepsis screen is negative. Risk Assessment: Do you want to hurt yourself or someone else? Patient reports no desire to harm self or others. Onset of symptoms was November 17, 2024. 18:56 Method Of Arrival: Ambulatory hb 18:56 Acuity: NAVEEN 2 hb Historical: - PMHx: 18:58 adhd; Bipolar disorder; depressive disorder; diabetes mellitus; herniated disc lumbar hb spine; PTSD; - PSHx: 18:58 hernia repair; Elbow; leg; Testicular torsion; hb - Immunization history:: Adult Immunizations up to date. - Infectious Disease History:: Denies. - Social history:: Smoking status: unknown. Screenin:45 [facility] ED Fall Risk Assessment (Adult) History of falling in the last 3 months, bm8 including since admission No falls in past 3 months (0 pts) Confusion or Disorientation No (0 pts) Intoxicated or Sedated No (0 pts) Impaired Gait No (0 pts) Mobility Assist Device Used No (0 pt) Altered Elimination No (0 pt) Score/Fall Risk Level 0 - 2 = Low Risk Oriented to surroundings, Maintained a safe environment, Educated pt \T\ family on fall prevention, incl call for assistance when getting out of bed, Assessed \T\ reinforced patient's understanding of fall precautions, Hourly rounding (assess needs \T\ fall precautionary measures) done, Used ambulatory aids as needed (educated on \T\ assisted with), Used gait belt as appropriate. Abuse screen: Denies threats or abuse. Nutritional screening: No deficits noted. Tuberculosis screening: No symptoms or risk factors identified. Assessment: 19:25 General: Appears uncomfortable, ill, Behavior is calm, cooperative. Neuro: Level of kd3 Consciousness is awake, alert, obeys commands, Oriented to person, place, time, situation. Cardiovascular: Patient's skin is warm and dry. Respiratory: Airway is patent Trachea midline Respiratory effort is even, unlabored, Respiratory pattern is regular, symmetrical. 20:42 Pain: Complains of pain in abdomen. Neuro: No deficits noted. Level of Consciousness is bm8 awake, alert, obeys commands, Oriented to person, place, time, situation, Appropriate for age. Cardiovascular: Denies chest pain, Capillary refill < 3 seconds in bilateral fingers Patient's skin is warm and dry. Respiratory: Airway is patent Respiratory effort is even, unlabored, Respiratory pattern is regular, symmetrical, Breath sounds are clear bilaterally. GI: Reports lower abdominal pain, upper abdominal pain, nausea, Pain is 6 out of 10 on a pain scale. vomiting. : No signs and/or symptoms were reported regarding the genitourinary system. EENT: No signs and/or symptoms were reported regarding the EENT system. Derm: No signs and/or symptoms reported regarding the dermatologic system. Musculoskeletal: No signs and/or symptoms reported regarding the musculoskeletal system. 22:45 Reassessment: Patient appears in no apparent distress at this time. No changes from bm8 previously documented assessment. Patient and/or family updated on plan of care and expected duration. Pain level reassessed. Patient is alert, oriented x 3, equal unlabored respirations, skin warm/dry/pink. 11/18 00:02 Reassessment: Patient appears in no apparent distress at this time. Patient and/or bm8 family updated on plan of care and expected duration. Pain level reassessed. Patient is alert, oriented x 3, equal unlabored respirations, skin warm/dry/pink. Vital Signs: 11/17 18:56 BP 143 / 101; Pulse 94; Resp 18; Temp 97.9; Pulse Ox 100% on R/A; Pain 8/10; hb 20:42 BP 141 / 92; Pulse 64; Resp 16; Temp 98; Pulse Ox 99% ; Pain 6/10; bm8 22:45 BP 122 / 70; Pulse 65; Resp 17; Temp 98; Pulse Ox 97% ; Pain 7/10; bm8 23:43 Weight 66.68 kg; bm8 11/18 00:02 BP 125 / 76; Pulse 75; Resp 19; Temp 98.3; Pulse Ox 99% ; Pain 5/10; bm8 11/17 18:56 Pain Scale: Adult hb 20:42 Pain Scale: Adult bm8 22:45 Pain Scale: Adult bm8 11/18 00:02 Pain Scale: Adult bm8 [place] Score: 11/17 20:42 Eye Response: spontaneous(4). Motor Response: obeys commands(6). Verbal Response: bm8 oriented(5). Total: 15. 22:45 Eye Response: spontaneous(4). Motor Response: obeys commands(6). Verbal Response: bm8 oriented(5). Total: 15. 11/18 00:02 Eye Response: spontaneous(4). Motor Response: obeys commands(6). Verbal Response: bm8 oriented(5). Total: 15. ED Course: 11/17 18:38 Patient arrived in ED. im 18:40 Porsche Rosa FNP-C is PHCP. kb 18:40 Oswald Benson MD is Attending Physician. kb 18:58 Triage completed. hb 19:09 Gracie Sy, RN is Primary Nurse. kd3 19:24 Inserted saline lock: 22 gauge in right forearm, using aseptic technique. Blood kd3 collected. Flushed with 10 mL NS. 19:25 Initial lab(s) drawn, by me, sent to lab. kd3 21:09 Prince Powers MD is Hospitalizing Provider. kb 22:45 No provider procedures requiring assistance completed. Patient admitted, IV remains in bm8 place. 22:45 Patient has correct armband on for positive identification. Bed in low position. Call bm8 light in reach. Side rails up X 1. Adult w/ patient. Provided Education on: need for admission. Client placed on continuous cardiac and pulse oximetry monitoring. NIBP monitoring applied. Pulse ox on. NIBP on. Door closed. Noise minimized. Warm blanket given. Pillow given. Verbal reassurance given. Head of bed elevated. 11/18 00:04 Arm band placed on right wrist. bm8 Administered Medications: 11/17 18:55 CANCELLED (Physician Discretion): Ondansetron Oral Disintegrating Tablet 4 mg PO once kb 19:29 Drug: NS 0.9% IV 1000 ml IV at 1 bolus Per protocol; to be given as a bolus over 60 kd3 minutes Route: IV; Rate: 1 bolus; Site: right antecubital; 22:44 Follow up: Response: No adverse reaction; IV Status: Completed infusion bm8 19:34 CANCELLED (given ): [id number] mg IM once kd3 19:35 Drug: Promethazine IM 25 mg IM once {Note: Given IV Right forearm .} Route: IM; Site: kd3 Other; 22:44 Follow up: Response: No adverse reaction bm8 20:39 Drug: diphenhydrAMINE IVP 12.5 mg IVP once Route: IVP; Site: right forearm; bm8 22:45 Follow up: Response: No adverse reaction bm8 20:39 Drug: metoCLOPramide IVP 10 mg IVP once; over 1 to 2 minutes Route: IVP; Site: right bm8 forearm; 22:45 Follow up: Response: No adverse reaction bm8 20:40 Drug: NS 0.9% IV 1000 ml IV at 1000 ml once; to be given as a bolus over 60 minutes bm8 Route: IV; Rate: 1000 ml; Site: right forearm; 22:45 Follow up: Response: No adverse reaction; IV Status: Completed infusion bm8 20:41 Drug: Insulin Drip - (Insulin Regular Human IVP 100 units, NS 0.9% IV 100 ml) IV at bm8 calculated rate continuous; Standard concentration 1unit/ml; Dose for DKA is 0.1 units/kg/hr {Co-Signature: kd3 (Gracie Sy RN).} Route: IV; Rate: calculated rate; Site: right forearm; 21:35 Follow up: titrated Medication to 3.5 units per/hr per DKA protocol. bm8 22:44 Follow up: titrtated to 1.75 units/ hr per DKA protocol. for BS 162 bm8 11/18 00:03 Follow up: Response: No adverse reaction; IV Status: Infusion continued upon admission bm8 Medication: 11/17 22:45 VIS not applicable for this client. bm8 Intake: Outcome: 21:10 Decision to Hospitalize by Provider. kb 11/18 00:02 Admitted to ICU accompanied by nurse, via wheelchair, room icu 5, with chart, Report bm8 called to dolores davis Condition: stable Instructed on the need for admit, Demonstrated understanding of instructions, follow-up care, medications, 00:08 Patient left the ED. bm8 Signatures: Porsche Rosa, GAMING MANAGER-C GAMING MANAGER-CkGinna Scott RN RN Gracie Sy RN RN kd3 Gabrielle Calero Brad, RN RN bm8 Gracie Sy RN kd3 Corrections: (The following items were deleted from the chart) 11/17 19:35 19:35 Promethazine IM 25 mg IM in Other; Given IV Right A/C kd3 kd3
--- NOTE | 2024-11-17 21:11 | EDPHYS ---
Physician Documentation [facility] Name: Curtis Castorena Jr Age: 34 yrs Sex: Male : 1990 Arrival Date: 11/17/2024 Time: 18:36 Bed 7 Private MD: ED Physician Oswald Benson HPI: 11/17 18:51 This 34 yrs old Male presents to ER via Unassigned with complaints of DKA. kb 18:51 Pt is a 34 year old male who presents for "DKA." States he has been in it before and kb this feels the same. Reports BGL greater than 350 even after insulin. Reports vomiting, inability to tolerate po. Reports bodyaches. Symptoms began this morning. . Historical: - PMHx: 18:58 adhd; Bipolar disorder; depressive disorder; diabetes mellitus; herniated disc lumbar hb spine; PTSD; - PSHx: 18:58 hernia repair; Elbow; leg; Testicular torsion; hb - Immunization history:: Adult Immunizations up to date. - Infectious Disease History:: Denies. - Social history:: Smoking status: unknown. ROS: 18:52 Constitutional: As per HPI kb Exam: 18:52 Constitutional: This is a well developed, well nourished patient who is awake, alert, kb and in no acute distress. Head/Face: Normocephalic, atraumatic. ENT: Moist Mucous membranes Cardiovascular: Regular rate Respiratory: Respirations even and unlabored. No increased work of breathing. Talking in full sentences Skin: Warm, dry with normal turgor. Normal color. MS/ Extremity: Pulses equal, no cyanosis. Neurovascular intact. Full, normal range of motion. Neuro: Awake and alert, GCS 15, oriented to person, place, time, and situation. 19:42 ECG was reviewed by the Attending Physician. kb Vital Signs: 18:56 BP 143 / 101; Pulse 94; Resp 18; Temp 97.9; Pulse Ox 100% on R/A; Pain 8/10; hb 20:42 BP 141 / 92; Pulse 64; Resp 16; Temp 98; Pulse Ox 99% ; Pain 6/10; bm8 22:45 BP 122 / 70; Pulse 65; Resp 17; Temp 98; Pulse Ox 97% ; Pain 7/10; bm8 23:43 Weight 66.68 kg; bm8 11/18 00:02 BP 125 / 76; Pulse 75; Resp 19; Temp 98.3; Pulse Ox 99% ; Pain 5/10; bm8 11/17 18:56 Pain Scale: Adult hb 20:42 Pain Scale: Adult bm8 22:45 Pain Scale: Adult bm8 11/18 00:02 Pain Scale: Adult bm8 [place] Coma Score: 11/17 20:42 Eye Response: spontaneous(4). Motor Response: obeys commands(6). Verbal Response: bm8 oriented(5). Total: 15. 22:45 Eye Response: spontaneous(4). Motor Response: obeys commands(6). Verbal Response: bm8 oriented(5). Total: 15. 11/18 00:02 Eye Response: spontaneous(4). Motor Response: obeys commands(6). Verbal Response: bm8 oriented(5). Total: 15. MDM: 11/17 18:40 Medical Screening Exam initiated kb 21:08 Differential diagnosis: Hyperglycemia, DKA, abnormal electrolytes, dehydration. Data kb reviewed: vital signs, nurses notes. Consideration of Admission/Observation Patient was admitted/placed on observation. Escalation of care including admission/observation considered. Management of patient was discussed with the following: Hospitalist: Dr Cotton accepts pt for admission. Historians other than the Patient: Spouse/Significant Other: spouse. Counseling: I had a detailed discussion with the patient and/or guardian regarding the historical points, exam findings, and any diagnostic results supporting the discharge/admit diagnosis, lab results, the need for further work-up and treatment in the hospital. 11/17 18:53 Order name: CBC with Diff; Complete Time: 20:37 kb 11/17 18:53 Order name: CMP; Complete Time: 19:58 kb 11/17 18:53 Order name: UA Rfx Phan Cult if indicated; Complete Time: 23:05 kb 11/17 19:44 Order name: Manual Differential; Complete Time: 20:37 EDMS 11/17 20:00 Order name: Blood Culture Adult (2) kb 11/17 20:00 Order name: Lactate w/ 2H reflex if indic.; Complete Time: 21:08 kb 11/17 20:00 Order name: Protime (+inr); Complete Time: 21:02 kb 11/17 20:00 Order name: Ptt, Activated; Complete Time: 21:02 kb 11/17 20:53 Order name: Magnesium EDMS 11/17 20:53 Order name: Phosphorus EDMS 11/17 20:53 Order name: Basic Metabolic Panel EDMS 11/17 20:53 Order name: Basic Metabolic Panel EDMS 11/17 20:53 Order name: Basic Metabolic Panel EDMS 11/17 20:53 Order name: Basic Metabolic Panel EDMS 11/17 20:53 Order name: CBC with Automated Diff EDMS 11/17 20:53 Order name: CBC with Automated Diff EDMS 11/17 20:53 Order name: CBC with Automated Diff EDMS 11/17 20:53 Order name: CBC with Automated Diff EDMS 11/17 21:49 Order name: Glucose, Ancillary Testing; Complete Time: 21:52 EDMS 11/17 22:49 Order name: Glucose, Ancillary Testing; Complete Time: 23:05 EDMS 11/17 23:52 Order name: Glucose, Ancillary Testing EDMS 11/17 18:53 Order name: EKG; Complete Time: 18:54 kb 11/17 18:53 Order name: IV Saline Lock; Complete Time: 19:24 kb 11/17 18:53 Order name: Labs collected and sent; Complete Time: 19:24 kb 11/17 18:53 Order name: EKG - Nurse/Tech; Complete Time: 19:41 kb 11/17 20:00 Order name: O2 Per Protocol; Complete Time: 20:40 kb 11/17 20:00 Order name: O2 Sat Monitoring; Complete Time: 20:40 kb 11/17 20:00 Order name: Vital Signs; Complete Time: 20:40 kb EC:42 Rate is 61 beats/min. Rhythm is regular. QRS [place] is Normal. NE interval is normal at kb 118 msec. QRS interval is normal at 98 msec. QT interval is normal at 408 msec. Administered Medications: 18:55 CANCELLED (Physician Discretion): Ondansetron Oral Disintegrating Tablet 4 mg PO once kb 19:29 Drug: NS 0.9% IV 1000 ml IV at 1 bolus Per protocol; to be given as a bolus over 60 kd3 minutes Route: IV; Rate: 1 bolus; Site: right antecubital; 22:44 Follow up: Response: No adverse reaction; IV Status: Completed infusion bm8 19:34 CANCELLED (given ): [id number] mg IM once kd3 19:35 Drug: Promethazine IM 25 mg IM once {Note: Given IV Right forearm .} Route: IM; Site: kd3 Other; 22:44 Follow up: Response: No adverse reaction bm8 20:39 Drug: diphenhydrAMINE IVP 12.5 mg IVP once Route: IVP; Site: right forearm; bm8 22:45 Follow up: Response: No adverse reaction bm8 20:39 Drug: metoCLOPramide IVP 10 mg IVP once; over 1 to 2 minutes Route: IVP; Site: right bm8 forearm; 22:45 Follow up: Response: No adverse reaction bm8 20:40 Drug: NS 0.9% IV 1000 ml IV at 1000 ml once; to be given as a bolus over 60 minutes bm8 Route: IV; Rate: 1000 ml; Site: right forearm; 22:45 Follow up: Response: No adverse reaction; IV Status: Completed infusion bm8 20:41 Drug: Insulin Drip - (Insulin Regular Human IVP 100 units, NS 0.9% IV 100 ml) IV at bm8 calculated rate continuous; Standard concentration 1unit/ml; Dose for DKA is 0.1 units/kg/hr {Co-Signature: kd3 (Gracie Sy RN).} Route: IV; Rate: calculated rate; Site: right forearm; 21:35 Follow up: titrated Medication to 3.5 units per/hr per DKA protocol. bm8 22:44 Follow up: titrtated to 1.75 units/ hr per DKA protocol. for BS 162 bm8 11/18 00:03 Follow up: Response: No adverse reaction; IV Status: Infusion continued upon admission bm8 Disposition Summary: 11/17/24 21:10 Hospitalization Ordered Notes: Hospitalization Status: Inpatient Admission kb Provider: Prince barbie Powers Location: Intensive Care Unit kb Condition: Stable kb Problem: new kb Symptoms: are unchanged kb Bed/Room Type: Standard Room Assignment: 5-(11/17/24 23:55) kl Diagnosis - Diabetes mellitus due to underlying condition with ketoacidosis kb Forms: - Medication Reconciliation Form kb - SBAR form kb - Leadership Thank You Letter kb Critical care time excluding procedures: 11/17 21:09 Critical care time: Bedside Care: 11 minutes, Consultation: 10 minutes, Family kb Intervention: 10 minutes. Total time: 31 minutes Addendum: 11/19/2024 02:20 Co-signature as Attending Physician, Oswald Benson MD I reviewed the patient's care r t provided by the Advanced Practice Provider and agree with the diagnosis and treatment plan. Signatures: Dispatcher [employer] EDPorsche Lyon, BLUE LEATHER SETTER-C BLUE LEATHER SETTER-Ckb Chelsie Goldman, RN RN kl Ginna Hu, RN YUE Gracie Sy, RN YUE kd3 Oswald Benson MD MD rt Gonzalo Elder RN YUE bm8 Gracie Sy RN kd3 Corrections: (The following items were deleted from the chart) 11/17 18:55 18:53 Ondansetron Oral Disintegrating Tablet Oral Disintegrating Tablet 4 mg PO once kb ordered. kb 19:34 18:56 Promethazine IM 25 mg IM once ordered. barbie kd3 20:37 20:37 BLOOD CULTURE*+BA.LAB.BRZ ordered. EDMS EDMS 20:37 20:37 LACTATE+C.LAB.BRZ ordered. EDMS EDMS 20:37 20:37 PROTIME (+INR)+COAG.LAB.BRZ ordered. EDMS EDMS 20:37 20:37 PTT, ACTIVATED+COAG.LAB.BRZ ordered. EDMS EDMS 20:40 20:00 Cardiac monitoring ordered. barbie bm8 23:55 21:10 barbie jacob
[2024-11-17] MEDS ORDERED: PROMETHAZINE INJ 25 MG/ML AMP IV PRN (21:14)
--- NOTE | 2024-11-17 21:14 | P.HP ---
Certification for Inpatient Patient admitted to: Inpatient With expected LOS: >2 Midnights Practitioner: I am a practitioner with admitting privileges, knowledge of patient current condition, hospital course, and medical plan of care. Services: Services provided to patient in accordance with Admission requirements found in Title 42 Section 412.3 of the Code of Federal Regulations Patient History Date of Service: 11/17/24 Reason for admission: DKA History of Present Illness: Patient is a 34-year-old male with a past medical history of type 1 diabetes mellitus currently on insulin pump. He presented to the ER complaining of intractable nausea and vomiting ongoing for the past week. Patient states that his insulin pump stop malfunctioning approximately 1 week ago. He tried to substitute his regimen with NovoLog, no long-acting insulin. He became increasingly symptomatic. He arrived in the ER hypovolemic. During my evaluation, patient was having coffee-ground emesis. As per at bedside, he did not have nonbloody emesis until now. He is being admitted to ICU for DKA. Physical Examination - Physical Exam General: Acute distress HEENT: Atraumatic, Normocephalic Cardiovascular: No edema, Regular rate/rhythm, Normal S1 S2, Other (Tachycardic) Neurological: Normal speech - Studies Laboratory Data (last 24 hrs) 11/17/24 11/17/24 11/17/24 20:05 19:27 19:27 WBC 27.00 H Hgb 16.3 Hct 48.0 Plt Count 357 PT 11.0 INR 0.96 APTT 33.4 Sodium 133 L Potassium 4.5 BUN 19 H Creatinine 1.58 H Glucose 320 H Total Bilirubin 0.7 AST 14 L ALT 32 Alkaline Phosphatase 164 H Assessment and Plan - Problems (Diagnosis) (1) DKA, type 1 Current Visit: Yes Status: Acute - Plan Assessment This is a 34-year-old male with type 1 diabetes mellitus currently managed with insulin pump. He is being admitted for DKA after presented with intractable nausea vomiting which led up progressing to coffee-ground emesis. Patient insulin pump started malfunctioning roughly 1 week ago. He was on NovoLog in the interval period. Presents with a WBC of 27. Patient is actively vomiting coffee-ground emesis. DKA Coffee-ground emesis, suspecting upper GI bleeding Leukocytosis Plan: Will admit to the ICU Aggressive volume repletion DKA protocol BMP every 4 hours, blood glucose hourly Zosyn for empiric coverage. High risk for aspiration PPI for GI prophylaxis GI consult - Advance Directives Does patient have a Living Will: No Does patient have a Durable POA for Healthcare: No
[2024-11-17] MEDS ORDERED: SODIUM CHLORIDE 0.9% 10ML INJ IV PRN (21:15)
[2024-11-17] MEDS ORDERED: ONDANSETRON 4 MG/2 ML VIAL ONE (22:04)
[2024-11-17 22:49] LABS: Specific Gravity 1.027 (1.005-1.030); Sqamous Epithelial <5 /HPF (None Seen); Urine Bacteria None Seen /HPF (<20); Urine Bilirubin NEGATIVE (Negative); Urine Blood Trace (Negative); Urine Clarity Clear (Clear); Urine Color Light-Yellow (Yellow); Urine Culture Reflex Order NOT NEEDED; Urine Glucose 4+ (Over) (Negative); Urine Ketones 4+ (Over) (Negative); Urine Microscopic Reflex YN ORDER UMIC; Urine Nitrite NEGATIVE (Negative); Urine Protein 1+ (Negative); Urine RBC <5 /HPF (None Seen); Urine Urobilinogen Normal (Normal); Urine WBC <5 /HPF (<5); Urine pH 5.5 (5.0-7.0)
[2024-11-18] MEDS: INSULIN REGULAR, HUMAN 100 UNIT in NA CHLORIDE 0.9% 100 ML IV SCH (00:20)
[2024-11-18] MEDS ORDERED: D50W 25 GM/50 ML SYRINGE IV PRN (00:46)
[2024-11-18] MEDS ORDERED: GLUCAGON 1 MG/VIAL IM PRN (00:46)
[2024-11-18] MEDS: D5 0.45 NS 1,000 ML IV SCH (00:55)
[2024-11-18 01:00] VITALS: O2SAT 99
[2024-11-18] MEDS: NACHLORIDE 0.45% 1,000 ML IV SCH (01:00)
[2024-11-18] MEDS: NA CHLORIDE 0.9% 1,000 ML IV SCH (01:03)
[2024-11-18] MEDS: PANTOPRAZOLE 40 MG INJ IVP SCH (01:20)
[2024-11-18 01:30] VITALS: BMI 18.8
[2024-11-18] MEDS: HYDROMORPHONE HCL 1 MG/ML INJ IV PRN (01:33)
[2024-11-18 01:44] LABS: Anion Gap 24.4 mEq/L (5.0-15.0); Magnesium 1.7 mg/dL (1.6-2.4); Phosphorus 3.7 mg/dL (2.5-4.9); Potassium 4.4 mEq/L (3.5-5.1)
[2024-11-18] MEDS: NA CHLORIDE 0.9% IM PRN (02:11)
[2024-11-18] MEDS: PROMETHAZINE IM PRN (02:11)
[2024-11-18] MEDS: PIPER TAZO 3.375 GM in NA CHLORIDE 0.9% 100 ML IV SCH (03:37)
[2024-11-18] MEDS: ONDANSETRON 4 MG/2 ML VIAL IV PRN (05:02)
[2024-11-18 05:31] LABS: Absolute Basophils 0.1 K/uL (0-0.5); Absolute Lymphocytes (CBC) 2.3 K/uL (0.7-4.9); Absolute Monocytes 1.3 K/uL (0.1-1.3); Absolute Neutrophil 22.7 K/uL (1.8-8.0); Basophils % 0.3 % (0-1.3); Hematocrit 44.5 % (39.6-49.0); Hemoglobin 15.1 g/dL (13.6-17.9); Lymphocytes % 8.7 % (15.3-44.8); MCH 30.2 pg (27.0-35.0); MPV 10.4 fL (7.6-11.3); Monocytes % 4.9 % (3.3-12.3); Neutrophils % 86.1 % (41.7-73.7); Platelets 333 thou/uL (152-406); Red Cell Distribution Width 13.3 % (12.1-15.2)
[2024-11-18 06:40] LABS: Magnesium 1.8 mg/dL (1.6-2.4)
--- NOTE | 2024-11-18 06:58 | P.PN ---
Date of Service: 11/18/24 Subjective: Coffee ground emesis started yesterday per family (described as dark and red/bloody specks) Abdominal pain and nausea/vomiting continues ~same nothing worse per patient States hes been off his insulin pump for ~1-2 week as he ran out of his insulin pump supplies and waiting on [place] for more reports recent hospitalization ~1.5-2 months ago and "during that time developed abdominal pain and found to have colitis" patient became upset when asked the reason for hospitalization, stating "it's none of your business, and has nothing to do with this issue" Physical Exam: GEN: Alert, oriented, agitated / angry CV: Regular rate and rhythm, no edema Pulm: Nonlabored respirations on room air, clear bilaterally ABD: soft, mild diffuse tenderness, nondistended Neuro: Normal speech, moves all extremities without issue Problem List: DKA IDDM1 on insulin pump Coffee-Ground Emesis LACY, prerenal Chronic back pain Hx Anxiety/Depression/PTSD Hx Colitis DKA IDDM1 on insulin pump Coffee-Ground Emesis on admission, presents with nausea/vomiting associated with body aches, inability to tolerate PO intake States hes been off his insulin pump for ~1-2 week as he ran out of his insulin pump supplies. Patient tried to substitute his normal insulin regimen with NovoLog but became more symptomatic Coffee ground emesis only started day of admission. Denied prior hx of Bleeding. Was At [facility] in August 2024 with Nausea/Vomiting/Abd pain. Had a CT at the time that showed mildly hyperemic colon suspicious for colitis. Started on insulin drip in ED and admitted to ICU Serial BMP until labs more stable Continue insulin drip, IVF continue empiric IV zosyn (11/18-) Follow blood cultures IV protonix BID GI consulted suspect will need EGD NPO due to DKA and hematemesis explained to patient risk of bleeding, increased acid production, worsening dka if taking PO too early. pt upset, continues to drink water PRN phenergan, zofran LACY, prerenal prerenal, in setting of dka; vomiting Continue to monitor renal function Monitor and replete electrolytes as needed On insulin drip, IVF Serial BMP Chronic back pain Hx Anxiety/Depression/PTSD confirm home meds, restart as appropriate VTE: DC lovenox given hematemesis GI: IV protonix BID Code: Full Dispo: Home, ~2 days Pending DKA resolves, N/V improve, tolerating diet without issues Time Spent Managing Pts Care (In Minutes): 55
[2024-11-18] MEDS: PROMETHAZINE IV PRN (08:07)
[2024-11-18] MEDS: NA CHLORIDE 0.9% IV PRN (08:07)
[2024-11-18] MEDS ORDERED: ENOXAPARIN 40 MG/0.4 ML SQ SCH (09:00)
[2024-11-18 10:12] LABS: Anion Gap 17.3 mEq/L (5.0-15.0); Potassium 4.3 mEq/L (3.5-5.1)
[2024-11-18 18:27] LABS: Anion Gap 15.7 mEq/L (5.0-15.0); Potassium 3.7 mEq/L (3.5-5.1)
[2024-11-19 05:27] LABS: Absolute Monocytes 1.6 K/uL (0.1-1.3); Absolute Neutrophil 14.1 K/uL (1.8-8.0); Basophils % 0.2 % (0-1.3); Eosinophils % 0.1 % (0-4.4); Hematocrit 38.6 % (39.6-49.0); Hemoglobin 13.4 g/dL (13.6-17.9); MCH 30.5 pg (27.0-35.0); MCHC 34.7 g/dL (32.0-36.0); MCV 87.9 fL (80-100); MPV 10.2 fL (7.6-11.3); Monocytes % 8.7 % (3.3-12.3); Nucleated Red Blood Cells % 0.1 % (0-0); Platelets 262 thou/uL (152-406); RBC Red Blood Cell Count 4.39 M/uL (4.33-5.43); Red Cell Distribution Width 13.3 % (12.1-15.2)
[2024-11-19 05:38] LABS: Anion Gap 8.3 mEq/L (5.0-15.0); Magnesium 1.7 mg/dL (1.6-2.4); Phosphorus 2.7 mg/dL (2.5-4.9); Potassium 3.3 mEq/L (3.5-5.1)
[2024-11-19] MEDS: LORazepam 2 MG/ML VIAL IV ONE (05:41)
--- NOTE | 2024-11-19 08:10 | P.PN ---
Date of Service: 11/19/24 Subjective: 1 episode of nonbloody emesis overnight reported yellowish in color continues with cramping abdominal pain agitated, noncompliant with NPO order overnight. Drank some liquids overnight Physical Exam: GEN: Alert, oriented, agitated / angry CV: Regular rate and rhythm, no edema Pulm: Nonlabored respirations on room air, clear bilaterally ABD: soft, mild diffuse tenderness, nondistended Neuro: Normal speech, moves all extremities without issue Problem List: DKA IDDM1 on insulin pump Coffee-Ground Emesis LACY, prerenal Chronic back pain Hx Anxiety/Depression/PTSD Hx Colitis DKA IDDM1 on insulin pump Coffee-Ground Emesis on admission, presents with nausea/vomiting associated with body aches, inability to tolerate PO intake States hes been off his insulin pump for ~1-2 week as he ran out of his insulin pump supplies. Patient tried to substitute his normal insulin regimen with NovoLog but became more symptomatic Coffee ground emesis only started day of admission. Denied prior hx of Bleeding. Was At [facility] in August 2024 with Nausea/Vomiting/Abd pain. Had a CT at the time that showed mildly hyperemic colon suspicious for colitis. Started on insulin drip in ED and admitted to ICU continue empiric IV zosyn (11/18-) Blood cx: NGTD Afebrile, leukocytosis improving GI consulted. Tentative plan for EGD today IV fluids, IV protonix anion gap closed. Labs improving continue insulin drip for now, anticipate off drip after EGD Conitnue NPO for now, pending further input from GI Agitated, noncompliant with NPO order overnight. Drank some liquids overnight. Educated on risk of bleeding, increased acid production, worsening DKA if taking PO too early 1 episode of nonbloody emesis overnight reported yellowish in color LACY, prerenal prerenal, in setting of dka; vomiting Continue to monitor renal function Monitor and replete electrolytes as needed continue insulin drip for now, anticipate off drip after EGD Daily labs Chronic back pain Hx Anxiety/Depression/PTSD confirm home meds, restart as appropriate VTE: DC lovenox given hematemesis GI: IV protonix BID Code: Full Dispo: Home, ~1-2 days Pending EGD, N/V improve, tolerating diet without issues Time Spent Managing Pts Care (In Minutes): 55
[2024-11-19] MEDS: KCL 20 MEQ/100 mL IVPB 20 MEQ/100 ML BAG IV SCH (08:14)
[2024-11-19] MEDS: MAGNESIUM SULFATE 1 gm IVPB 1 GM/100 ML BAG IV ONE (08:16)
[2024-11-19 11:43] VITALS: BP 139/77; TEMP 98.6
[2024-11-19] MEDS: NA CHLORIDE 0.9% 500 ML ONE (13:00)
--- NOTE | 2024-11-19 14:04 | CON ---
Date of Consultation: 11/18/2024 Reason For Consultation: Coffee-ground emesis. History Of Present Illness: The patient is a 34-year-old white male with history of diabetes type 1, colitis, chronic back pain, PTSD, anxiety, and depression. Patient presented to the hospital in [place] bet[place] ketoacidosis with persistent nausea, vomiting, and upper abdominal pain. The patient states he had been retching and then coffee-ground emesis began. Past Medical History: Significant for diabetes type 1. The patient's diabetic pump had stopped work ing, has been unable to fix it. He has been on IV injection insulin and has been trying to control w ith that, but unsuccessful. Also history of colitis, chronic back pain, PTSD, generalized anxiety di sorder, and depression. Medicines: See list. Allergies: NKDA. Social History: He is , 1 child. He says he does not smoke, but he does vape. No alcohol. Family History: Father alive with diabetes. Mother alive with hypercholesterolemia. Review of Systems: The patient has nausea, vomiting, midepigastric pain, coffee-ground emesis, lethargic, tired, irritab le. Physical Examination: Vital Signs: The patient is 6 feet 2 inches, 247 pounds, BMI 18.9 kg/m2, temperature 97.9 degrees Fa hrenheit, pulse 70, respirations 14, blood pressure 134/80, O2 saturation 98%. General: He is well nourished, well developed, somewhat thin male lying in bed, in no acute distress . HEENT: Normocephalic, atraumatic. Anicteric. Pupils equal, round, and reactive to light. Extraocu lar movements are intact. Oropharynx clear. Neck: Supple. No masses. Respirations: Clear to auscultation bilaterally. Cardiac: Regular rate and rhythm. No gallops. Abdomen: Positive bowel sounds. Soft, nontender, nondistended. No hepatosplenomegaly. Had mild mi depigastric pain, but no peritoneal sign. No rebound. Extremities: No clubbing, cyanosis, or edema. 2+ pulses. Neuro: Alert and oriented x3, grossly nonfocal. 5/5 motor sensation to light touch. Laboratory Data: The patient has a white count of 26.4 down from 27, hemoglobin of 15, down from 16. 3, MCV of 89, platelet count 133, polys of 86%, lymphocytes 9%, monocytes 5%. PT of 11, INR of 1, PT T of 33.4. The patient has sodium 135, potassium 3.7, chloride 105, bicarb 18, BUN of 18, creatinine of 1.26, glucose 288. Yesterday, had an AST of 14, ALT of 34, alkaline phosphatase 164, total prote in 9.4, albumin 5.2. Impression: 1. Coffee-ground emesis secondary to intractable nausea, vomiting, diabetic ketoacidosis, probably Ma [place] tear that is causing this bleeding with just vomiting from diabetic ketoacidosis. 2. Diabetic ketoacidosis, intractable nausea, vomiting, mid epigastric pain. 3. History of diabetes type 1, colitis, chronic back pain, post-traumatic stress disorder, generalize d anxiety disorder, depression. Recommendation: 1. Continue IV fluids and DKA protocol in the ICU. 2. Continue serial H and H and transfuse p.r.n. 3. PPI therapy. 4. EGD, upper endoscopy. JOHANA/TEJA Voice ID: [id number] Report ID: [id number]
--- NOTE | 2024-11-20 06:57 | P.DS ---
Admission Date: 11/17/24 Discharge Date: 11/19/24 Disposition: AMA-LEFT AGAINST MEDICAL ADVIC Discharge Condition: FAIR Reason for Admission: DKA Consultations: GI - Dr. Granger Brief History of Present Illness: 34yo M, PMH: type 1 diabetes mellitus currently on insulin pump. He presented to the ER complaining of intractable nausea and vomiting ongoing for the past week. Patient states that his insulin pump stop malfunctioning approximately 1 week ago. He tried to substitute his regimen with NovoLog, no long-acting insulin. He became increasingly symptomatic. He arrived in the ER hypovolemic. During my evaluation, patient was having coffee-ground emesis. As per at bedside, he did not have nonbloody emesis until now. He is being admitted to ICU for DKA. Hospital Course: Problem List: DKA IDDM1 on insulin pump Coffee-Ground Emesis LACY, prerenal Chronic back pain Hx Anxiety/Depression/PTSD Hx Colitis Patient presented with presents with coffee-ground emesis associated with body aches, inability to tolerate PO intake. He states he has been off his insulin pump for ~1-2 weeks due to running out of his insulin supplies. Patient was found to be in DKA on arrival with associated LACY (Cr 1.58), Leukocytosis (27.0). Patient was started on an insulin drip and was admitted to ICU. He received empiric IV antibiotics in addition to IV protonix, IV fluids and had improvement of his symptoms. Insulin drip was stopped as DKA resolved. GI was consulted and recommended EGG to further evaluate however procedure was c ancelled as patient was agitated, upset, verbally abusive and refused to answer pre-op anesthesiology questions and refused the procedure. Patient was known to be difficult throughout his hospitalization -very rude, verbally abusive to staff and visitors. He was refusing IVs, lab draws, vital checks, telemetry. After the procedure was cancelled, patient decided to leave A. I saw him in the morning, and patient left quickly after returning from pre-op area. Prior to me being able to speak with him. Physical Exam: GEN: Alert, oriented, agitated / angry CV: Regular rate and rhythm, no edema Pulm: Nonlabored respirations on room air, clear bilaterally ABD: soft, mild diffuse tenderness, nondistended Neuro: Normal speech, moves all extremities without issue Vital Signs/Physical Exam: Temp Pulse Resp BP Pulse Ox 98.6 F 82 14 139/77 99 11/19/24 11:40 11/19/24 11:40 11/19/24 02:32 11/19/24 11:40 11/19/24 11:40 Laboratory Data at Discharge: WBC 18.80 thou/uL (4.3-10.9) H 11/19/24 05:04 Hgb 13.4 g/dL (13.6-17.9) L D 11/19/24 05:04 Hct 38.6 % (39.6-49.0) L 11/19/24 05:04 Plt Count 262 thou/uL (152-406) 11/19/24 05:04 PT 11.0 SECONDS (10-13.0) 11/17/24 20:05 INR 0.96 11/17/24 20:05 APTT 33.4 SECONDS (27.2-37.4) 11/17/24 20:05 Sodium 139 mEq/L (136-145) 11/19/24 05:04 Potassium 3.3 mEq/L (3.5-5.1) L 11/19/24 05:04 BUN 15 mg/dL (7-18) 11/19/24 05:04 Creatinine 1.22 mg/dL (0.70-1.30) 11/19/24 05:04 Glucose 193 mg/dL (74-106) H 11/19/24 05:04 Phosphorus 2.7 mg/dL (2.5-4.9) 11/19/24 05:04 Magnesium 1.7 mg/dL (1.6-2.4) 11/19/24 05:04 Total Bilirubin 0.7 mg/dL (0.2-1.0) 11/17/24 19:27 AST 14 U/L (15-37) L 11/17/24 19:27 ALT 32 U/L (16-61) 11/17/24 19:27 Alkaline Phosphatase 164 U/L (45-117) H 11/17/24 19:27 Lipase 15 U/L (13-75) 11/19/24 05:04 Home Medications: Promethazine Tab [Phenergan*] 25 mg PO Q6H PRN 11/18/24 [facility]: [facility] [Primary Care Provider] - Time spent managing pt's care (in minutes): 45
--- NOTE | 2024-11-23 12:42 | EKG ---
Test Date: 2024-11-17 Test Time: 19:38:11 Finisher Polisher: JOSE L MEASUREMENT RESULTS: Intervals: Rate: 61 RI: 118 QRSD: 98 QT: 406 QTc: 408 [place]: P: 63 RI: 118 QRS: 92 T: 74 INTERPRETIVE STATEMENTS: Normal sinus rhythm Rightward axis Incomplete right bundle branch block ST elevation, consider early repolarization, pericarditis, or injury Abnormal ECG Compared to ECG 09/03/2024 19:38:05 Right-axis deviation now present Incomplete right bundle-branch block now present ST (T wave) deviation now present Sinus arrhythmia no longer present Electronically Signed On 11-23-24 12:29:36 CDT by Brian Dolan
== END 2024-11-19 14:10 | disposition left against medical advice (07) | DRG 919 ==
LOC: ER 18:36 → ERHOLD 23:44 → 3RD-ICU 11-18 00:06
PROVIDERS: ADMIT Internal Medicine; ATTEND Hospitalist
DX: T85.614A Breakdown (mechanical) of insulin pump, initial encounter (principal); E10.10 Type 1 diabetes mellitus with ketoacidosis without coma; N17.9 Acute kidney failure, unspecified; K92.0 Hematemesis; F31.9 Bipolar disorder, unspecified; F41.1 Generalized anxiety disorder; F43.10 Post-traumatic stress disorder, unspecified; G89.29 Other chronic pain; M54.9 Dorsalgia, unspecified; Z79.4 Long term (current) use of insulin; Z96.41 Presence of insulin pump (external) (internal); Z53.29 Procedure and treatment not carried out because of patient's decision for other reasons
CPT/HCPCS: 36415; 80048; 80053; 81001; 82947; 83605; 83690; 83735; 84100; 85025; 85610; 85730; 87040; 93005; 96361; 96365; 96366; 96372; 96375; 99285; J1171; J1200; J1815; J2405; J2470; J2543; J2550; J2765; J3475; J3480; J7030; J7040; J7799